=== PATIENT | male | born 1940 | race Caucasian/White ===

== ENCOUNTER 2021-05-28 11:07 | Inpatient (IN) ==
--- NOTE | 2021-05-28 11:11 | Emergency Department Note ---
Impression & Plan Right ureteral calculus, Complicated UTI (urinary tract infection), Hypomagnesemia, Hydronephrosis due to obstruction of ureter, Acute on chronic renal failure ED Provider Note NAME: ZABRINA MATHEWS AGE: 80 SEX: M ARRIVES VIA: Ambulance INFORMANT: Patient, EMS ED PROVIDER(S): Abhilash Arreguin MD CHIEF COMPLAINT: Worsening kidney function, edema, referred. 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 The patient was admitted to [facility] rehab following an admission to [facility] in the setting of having recurrent falls at home. Patient reports he has been feeling increasing weakness over the past several days. He denies any shortness of breath from his recent dyspnea with minimal exertion which he attributes to his deconditioning. He denies any fevers, cough, congestion, nausea, vomiting, diarrhea. He arrives with a Ortiz catheter in place which he understands was placed by [facility] to track urine output and does not believe he was retaining urine. he patient was admitted to [facility] from 05/06-05/08 where the patient had a stent exchange was additionally noted to have a positive urine culture where he was treated with antibiotics. Patient was then admitted to [facility] from 05/21-05/25 for prolonged downtime setting of having urinary infection and acute on chronic renal failure where his creatinine 2. Per records the patient has a history of multidrug resistant Pseudomonas, which was sensitive to cefepime. He was treated with this until he was changed to oral Omnicef on his discharged to his facility. Patient was sent from his acute rehab for worsening renal function despite IV fluid hydration with creatinine rising from 2.4 on 05/21-5.3 today. BUN has risen from 61-75. The patient's potassium was 5.7. The patient's bicarb was 13 with an anion gap of 18. On arrival the patient is chronically ill-appearing but in no acute distress, afebrile stable vital signs. He appears hypervolemic 1+ edema of the bilateral upper and lower extremities. Abdomen is nontender EKG without overt acute ischemia. Chest x-ray with question of left basilar opacity however better characterized on CT of the abdomen pelvis which is more c onsistent with atelectasis. C 14.2K. Platelets within normal limits. H/H 01/25.2 without recent values for comparison. VBG is unremarkable without acidemia. Chemistry without significant metabolic acidosis with bicarb of 20 and normal anion gap. Creatinine continues to remain elevated at 5.4 with BUN of 76. Lactic acid 0.8, within normal limits. Magnesium 1.4 with repletion initiated. Troponin 0.03, within normal limits. Lipase is not elevated. Procalcitonin is mildly elevated 0.78 in the setting of the patient's CKD. UA is suspicious for infection with WBCs and 1+ bacteria. Covid-19 RNA, NAAT negative. CT of the abdomen pelvis demonstrates obstructing 7 mm right UPJ stone with a ssociated hydronephrosis. Additional note is made of the patient's left ureteral stent with gas that is likely related to recent stent exchange. Evidence of cystitis is also seen. Case was discussed with Kathie Ulloa PAC with Dr. [facility] hospitalist, who will evaluate the patient for admission. Case was discussed with RISHABH Bello Urology PAC with R[facility]gett ology. Appreciate recommendations. They will take patient to OR for ureteral stent. Admitting team updated. Triage Nursing notes reviewed and agree them. Prior medical records reviewed Vital Signs: reviewed and remarkable for no significant abnormalities Differential diagnosis: Infection, dehydration, metabolic abnormality, hypo/hyperglycemia, electrolyte disturbance, anemia, hypoxia, cardiac sources, intracerebral event, toxicologic, neurologic, as well as other pathologies. ER treatment provided: See below. Diagnostics interpreted by me: ECG: Sinus rhythm with first-degree AV block, 70 bpm, no ectopy, no overt ST elevation or depression, QTC 423, QRS 88 Cardiac Monitoring: An order for continuous cardiac monitoring was placed and demonstrated sinus rhythm with first-degree AV block, 70 bpm, no ectopy. Laboratory studies: See below Imaging studies: See below Consultation(s): Case was discussed with Kathie Ulloa PAC with Dr. Davis [facility] hospitalist, who will evaluate the patient for admission. RISHABH Bello Urology PAC with [facility]. 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 The patient was admitted to [facility] rehab following an admission to [facility] in the setting of having recurrent falls at home. Patient reports he has been feeling increasing weakness over the past several days. He denies any shortness of breath from his recent dyspnea with minimal exertion which he attributes to his deconditioning. He denies any fevers, cough, congestion, nausea, vomiting, diarrhea. He arrives with a Ortiz catheter in place which he understands was placed by [facility] to track urine output and does not believe he was retaining urine. he patient was admitted to [facility] from 05/06-05/08 where the patient had a stent exchange was additionally noted to have a positive urine culture where he was treated with antibiotics. Patient was then admitted to [facility] from 05/21-05/25 for prolonged downtime setting of having urinary infection and acute on chronic renal failure where his creatinine 2. Per records the patient has a history of multidrug resistant Pseudomonas, which was sensitive to cefepime. He was treated with this until he was changed to oral Omnicef on his discharged to his facility. Patient was sent from his acute rehab for worsening renal function despite IV fluid hydration with creatinine rising from 2.4 on 05/21-5.3 today. BUN has risen from 61-75. The patient's potassium was 5.7. The patient's bicarb was 13 with an anion gap of 18. ROS: See above HPI for pertinent positives & negatives. A total of 10 systems reviewed and were otherwise negative. VITALS:See Below PHYSICAL EXAMINATION: GENERAL: Awake, alert, chronically ill-appearing, in no distress HENT: Normocephalic, atraumatic. Oropharynx unremarkable. EYES: Normal conjunctiva. Sclera non-icteric. NECK: Supple. No nuchal rigidity. FROM. No JVD. RESPIRATORY: Clear to auscultation. CARDIAC: Regular rate, normal rhythm. Extremities warm and well perfused. Pulses equal. ABDOMEN: Soft, non-distended. No tenderness to palpation. No rebound or guarding. No masses. RECTAL: Deferred. MUSCULOSKELETAL: Chest examination reveals no tenderness. The back is symmet rical on inspection without obvious abnormality. There is no CVA tenderness to palpation. No joint edema. EXTREMITIES: Calves are equal size bilaterally and non-tender. 1+ BLE and BUE edema. No discoloration. NEURO: Normal sensorium. No sensory or motor deficits noted. SKIN: No rash or jaundice noted. ED COURSE: Critical Care: I have personally spent greater than 95 minutes of critical care time in the direct management of this patient. This includes bedside care, interpretation of diagnostic studies, and testing, discussion with consultants, patient, and family members, and other required patient management activities. This 95 minutes is in excess of all separately billable procedures. 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 Bilateral renal masses BPH (benign prostatic hyperplasia) Complicated UTI (urinary tract infection) HLD (hyperlipidemia) HTN (hypertension) Pressure ulcer sacrum, unstageable 05/21/21 PVD (peripheral vascular disease) Renal oncocytoma Surgical History History of cystoscopy 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 History of partial nephrectomy History of right hip replacement History of total knee replacement (TKR) Hx of hemorrhoidectomy Family History Mother , 85 Parkinson disease Father COPD (chronic obstructive pulmonary disease) CHF (congestive heart failure) Social History Smoking Status: Never smoker Second Hand Exposure: No; Do You Dip or Chew Tobacco: No; Tobacco Cessation Education Requested by Patient: No Hx Alcohol Use: No Hx Substance Use: No Preferred Language: Romansh Communication Ability: Effective 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 Beliefs That Will Affect Care: None marital status: Single Current Living Situation: Rehab Current Living Situation Comment: pt was at [facility] prior to ER admi ssion Other Information That Helps Us Care for You: No Feels Safe at Home: Yes Safety Concerns: Feels Safe At This Time Assistive Devices: Walker Allergies Allergies Allergy/AdvReac Type Severity Reaction Status Date / Time wheat Allergy Mild SINUS Verified 09/29/06 13:06 PROBLEMS bretylium Allergy Unknown Verified 05/28/21 11:40 pollen extracts Allergy Unknown Verified 05/28/21 11:40 oxycodone AdvReac Mild CONFUSION,"FEELS Verified 05/02/09 02:33 LIKE I'M DRUNK" CONTRASTMEDIA Allergy Intermediate HIVES, Uncoded 05/28/21 11:41 TACHYCARIDA Home Meds Home Medications Medication Instructions Recorded Confirmed acetaminophen 325 mg tablet 650 mg PO Q4 PRN 05/28/21 05/28/21 (Tylenol) allopurinol 100 mg tablet 200 mg PO DAILY 05/28/21 05/28/21 aspirin 81 mg tablet,delayed 81 mg PO DAILY 05/28/21 05/28/21 release atenolol 50 mg tablet 50 mg PO DAILY 05/28/21 05/28/21 atorvastatin 20 mg tablet 20 mg PO DAILY 05/28/21 05/28/21 cefdinir 300 mg capsule 300 mg PO DAILY 05/28/21 05/28/21 cholecalciferol (vitamin D3) 25 25 mcg PO DAILY 05/28/21 05/28/21 mcg (1,000 unit) tablet (Vitamin D3) collagenase clostridium histo. 250 1 applic TOPICAL DAILY 05/28/21 05/28/21 unit/gram topical ointment (Santyl) cyanocobalamin (vitamin B-12) 1,000 mcg PO DAILY 05/28/21 05/28/21 1,000 mcg tablet (Vitamin B-12) docusate sodium 100 mg tablet 100 mg PO BID 05/28/21 05/28/21 enoxaparin 30 mg/0.3 mL 30 mg SUBCUT DAILY 05/28/21 05/28/21 subcutaneous solution fluticasone propionate 50 2 spray INTRANASAL DAILY 05/28/21 05/28/21 mcg/actuation nasal spray,suspension loratadine 10 mg tablet 10 mg PO DAILY 05/28/21 05/28/21 losartan 25 mg tablet 25 mg PO QPM 05/28/21 05/28/21 montelukast 10 mg tablet 10 mg PO DAILY 05/28/21 05/28/21 omeprazole 20 mg capsule,delayed 20 mg PO DAILY 05/28/21 05/28/21 release pantoprazole 40 mg tablet,delayed 40 mg PO HS 05/28/21 05/28/21 release polyethylene glycol 3350 17 gram 17 g PO .DAILY @LUNCH PRN 05/28/21 05/28/21 oral powder packet (Miralax) psyllium 3.4 gram/5.8 gram oral 3.4 g PO DAILY 05/28/21 05/28/21 powder sennosides 8.6 mg-docusate sodium 1 tab-cap PO .DAILY @ LUNCH PRN 05/28/21 05/28/21 50 mg tablet (Senokot-S) sertraline 50 mg tablet 50 mg PO DAILY 05/28/21 05/28/21 tamsulosin 0.4 mg capsule 0.4 mg PO DAILY 05/28/21 05/28/21 tolterodine 2 mg tablet 4 mg PO DAILY 05/28/21 05/28/21 Results & Data (ED) Vital Signs Vital Signs - 24 hr 05/28/21 11:16 05/28/21 11:31 05/28/21 13:16 Temperature 36.8 C Temperature Source Oral Pulse Rate 72 Pulse Rate [Apical] 70 74 Respiratory Rate 19 18 16 Blood Pressure 150/82 H Blood Pressure [Left Arm] 137/78 152/91 H Blood Pressure Mean 104 Blood Pressure Mean [Left Arm] 97 111 Pulse Oximetry 95 95 93 Oxygen Delivery Method Room Air Room Air Room Air Sepsis Recent Fever Within 48 Hours No Sepsis New/Unexplained Change in Mental Status No Sepsis Action Taken by Nursing No Action Required Laboratory Data Attestation: I reviewed the patient's lab results. Result diagrams: 05/28/21 12:04 05/28/21 20:14 Lab Results 05/28/21 05/28/21 05/28/21 Range/Units 12:02 12:04 12:04 WBC 14.20 H (4.8-10.8) K/uL RBC 3.18 L (4.7-6.1) M/uL Hgb 10.0 L (14.0-18.0) g/dL Hct 31.2 L (42-52) % MCV 98.1 (80-100) fL MCH 31.4 (25-34) pg MCHC 32.1 (32-36) g/dL RDW Std Deviation 55.4 H (36.4-46.3) fL RDW Coeff of Raymundo 15.5 H (11.5-14.5) % Plt Count 301 (130-400) K/uL MPV 10.0 (7.4-10.4) fL Immature Gran % (Auto) 0.9 % Neut % (Auto) 75.5 % Lymph % (Auto) 11.4 % [place] % (Auto) 10.2 % Eos % (Auto) 1.9 % Baso % (Auto) 0.1 % Neut # (Auto) 10.72 H (1.4-6.5) K/uL Lymph # (Auto) 1.62 (1.2-3.4) K/uL [place] # (Auto) 1.45 H (0.11-0.59) K/uL Eos # (Auto) 0.27 (0-0.5) K/uL Baso # (Auto) 0.01 (0-0.2) K/uL Immature Gran # (Auto) 0.13 H (0.00-0.02) K/uL PT 12.3 H (9.0-12.0) Seconds INR 1.2 H (0.9-1.1) VBG pH (7.36-7.41) VBG pCO2 (38-50) mmHg VBG pO2 mmHg VBG HCO3 mmol/L VBG O2 Saturation % VBG Base Excess mEq/L Barometric Pressure mm/Hg Sodium (136-145) mmol/L Potassium (3.5-5.1) mmol/L Chloride (98-107) mmol/L Carbon Dioxide (21-32) mmol/L Anion Gap (3-11) BUN (6-23) mg/dl Creatinine (0.6-1.4) mg/dl Est Cr Clr Drug Dosing ml/min Est GFR ( Amer) ml/min Est GFR (Non-Af Amer) ml/min BUN/Creatinine Ratio (10-20) Glucose (70-99(Fasting)) mg/dl Lactate (0.4-2.0) mmol/L Calcium (8.5-10.1) mg/dl Phosphorus (2.5-4.9) mg/dl Magnesium (1.7-2.4) mg/dl Total Bilirubin (0.2-1.0) mg/dl AST (13-39) U/L ALT (7-52) U/L Alkaline Phosphatase (34-104) U/L Total Creatine Kinase (30-223) U/L Troponin I (0-0.04) ng/ml Total Protein (6.0-8.3) gm/dl Albumin (3.4-5.0) gm/dl Globulin (2.5-4.0) gm/dl Albumin/Globulin Ratio (0.9-2) Lipase (11-82) U/L Procalcitonin (0-0.5) ng/ml Urine Color Urine Appearance (Clear) Urine pH (4.5-7.5) Ur Specific [place] (1.000-1.030) Urine Protein (Negative) Urine Glucose (UA) (Negative) Urine Ketones (Negative) Urine Blood (Negative) Urine Nitrite (Negative) Urine Bilirubin (Negative) Urine Urobilinogen (Negative) Ur Leukocyte Esterase (Negative) Urine WBC (Auto) (0-5) /hpf Urine RBC (Auto) (0-4) /hpf U Hyaline Cast (Auto) (0-5) /lpf U Epithel Cells (Auto) (0-5) /lpf Urine Bacteria (Auto) (Negative) Urine Yeast SARS-CoV-2, RNA, NAAT NEGATIVE (NEGATIVE) 05/28/21 05/28/21 05/28/21 Range/Units 12:04 12:04 12:04 WBC (4.8-10.8) K/uL RBC (4.7-6.1) M/uL Hgb (14.0-18.0) g/dL Hct (42-52) % MCV (80-100) fL MCH (25-34) pg MCHC (32-36) g/dL RDW Std Deviation (36.4-46.3) fL RDW Coeff of Raymundo (11.5-14.5) % Plt Count (130-400) K/uL MPV (7.4-10.4) fL Immature Gran % (Auto) % Neut % (Auto) % Lymph % (Auto) % [place] % (Auto) % Eos % (Auto) % Baso % (Auto) % Neut # (Auto) (1.4-6.5) K/uL Lymph # (Auto) (1.2-3.4) K/uL [place] # (Auto) (0.11-0.59) K/uL Eos # (Auto) (0-0.5) K/uL Baso # (Auto) (0-0.2) K/uL Immature Gran # (Auto) (0.00-0.02) K/uL PT (9.0-12.0) Seconds INR (0.9-1.1) VBG pH 7.36 (7.36-7.41) VBG pCO2 38 (38-50) mmHg VBG pO2 35 mmHg VBG HCO3 21 mmol/L VBG O2 Saturation 62.9 % VBG Base Excess -4.4 mEq/L Barometric Pressure 736.1 mm/Hg Sodium 134 L (136-145) mmol/L Potassium 5.0 (3.5-5.1) mmol/L Chloride 105 (98-107) mmol/L Carbon Dioxide 20 L (21-32) mmol/L Anion Gap 9 (3-11) BUN 76 H (6-23) mg/dl Creatinine 5.46 H* (0.6-1.4) mg/dl Est Cr Clr Drug Dosing 12.5 ml/min Est GFR ( Amer) 10.5 ml/min Est GFR (Non-Af Amer) 9.0 ml/min BUN/Creatinine Ratio 13.9 (10-20) Glucose 113 H (70-99(Fasting)) mg/dl Lactate (0.4-2.0) mmol/L Calcium 8.6 (8.5-10.1) mg/dl Phosphorus 2.7 (2.5-4.9) mg/dl Magnesium 1.4 L (1.7-2.4) mg/dl Total Bilirubin 0.5 (0.2-1.0) mg/dl AST 15 (13-39) U/L ALT 17 (7-52) U/L Alkaline Phosphatase 65 (34-104) U/L Total Creatine Kinase 23 L (30-223) U/L Troponin I 0.03 (0-0.04) ng/ml Total Protein 6.1 (6.0-8.3) gm/dl Albumin 2.8 L (3.4-5.0) gm/dl Globulin 3.3 (2.5-4.0) gm/dl Albumin/Globulin Ratio 0.8 L (0.9-2) Lipase 36 (11-82) U/L Procalcitonin 0.78 H (0-0.5) ng/ml Urine Color Urine Appearance (Clear) Urine pH (4.5-7.5) Ur Specific [place] (1.000-1.030) Urine Protein (Negative) Urine Glucose (UA) (Negative) Urine Ketones (Negative) Urine Blood (Negative) Urine Nitrite (Negative) Urine Bilirubin (Negative) Urine Urobilinogen (Negative) Ur Leukocyte Esterase (Negative) Urine WBC (Auto) (0-5) /hpf Urine RBC (Auto) (0-4) /hpf U Hyaline Cast (Auto) (0-5) /lpf U Epithel Cells (Auto) (0-5) /lpf Urine Bacteria (Auto) (Negative) Urine Yeast SARS-CoV-2, RNA, NAAT (NEGATIVE) 05/28/21 05/28/21 Range/Units 12:04 12:42 WBC (4.8-10.8) K/uL RBC (4.7-6.1) M/uL Hgb (14.0-18.0) g/dL Hct (42-52) % MCV (80-100) fL MCH (25-34) pg MCHC (32-36) g/dL RDW Std Deviation (36.4-46.3) fL RDW Coeff of Raymundo (11.5-14.5) % Plt Count (130-400) K/uL MPV (7.4-10.4) fL Immature Gran % (Auto) % Neut % (Auto) % Lymph % (Auto) % [place] % (Auto) % Eos % (Auto) % Baso % (Auto) % Neut # (Auto) (1.4-6.5) K/uL Lymph # (Auto) (1.2-3.4) K/uL [place] # (Auto) (0.11-0.59) K/uL Eos # (Auto) (0-0.5) K/uL Baso # (Auto) (0-0.2) K/uL Immature Gran # (Auto) (0.00-0.02) K/uL PT (9.0-12.0) Seconds INR (0.9-1.1) VBG pH (7.36-7.41) VBG pCO2 (38-50) mmHg VBG pO2 mmHg VBG HCO3 mmol/L VBG O2 Saturation % VBG Base Excess mEq/L Barometric Pressure mm/Hg Sodium (136-145) mmol/L Potassium (3.5-5.1) mmol/L Chloride (98-107) mmol/L Carbon Dioxide (21-32) mmol/L Anion Gap (3-11) BUN (6-23) mg/dl Creatinine (0.6-1.4) mg/dl Est Cr Clr Drug Dosing ml/min Est GFR ( Amer) ml/min Est GFR (Non-Af Amer) ml/min BUN/Creatinine Ratio (10-20) Glucose (70-99(Fasting)) mg/dl Lactate 0.8 (0.4-2.0) mmol/L Calcium (8.5-10.1) mg/dl Phosphorus (2.5-4.9) mg/dl Magnesium (1.7-2.4) mg/dl Total Bilirubin (0.2-1.0) mg/dl AST (13-39) U/L ALT (7-52) U/L Alkaline Phosphatase (34-104) U/L Total Creatine Kinase (30-223) U/L Troponin I (0-0.04) ng/ml Total Protein (6.0-8.3) gm/dl Albumin (3.4-5.0) gm/dl Globulin (2.5-4.0) gm/dl Albumin/Globulin Ratio (0.9-2) Lipase (11-82) U/L Procalcitonin (0-0.5) ng/ml Urine Color Yellow Urine Appearance Turbid A (Clear) Urine pH 7.0 (4.5-7.5) Ur Specific [place] 1.009 (1.000-1.030) Urine Protein 2+ H (Negative) Urine Glucose (UA) Trace H (Negative) Urine Ketones Negative (Negative) Urine Blood 3+ H (Negative) Urine Nitrite Negative (Negative) Urine Bilirubin Negative (Negative) Urine Urobilinogen Negative (Negative) Ur Leukocyte Esterase 3+ H (Negative) Urine WBC (Auto) >30 H (0-5) /hpf Urine RBC (Auto) 10-30 H (0-4) /hpf U Hyaline Cast (Auto) 1-5 (0-5) /lpf U Epithel Cells (Auto) >30 H (0-5) /lpf Urine Bacteria (Auto) 1+ H (Negative) Urine Yeast Not Reportable SARS-CoV-2, RNA, NAAT (NEGATIVE) Administered Medications Diatrizoate Meglumine (Diatrizoate Meglumine 30% 100ml Vial) 50 ml INSTIL UD PRN PRN Reason: xray Stop: 06/01/21 14:51 Last Admin: 05/28/21 16:45 Dose: 20 ml Documented by: [id number] Docusate Sodium (Docusate Sodium 100 Mg Cap) 100 mg PO BID [facility] Stop: 06/27/21 20:59 Last Admin: 05/28/21 20:34 Dose: 100 mg Documented by: [id number] Doxycycline Hyclate (Doxycycline Hyclate 100 Mg Cap) 100 mg PO BID [facility]; Protocol Stop: 06/04/21 18:59 Last Admin: 05/28/21 20:34 Dose: 100 mg Documented by: [id number] Pantoprazole Sodium (Pantoprazole 40 Mg Tab) 40 mg PO HS [facility] Stop: 06/27/21 20:59 Last Admin: 05/28/21 20:34 Dose: 40 mg Documented by: [id number] Discontinued Medications Cefepime HCl (Maxipime) 2,000 mg in 20 mls @ 5 mls/min IV NOW STA Stop: 05/28/21 11:58 Last Admin: 05/28/21 13:01 Dose: 5 mls/min Documented by: [id number] Magnesium Sulfate/Dextrose (Magnesium Sulfate / D5w) 1 gm in 100 mls @ 100 mls/hr IV NOW STA Stop: 05/28/21 13:53 Last Infusion: 05/28/21 14:21 Dose: 0 mls/hr Documented by: [id number] Admin: 05/28/21 13:01 Dose: 100 mls/hr Documented by: [id number] Magnesium Sulfate/Dextrose (Magnesium Sulfate / D5w) 1 gm in 100 mls @ 50 mls/hr IV ONE STA Stop: 05/28/21 16:48 Last Infusion: 05/28/21 16:49 Dose: 0 mls/hr Documented by: [id number] Admin: 05/28/21 14:49 Dose: 50 mls/hr Documented by: [id number] Miscellaneous Information (Consult Pharmacy) 1 ea N/A NOW STA Stop: 05/28/21 14:23 Last Admin: 05/28/21 14:22 Dose: 1 ea Documented by: [id number] Imaging Data Radiologist's Impression: Chest X-Ray 05/28/21 11:19 XR chest 1V portable CLINICAL HISTORY: Chest Pain. COMPARISON STUDY: 04/08/2008 TECHNIQUE: 1 view of the chest FINDINGS: Single frontal view of the chest demonstrates the cardiomediastinal silhouette to be within normal limits. Compared to previous examination, there is a decreased inspiratory effort with elevation of hemidiaphragms and crowding the bronchovascular markings at the lung bases and centrally. Additionally, there is increase alveolar opacity at the left lung base in the presence of early pneumonia cannot be excluded. Follow-up PA and lateral radiographs would be helpful. There is also evidence for small left pleural effusion. There is no evidence for right pleural effusion. There is no evidence for vascular congestion. There is no acute osseous pathology. IMPRESSION: 1. Decreased inspiratory effort with patchy alveolar opacity at the left lung base and small left pleural effusion suspicious for early pneumonia. Follow-up PA and lateral radiographs would be helpful for further evaluation. ACT 112: Negative or not required by law. Electronically signed by: Vladimir Toney M.D. 05/28/2021 12:56 PM Abdomen/Pelvis CT 05/28/21 11:33 CT OF THE ABDOMEN AND PELVIS WITHOUT CONTRAST CLINICAL HISTORY: Acute on chronic renal failure. COMPARISON STUDY: CT of the abdomen and pelvis April 09, 2008. TECHNIQUE: Axial images of the abdomen and pelvis were obtained without IV contrast. Images were reviewed in the axial, sagittal, and coronal planes. Automated exposure control was utilized for the study. A dose lowering technique was utilized adhering to the principles of ALARA. FINDINGS: Cardiomegaly is noted. There are small bilateral pleural effusions. Associated subpleural opacities favor atelectasis. Anasarca is present with body wall edema. No pneumatosis, free air or portal venous gas is present. A left ureteral stent is in place. There is no left hydronephrosis. Gas within the left collecting system may be due to recent instrumentation. There is marked left renal atrophy. A 7 mm right ureteropelvic junction calculus results in moderate right hydronephrosis. 3 mm calculus within lower pole of the right kidney is present. No left ureteral calculi are present. Ortiz balloon within the bladder is noted with gas. Bladder wall thickening is present. Prostate is enlarged, measuring 6.3 cm in transverse dimension. There is bilateral perinephric stranding. Water attenuation bilateral renal lesions favor cysts. 7.7 cm cystic lesion within lower pole of the right kidney may have a mildly thickened wall with minimal layering material. Note is made of a hyperdense 6.3 cm right renal mass which contains calcifications. This corresponds to a fat-containing lesion on CT of April 09, 2018. This represents an angiomyolipoma. There is an indeterminate 3 cm [renal lesion within the anterior cortex of the lower pole on axial image 245 of 521. There is no evidence for a bowel obstruction. Colonic diverticulosis is noted without evidence for acute diverticulitis. Unenhanced images of the spleen and adrenal glands are unremarkable. There are pancreatic parenchymal calcifications consistent with chronic pancreatitis. No biliary or pancreatic ductal dilatation is present. No peripancreatic or pericholecystic stranding. Right hip arthroplasty is noted. Note is made of widening of the anterior aspect of the T9-T10 disc space with vacuum disc phenomenon. There is also gas within the bilateral facet joints at this level. No associated fracture is identified. Aneurysmal dilatation of the infrarenal abdominal aorta is noted, measuring 4 cm. There is also aneurysmal dilatation of the bilateral common iliac arteries and the right internal iliac artery. Right common iliac artery measures 2.9 cm in caliber of the right internal iliac artery measures 3.2 cm 2 left common il iac artery measures 3 cm. There is no evidence for rupture. There is extensive atherosclerotic plaque. IMPRESSION: 1. 7 mm right ureteropelvic ejection calculus results in moderate right hydronephrosis with perinephric stranding. Left ureteral stent in place. No left ureteral calculi. Gas within the left collecting system is nonspecific although likely related to recent instrumentation. An infectious process could appear similar. Enlarged prostate with bladder wall thickening and adjacent infiltration. Ortiz balloon within the bladder. 2. Evidence for volume overload with small bilateral pleural effusions and body wall edema. 3. 6.3 cm hyperdense right renal lesion which corresponds to a fat-containing lesion CT of April 09, 2008. Therefore, this represents an angiomyolipoma. Indeterminate 3 cm left renal lesion. This could reflect a solid renal lesion or less likely complex cyst. 4. 4 cm infrarenal abdominal aortic aneurysm. 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 No rupture. 5. Age indeterminate widening of the anterior aspect of the T9-T10 disc space which may reflect a hyperextension injury. ACT 112: Negative or not required by law. Electronically signed by: Brendon Lorenzana M.D. 05/28/2021 1:17 PM Discharge Plan Visit Data Chief Complaint: Abnormal Labs/Diagnostic Testing Stated Complaint: ABNORMAL LABS, EDEMA TO HANDS, LEGS & FEET ED Provider: Abhilash Arreguin Discharge Problem: Right ureteral calculus, Complicated UTI (urinary tract infection), Hypomagnesemia, Hydronephrosis due to obstruction of ureter, Acute on chronic renal failure Discharge Instructions Interventions: ED Discharge Assessment Last Done: 05/28/21 15:20 Discharge Problem: Acute on chronic renal failure Qualifiers: Acute renal failure type: unspecified Chronic kidney disease stage: unspecified stage Qualified Code(s): N17.9 - Acute kidney failure, unspecified
[2021-05-28] MEDS ORDERED: CEFEPIME 2,000 MG/20 ML VIAL IV STA (11:55)
[2021-05-28 12:15] LABS: Basophils # (auto) 0.01 K/uL (0-0.2); Basophils % (auto) 0.1 %; Eosinophils # (auto) 0.27 K/uL (0-0.5); Eosinophils % (auto) 1.9 %; Hematocrit (blood only) 31.2 % (42-52); Immature Granulocytes # (auto) 0.13 K/uL (0.00-0.02); Immature Granulocytes % (auto) 0.9 %; Lymphocytes # (auto) 1.62 K/uL (1.2-3.4); Lymphocytes % (auto) 11.4 %; Mean Corpuscular Hemoglobin 31.4 pg (25-34); Mean Corpuscular Hgb Conc 32.1 g/dL (32-36); Mean Corpuscular Volume 98.1 fL (80-100); Monocytes # (auto) 1.45 K/uL (0.11-0.59); Monocytes % (auto) 10.2 %; Neutrophils # (auto) 10.72 K/uL (1.4-6.5); Neutrophils % (auto) 75.5 %; Platelet Count 301 K/uL (130-400); RDW Coefficient of Variation 15.5 % (11.5-14.5); RDW Standard Deviation 55.4 fL (36.4-46.3); Red Blood Count 3.18 M/uL (4.7-6.1)
[2021-05-28 12:19] LABS: Base Excess VBG -4.4 mEq/L; Oxygen Saturation VBG 62.9 %; pH VBG 7.36 (7.36-7.41)
[2021-05-28 12:24] LABS: INR 1.2 (0.9-1.1); Prothrombin Time 12.3 Seconds (9.0-12.0)
[2021-05-28 12:44] LABS: Albumin Globulin Ratio 0.8 (0.9-2); Albumin Level 2.8 gm/dl (3.4-5.0); BUN Creatinine Ratio 13.9 (10-20); Bilirubin,Total 0.5 mg/dl (0.2-1.0); Calcium 8.6 mg/dl (8.5-10.1); Creatinine Clr Calc Pharmacy 12.5 ml/min; Est GFR (African American) 10.5 ml/min; Globulin 3.3 gm/dl (2.5-4.0); Magnesium 1.4 mg/dl (1.7-2.4); Phosphorus 2.7 mg/dl (2.5-4.9); Total Protein 6.1 gm/dl (6.0-8.3); Troponin I 0.03 ng/ml (0-0.04)
[2021-05-28] MEDS ORDERED: MAGNESIUM SULFATE / D5W 1 GM/100 ML BAG IV STA ×2 (12:54→14:49)
[2021-05-28 12:56] LABS: Appearance Urine Turbid (Clear); Bacteria Urine Automated 1+ (Negative); Bilirubin Urine Negative (Negative); Blood Urine 3+ (Negative); Color Urine Yellow; Epithelial Cell Urine Auto >30 /lpf (0-5); Glucose Urine UA Trace (Negative); Ketones Urine Negative (Negative); Leukocyte Esterase Urine 3+ (Negative); Nitrite Urine Negative (Negative); Protein Urine 2+ (Negative); Specific Gravity Urine 1.009 (1.000-1.030); Urobilinogen Urine Negative (Negative); WBC Urine Automated >30 /hpf (0-5)
--- NOTE | 2021-05-28 12:58 | XRay Report ---
XR chest 1V portable CLINICAL HISTORY: Chest Pain. COMPARISON STUDY: 04/08/2008 TECHNIQUE: 1 view of the chest FINDINGS: Single frontal view of the chest demonstrates the cardiomediastinal silhouette to be within normal li mits. Compared to previous examination, there is a decreased inspiratory effort with elevation of hem idiaphragms and crowding the bronchovascular markings at the lung bases and centrally. Additionally, there is increase alveolar opacity at the left lung base in the presence of early pneumonia cannot be excluded. Follow-up PA and lateral radiographs would be helpful. There is also evidence for small le ft pleural effusion. There is no evidence for right pleural effusion. There is no evidence for vascul ar congestion. There is no acute osseous pathology. IMPRESSION: 1. Decreased inspiratory effort with patchy alveolar opacity at the left lung base and small left ple ural effusion suspicious for early pneumonia. Follow-up PA and lateral radiographs would be helpful f or further evaluation. ACT 112: Negative or not required by law. Electronically signed by: Vladimir Toney M.D. 05/28/2021 12:56 PM
--- NOTE | 2021-05-28 13:18 | CT Scan Report ---
CT OF THE ABDOMEN AND PELVIS WITHOUT CONTRAST CLINICAL HISTORY: Acute on chronic renal failure. COMPARISON STUDY: CT of the abdomen and pelvis April 09, 2008. TECHNIQUE: Axial images of the abdomen and pelvis were obtained without IV contrast. Images were revi ewed in the axial, sagittal, and coronal planes. Automated exposure control was utilized for the indy dy. A dose lowering technique was utilized adhering to the principles of ALARA. FINDINGS: Cardiomegaly is noted. There are small bilateral pleural effusions. Associated subpleural o pacities favor atelectasis. Anasarca is present with body wall edema. No pneumatosis, free air or portal venous gas is present. A left ureteral stent is in place. There is no left hydronephrosis. Gas within the left collecting system may be due to recent instrumentation. There is marked left renal atrophy. A 7 mm right ureteropelvic junction calculus results in moderate right hydronephrosis. 3 mm calculus within lower pole of the right kidney is present. No left uretera l calculi are present. Ortiz balloon within the bladder is noted with gas. Bladder wall thickening is present. Prostate is enlarged, measuring 6.3 cm in transverse dimension. There is bilateral perineph coco stranding. Water attenuation bilateral renal lesions favor cysts. 7.7 cm cystic lesion within low er pole of the right kidney may have a mildly thickened wall with minimal layering material. Note is made of a hyperdense 6.3 cm right renal mass which contains calcifications. This corresponds to a fat -containing lesion on CT of April 09, 2018. This represents an angiomyolipoma. There is an indeterm inate 3 cm [renal lesion within the anterior cortex of the lower pole on axial image 245 of 521. Ther e is no evidence for a bowel obstruction. Colonic diverticulosis is noted without evidence for acute diverticulitis. Unenhanced images of the spleen and adrenal glands are unremarkable. There are pancre atic parenchymal calcifications consistent with chronic pancreatitis. No biliary or pancreatic ductal dilatation is present. No peripancreatic or pericholecystic stranding. Right hip arthroplasty is not ed. Note is made of widening of the anterior aspect of the T9-T10 disc space with vacuum disc phenome non. There is also gas within the bilateral facet joints at this level. No associated fracture is aubrey ntified. Aneurysmal dilatation of the infrarenal abdominal aorta is noted, measuring 4 cm. There is a lso aneurysmal dilatation of the bilateral common iliac arteries and the right internal iliac artery. Right common iliac artery measures 2.9 cm in caliber of the right internal iliac artery measures 3.2 cm 2 left common iliac artery measures 3 cm. There is no evidence for rupture. There is extensive at herosclerotic plaque. IMPRESSION: 1. 7 mm right ureteropelvic ejection calculus results in moderate right hydronephrosis with perinephr ic stranding. Left ureteral stent in place. No left ureteral calculi. Gas within the left collecting system is nonspecific although likely related to recent instrumentation. An infectious process could appear similar. Enlarged prostate with bladder wall thickening and adjacent infiltration. Ortiz ballo on within the bladder. 2. Evidence for volume overload with small bilateral pleural effusions and body wall edema. 3. 6.3 cm hyperdense right renal lesion which corresponds to a fat-containing lesion CT of March. Therefore, this represents an angiomyolipoma. Indeterminate 3 cm left renal lesion. This coul d reflect a solid renal lesion or less likely complex cyst. 4. 4 cm infrarenal abdominal aortic aneurysm. Aneurysmal dilatation of the bilateral common iliac art eries and right internal iliac artery, as above. No rupture. 5. Age indeterminate widening of the anterior aspect of the T9-T10 disc space which may reflect a hyp erextension injury. ACT 112: Negative or not required by law. Electronically signed by: Brendon Lorenzana M.D. 05/28/2021 1:17 PM
[2021-05-28] MEDS ORDERED: CONSULT PHARMACY STA (14:22)
--- NOTE | 2021-05-28 14:38 | Urology Consultation ---
Date of Consultation May 28, 2021 Assessment & Plan (1) Right ureteral calculus: (2) Hydronephrosis of right kidney: (3) ELIE (acute kidney injury): 80yo M with a chronic left ureteral stent who was admitted with ELIE and suspected UTI in the setting of an obstructing right ureteral stone. - Plan of care reviewed with Dr. Siegel, on-call urologist. - CTAP reviewed - 7mm right UPJ stone with moderate right hydronephrosis, left ureteral stent in place - Pt is afebrile, non- toxic appearing. - Labs reviewed - Wbc 14.20, Creatinine 5.46 - Urine and blood cultures pending, received IV Cefepime in ED. - Given his ELIE and suspected urinary tract infection in the context of an obstructing right ureteral stone, will proceed with OR for cystoscopy, right retrograde pyelogram, right ureteral stent placement. - Risks and benefits to be reviewed with patient by Dr. Siegel. OR notified. IV Cefepime given in ED. Covid test negative. - Patient agreeable to plan, all questions were answered. - Keep NPO. - Maintain Ortiz catheter for maximum drainage. - Continue supportive care, antibiotic therapy, and close monitoring. - Will continue to follow. Supervising Physician Co-Signing Physician Notes Discussed patient with ADRY. Agree with plan. Patient with chronic left ureteral stent with atrophied kidney. Presented with right ureteral calculus and ELIE. Risks and benefits discussed and consent obtained for right ureteral stent placement. Patient can follow up with [facility] urology for stone treatment. 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 A CT abdomen pelvis was obtained on arrival and notable for a 7mm right UPJ stone with moderate right hydronephrosis. The patient was recently admitted to [facility] rehab following an admission to [facility] in the setting of having recurrent falls at home.He was admitted to [facility] from 05/06-05/08 where the patient had a stent exchange was additionally noted to have a positive urine culture where he was treated with antibiotics. Patient was then admitted to [facility] from 05/21-05/25 for prolonged downtime in the setting of having urinary infection and acute on chronic renal failure where his creatinine 2. Per chart review, the patient had a history of multidrug resistant Pseudomonas, which was sensitive to cefepime. He was treated with this until he was changed to oral Omnicef on his discharged to his facility. On arrival, he was afebrile with mild leukocytosis. Hemodynamically stable. Creatinine 5.46. Urinalysis notable for 3+blood, 3+Leukocytes, >30WBC, 10- 30RBC, 1+Bacteria. Urine and blood cultures are pending. Dose of IV Cefepime given in ED. Pt arrived with Ortiz catheter in place which was placed by [facility] for monitoring of urine output. CT IMPRESSION: 1. 7 mm right ureteropelvic ejection calculus results in moderate right hydronephrosis with perinephric stranding. Left ureteral stent in place. No left ureteral calculi. Gas within the left collecting system is nonspecific although likely related to recent instrumentation. An infectious process could appear similar. Enlarged prostate with bladder wall thickening and adjacent infiltration. Ortiz balloon within the bladder. 2. Evidence for volume overload with small bilateral pleural effusions and body wall edema. 3. 6.3 cm hyperdense right renal lesion which corresponds to a fat-containing lesion CT of April 09, 2008. Therefore, this represents an angiomyolipoma. Indeterminate 3 cm left renal lesion. This could reflect a solid renal lesion or less likely complex cyst. 4. 4 cm infrarenal abdominal aortic aneurysm. 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 No rupture. 5. Age indeterminate widening of the anterior aspect of the T9-T10 disc space which may reflect a hyperextension injury Pt examined at bedside in the ED. Awake, resting in bed on arrival. No acute distress. Ortiz intact, draining clear yellow urine. Pt follows with [facility]. Has a hx of left ureteral stricture managed with chronic left ureteral stent. No fevers or chills. Denies nausea/vomiting. Pt denies urinary issues at baseline. Reports that he had breakfast. Allergies Allergy/AdvReac Type Severity Reaction Status Date / Time wheat Allergy Mild SINUS Verified 09/29/06 13:06 PROBLEMS bretylium Allergy Unknown Verified 05/28/21 11:40 pollen extracts Allergy Unknown Verified 05/28/21 11:40 oxycodone AdvReac Mild CONFUSION,"FEELS Verified 05/02/09 02:33 LIKE I'M DRUNK" CONTRASTMEDIA Allergy Intermediate HIVES, Uncoded 05/28/21 11:41 TACHYCARIDA Home Medications Medication Instructions Recorded Confirmed Type acetaminophen 325 mg tablet 650 mg PO Q4 PRN 05/28/21 05/28/21 History (Tylenol) allopurinol 100 mg tablet 200 mg PO DAILY 05/28/21 05/28/21 History aspirin 81 mg tablet,delayed 81 mg PO DAILY 05/28/21 05/28/21 History release atenolol 50 mg tablet 50 mg PO DAILY 05/28/21 05/28/21 History atorvastatin 20 mg tablet 20 mg PO DAILY 05/28/21 05/28/21 History cefdinir 300 mg capsule 300 mg PO DAILY 05/28/21 05/28/21 History cholecalciferol (vitamin D3) 25 25 mcg PO DAILY 05/28/21 05/28/21 History mcg (1,000 unit) tablet (Vitamin D3) collagenase clostridium histo. 250 1 applic TOPICAL DAILY 05/28/21 05/28/21 History unit/gram topical ointment (Santyl) cyanocobalamin (vitamin B-12) 1,000 mcg PO DAILY 05/28/21 05/28/21 History 1,000 mcg tablet (Vitamin B-12) docusate sodium 100 mg tablet 100 mg PO BID 05/28/21 05/28/21 History enoxaparin 30 mg/0.3 mL 30 mg SUBCUT DAILY 05/28/21 05/28/21 History subcutaneous solution fluticasone propionate 50 2 spray INTRANASAL DAILY 05/28/21 05/28/21 History mcg/actuation nasal spray,suspension loratadine 10 mg tablet 10 mg PO DAILY 05/28/21 05/28/21 History losartan 25 mg tablet 25 mg PO QPM 05/28/21 05/28/21 History montelukast 10 mg tablet 10 mg PO DAILY 05/28/21 05/28/21 History omeprazole 20 mg capsule,delayed 20 mg PO DAILY 05/28/21 05/28/21 History release pantoprazole 40 mg tablet,delayed 40 mg PO HS 05/28/21 05/28/21 History release polyethylene glycol 3350 17 gram 17 g PO .DAILY @LUNCH PRN 05/28/21 05/28/21 History oral powder packet (Miralax) psyllium 3.4 gram/5.8 gram oral 3.4 g PO DAILY 05/28/21 05/28/21 History powder sennosides 8.6 mg-docusate sodium 1 tab-cap PO .DAILY @ LUNCH PRN 05/28/21 05/28/21 History 50 mg tablet (Senokot-S) sertraline 50 mg tablet 50 mg PO DAILY 05/28/21 05/28/21 History tamsulosin 0.4 mg capsule 0.4 mg PO DAILY 05/28/21 05/28/21 History tolterodine 2 mg tablet 4 mg PO DAILY 05/28/21 05/28/21 History Patient History Social History Smoking Status: Never smoker Feels Safe at Home: Yes Review of Systems Review of Systems: All systems reviewed & are unremarkable except as noted in HPI & below Physical Exam Constitutional: well developed and well nourished; no acute distress Neck: normal visual inspection Respiratory: normal respiratory effort and able to speak in complete sentences; no labored breathing and no audible wheezes Gastrointestinal (Abdomen): Inspection/Auscultation: abdomen normal to inspection; abdomen not distended Musculoskeletal: Head/Neck/Chest: normocephalic Skin: No visible rashes or lesions to exposed skin areas Neurologic: moves all extremities and awake Psychiatric: Orientation: alert, oriented x 3 and cooperative Genitourinary: Ortiz catheter intact, draining clear yellow urine Results & Data ([facility]) Vital Signs (Past 12 Hours) Vital Signs Temp Pulse Pulse Resp BP BP Pulse Ox 05/28/21 13:16 74 16 152/91 H 93 05/28/21 11:31 70 18 137/78 95 05/28/21 11:16 36.8 C 72 19 150/82 H 95 PG Care Time/CCT Total # of Minutes Spent Total Time Spent with Patient: Total time spent is greater than 50% in coordination of care (as documented) at patient's floor/unit and/or counseling patient: Coding Level of Care Code 98736 Initial Inpt Care Lvl 2 Diagnoses Right ureteral calculus N20.1 Hydronephrosis of right kidney N13.30 ELIE (acute kidney injury) N17.9
--- NOTE | 2021-05-28 14:49 | History & Physical Report ---
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 Recent hospitalization [facility] 05/06-05/08 for left ureteral stent exchange. Rehospitalized [facility] 05/22-05/26 secondary to fall, weakness, acute on chronic CKD, complicated UTI, rhabdomyolysis. Sent to [facility] for rehab. Acute worsening of stage III kidney disease Right ureteral calculus Moderate hydronephrosis of right kidney Marked left renal atrophy with chronic left ureteral stent in place secondary to stricture in setting of partial nephrectomy due to history of renal oncocytoma Anasarca Admit to telemetry Baseline creatinine 1.6-1.7 BUN/creatinine [address] a/p: 7 mm right ureteropelvic ejection calculus results in moderate right hydronephrosis with perinephric stranding. Urology consulted -discussed with Jessie Cleveland at bedside, patient is going to OR for emergent stent placement Continue Rosas catheter Empiric IV cefepime for presumed UTI Daily weights, strict I's and O's Consult nephrology due to worsening renal function and anasarca hold losartan, and avoid nephrotoxic agents Complicated UTI Recent hospitalization urine culture grew multidrug-resistant Pseudomonas, sensitive to cefepime Did not complete full course of treatment and was transitioned on oral Omnicef Repeat urine and blood cultures are pending Empirically started on IV cefepime also empirically start pt on doxcycline due to elevated Procal and CXR concern for ? PNA - pt denies resp sx, may be 2/2 to volume overload Recent fall Back pain CT of abdomen pelvis revealed concern for hyperextension injury of T9-T10 Consult Dr. Burgess with orthopedic spine bed rest for now until seen by Dr. 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 Acosta Verdin MD Pt was seen and examined in collaboration with Dr. Davis, please see addendum History of Present Illness Chief Complaint: Referred due to abnormal labs. 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 Of significance patient was recently hospitalized at [facility] on 05/06-05/08 for left ureteral stent exchange. He was then discharged to home and was subsequently admitted to [facility] on 05/22 after he fell at home and could not get up. He was found to have a mild ELIE, rhabdomyolysis and urinary tract infection. He continued to have back pain and weakness and was a candidate for acute rehab. He was initially started on IV cefepime, given IV fluids and transferred to rehab on oral cefdinir. His urine culture grew multidrug- resistant Pseudomonas only sensitive to IV cefepime. While at [facility] rehab he was doing well participating in therapy. Unfortunately patient continued to have a rise in his creatinine. On 05/27 a Rosas catheter was placed and he was started on 1 L of IV fluid. His creatinine continue to rise and was 5.3 today with an elevated potassium of 5.7. Patient complains of back pain that is nonradiating. This has been present since his fall. He feels it has been improving while at rehab and he has been having improvements in ambulating. He also complains of diffuse swelling of arms and legs which is much worse than baseline. He generally feels weak. He admits to having intermittent fevers while at [facility] with a high of 100. He denies any chills or sweats. He denies any lightheadedness dizziness, chest pain, shortness of breath, hemoptysis, cough, nausea, vomiting, abdominal pain. In ED patient remained hemodynamically stable. His lab work was significant for an ELIE with an elevation of BUN/creatinine to 76 and 5.46. He had mild hypomagnesemia 1.4. His potassium was 5.0. His VBG was WNL. He did have a mild elevation in leukocytosis at 14.20. His H&H was 10.0 and 31.2. Urinalysis consistent with infection and had elevated procalcitonin of 0.78.CT abdomen pelvis reveal 7 mm right ureteropelvic ejection calculus resulting in moderate right hydronephrosis and perinephritic stranding. There is evidence for volume overload and body wall edema. He was empirically started on IV cefepime. Urology was consulted emergently who was planning to take patient to the OR for stenting of right ureter. Allergies Allergy/AdvReac Type Severity Reaction Status Date / Time wheat Allergy Mild SINUS Verified 09/29/06 13:06 PROBLEMS bretylium Allergy Unknown Verified 05/28/21 11:40 pollen extracts Allergy Unknown Verified 05/28/21 11:40 oxycodone AdvReac Mild CONFUSION,"FEELS Verified 05/02/09 02:33 LIKE I'M DRUNK" CONTRASTMEDIA Allergy Intermediate HIVES, Uncoded 05/28/21 11:41 TACHYCARIDA Home Medications Medication Instructions Recorded Confirmed Type acetaminophen 325 mg tablet 650 mg PO Q4 PRN 05/28/21 05/28/21 History (Tylenol) allopurinol 100 mg tablet 200 mg PO DAILY 05/28/21 05/28/21 History aspirin 81 mg tablet,delayed 81 mg PO DAILY 05/28/21 05/28/21 History release atenolol 50 mg tablet 50 mg PO DAILY 05/28/21 05/28/21 History atorvastatin 20 mg tablet 20 mg PO DAILY 05/28/21 05/28/21 History cefdinir 300 mg capsule 300 mg PO DAILY 05/28/21 05/28/21 History cholecalciferol (vitamin D3) 25 25 mcg PO DAILY 05/28/21 05/28/21 History mcg (1,000 unit) tablet (Vitamin D3) collagenase clostridium histo. 250 1 applic TOPICAL DAILY 05/28/21 05/28/21 Hist ory unit/gram topical ointment (Santyl) cyanocobalamin (vitamin B-12) 1,000 mcg PO DAILY 05/28/21 05/28/21 History 1,000 mcg tablet (Vitamin B-12) docusate sodium 100 mg tablet 100 mg PO BID 05/28/21 05/28/21 History enoxaparin 30 mg/0.3 mL 30 mg SUBCUT DAILY 05/28/21 05/28/21 History subcutaneous solution fluticasone propionate 50 2 spray INTRANASAL DAILY 05/28/21 05/28/21 History mcg/actuation nasal spray,suspension loratadine 10 mg tablet 10 mg PO DAILY 05/28/21 05/28/21 History losartan 25 mg tablet 25 mg PO QPM 05/28/21 05/28/21 History montelukast 10 mg tablet 10 mg PO DAILY 05/28/21 05/28/21 History omeprazole 20 mg capsule,delayed 20 mg PO DAILY 05/28/21 05/28/21 History release pantoprazole 40 mg tablet,delayed 40 mg PO HS 05/28/21 05/28/21 History release polyethylene glycol 3350 17 gram 17 g PO .DAILY @LUNCH PRN 05/28/21 05/28/21 History oral powder packet (Miralax) psyllium 3.4 gram/5.8 gram oral 3.4 g PO DAILY 05/28/21 05/28/21 History powder sennosides 8.6 mg-docusate sodium 1 tab-cap PO .DAILY @ LUNCH PRN 05/28/21 05/28/21 History 50 mg tablet (Senokot-S) sertraline 50 mg tablet 50 mg PO DAILY 05/28/21 05/28/21 History tamsulosin 0.4 mg capsule 0.4 mg PO DAILY 05/28/21 05/28/21 History tolterodine 2 mg tablet 4 mg PO DAILY 05/28/21 05/28/21 History Past Med/Surg History Medical History (Updated 05/28/21 @ 18:23 by Shelly Us MD, PhD) Abdominal aortic aneurysm Aneurysm, 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 Bilateral renal masses BPH (benign prostatic hyperplasia) Complicated UTI (urinary tract infection) HLD (hyperlipidemia) HTN (hypertension) Pressure ulcer sacrum, unstageable 05/21/21 PVD (peripheral vascular disease) Renal oncocytoma Surgical History History of cystoscopy 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 History of partial nephrectomy History of right hip replacement History of total knee replacement (TKR) Hx of hemorrhoidectomy Family History Mother , 85 Parkinson disease Father COPD (chronic obstructive pulmonary disease) CHF (congestive heart failure) Social History Smoking Status: Never smoker Second Hand Exposure: No; Do You Dip or Chew Tobacco: No; Tobacco Cessation Education Requested by Patient: No Hx Alcohol Use: No Hx Substance Use: No Preferred Language: Hungarian Communication Ability: Effective Visual Designer Required: No Beliefs That Will Affect Care: None marital status: Single Current Living Situation: Rehab Current Living Situation Comment: pt was at [facility] prior to ER admission Other Information That Helps Us Care for You: No Feels Safe at Home: Yes Safety Concerns: Feels Safe At This Time Assistive Devices: Walker Review of Systems Review of Systems: All systems reviewed & are unremarkable except as noted in HPI & below Physical Exam Physical Exam: Constitutional: WD/WN, elderly, male, obese, vitals as above, NAD, sitting up in bed, pleasant, conversing easily Head: Normocephalic, Atraumatic Eyes: PERRL, conjunctivae normal, anicteric sclerae ENMT: external ear and nose normal, oropharynx normal Neck: trachea midline, no thyromegaly normal visual inspection Respiratory: Increased respiratory effort, poor inspiration due to poor visibility, lungs clear to auscultation, no wheeze, rales, rhonchi. Normal insp/exp effort, no accessory muscle use Cardiovascular: RRR, no murmur, diffuse anasarca of upper extremities and lower extremities Vessels: no JVD or carotid bruit Chest: normal inspection of chest Abdomen: normal bowel sounds, soft, nontender, no hepatosplenomegaly Musculoskeletal: no cyanosis or clubbing, active range of motion x4 Skin: no rashes, warm and dry normal turgor Neurologic: PERRL, EOMI, accommodation nl, no face palsy, no dysarthria CN's II-XI intact bilaterally and moves all extremities Psychiatric: A+Ox3, euthymic affect : Rosas catheter with yellow urine Results & Data Results & Data ([facility]) Vital Signs (Past 12 Hours) Vital Signs Temp Pulse Pulse Resp BP BP Pulse Ox 05/28/21 13:16 74 16 152/91 H 93 05/28/21 11:31 70 18 137/78 95 05/28/21 11:16 36.8 C 72 19 150/82 H 95 Diagnostic Findings Chest X-Ray 05/28/21 11:19 XR chest 1V portable CLINICAL HISTORY: Chest Pain. COMPARISON STUDY: 04/08/2008 TECHNIQUE: 1 view of the chest FINDINGS: Single frontal view of the chest demonstrates the cardiomediastinal silhouette to be within normal limits. Compared to previous examination, there is a decreased inspiratory effort with elevation of hemidiaphragms and crowding the bronchovascular markings at the lung bases and centrally. Additionally, there is increase alveolar opacity at the left lung base in the presence of early pneumonia cannot be excluded. Follow-up PA and lateral radiographs would be helpful. There is also evidence for small left pleural effusion. There is no evidence for right pleural effusion. There is no evidence for vascular congestion. There is no acute osseous pathology. IMPRESSION: 1. Decreased inspiratory effort with patchy alveolar opacity at the left lung base and small left pleural effusion suspicious for early pneumonia. Follow-up PA and lateral radiographs would be helpful for further evaluation. ACT 112: Negative or not required by law. Electronically signed by: Vladimir Toney M.D. 05/28/2021 12:56 PM Abdomen/Pelvis CT 05/28/21 11:33 CT OF THE ABDOMEN AND PELVIS WITHOUT CONTRAST CLINICAL HISTORY: Acute on chronic renal failure. COMPARISON STUDY: CT of the abdomen and pelvis April 09, 2008. TECHNIQUE: Axial images of the abdomen and pelvis were obtained without IV contrast. Images were reviewed in the axial, sagittal, and coronal planes. Automated exposure control was utilized for the study. A dose lowering technique was utilized adhering to the principles of ALARA. FINDINGS: Cardiomegaly is noted. There are small bilateral pleural effusions. Associated subpleural opacities favor atelectasis. Anasarca is present with body wall edema. No pneumatosis, free air or portal venous gas is present. A left ureteral stent is in place. There is no left hydronephrosis. Gas within the left collecting system may be due to recent instrumentation. There is marked left renal atrophy. A 7 mm right ureteropelvic junction calculus results in moderate right hydronephrosis. 3 mm calculus within lower pole of the right kidney is present. No left ureteral calculi are present. Rosas balloon within the bladder is noted with gas. Bladder wall thickening is present. Prostate is enlarged, measuring 6.3 cm in transverse dimension. There is bilateral perinephric stranding. Water attenuation bilateral renal lesions favor cysts. 7.7 cm cystic lesion within lower pole of the right kidney may have a mildly thickened wall with minimal layering material. Note is made of a hyperdense 6.3 cm right renal mass which contains calcifications. This corresponds to a fat-containing lesion on CT of April 09, 2018. This represents an angiomyolipoma. There is an indeterminate 3 cm [renal lesion within the anterior cortex of the lower pole on axial image 245 of 521. There is no evidence for a bowel obstruction. Colonic diverticulosis is noted without evidence for acute diverticulitis. Unenhanced images of the spleen and adrenal glands are unremarkable. There are pancreatic parenchymal calcifications consistent with chronic pancreatitis. No biliary or pancreatic ductal dilatation is present. No peripancreatic or pericholecystic stranding. Right hip arthroplasty is noted. Note is made of widening of the anterior aspect of the T9-T10 disc space with vacuum disc phenomenon. There is also gas within the bilateral facet joints at this level. No associated fracture is identified. Aneurysmal dilatation of the infrarenal abdominal aorta is noted, measuring 4 cm. There is also aneurysmal dilatation of the bilateral common iliac arteries and the right internal iliac artery. Right common iliac artery measures 2.9 cm in caliber of the right internal iliac artery measures 3.2 cm 2 left common iliac artery measures 3 cm. There is no evidence for rupture. There is extensive atherosclerotic plaque. IMPRESSION: 1. 7 mm right ureteropelvic ejection calculus results in moderate right hydronephrosis with perinephric stranding. Left ureteral stent in place. No left ureteral calculi. Gas within the left collecting system is nonspecific although likely related to recent instrumentation. An infectious process could appear similar. Enlarged prostate with bladder wall thickening and adjacent infiltration. Rosas balloon within the bladder. 2. Evidence for volume overload with small bilateral pleural effusions and body wall edema. 3. 6.3 cm hyperdense right renal lesion which corresponds to a fat-containing lesion CT of April 09, 2008. Therefore, this represents an angiomyolipoma. Indeterminate 3 cm left renal lesion. This could reflect a solid renal lesion or less likely complex cyst. 4. 4 cm infrarenal abdominal aortic aneurysm. 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 No rupture. 5. Age indeterminate widening of the anterior aspect of the T9-T10 disc space which may reflect a hyperextension injury. ACT 112: Negative or not required by law. Electronically signed by: Brendon Lorenzana M.D. 05/28/2021 1:17 PM Medications Administered Medication List Discontinued Medications Cefepime HCl (Maxipime) 2,000 mg in 20 mls @ 5 mls/min IV NOW STA Stop: 05/28/21 11:58 Last Admin: 05/28/21 13:01 Dose: 5 mls/min Documented by: [id number] Magnesium Sulfate/Dextrose (Magnesium Sulfate / D5w) 1 gm in 100 mls @ 100 mls/hr IV NOW STA Stop: 05/28/21 13:53 Last Infusion: 05/28/21 14:21 Dose: 0 mls/hr Documented by: [id number] Admin: 05/28/21 13:01 Dose: 100 mls/hr Documented by: [id number] ECG Rate (beats per minute): 70 Rhythm: normal sinus Findings: + T-wave inversion (anterior) COVID-19 Results Results COVID-19 Adm Lab Results: RBC 3.18 M/uL (4.7-6.1) L 05/28/21 WBC 14.20 K/uL (4.8-10.8) H 05/28/21 Hgb 10.0 g/dL (14.0-18.0) L 05/28/21 Hct 31.2 % (42-52) L 05/28/21 Plt Count 301 K/uL (130-400) 05/28/21 Neutrophils (%) (Auto) 75.5 % 05/28/21 Lymphocytes (%) (Auto) 11.4 % 05/28/21 Monocytes # (Auto) 1.45 K/uL (0.11-0.59) H 05/28/21 Eosinophils # (Auto) 0.27 K/uL (0-0.5) 05/28/21 Immature Granulocyte % (Auto) 0.9 % 05/28/21 Neutrophils # (Auto) 10.72 K/uL (1.4-6.5) H 05/28/21 Lymphocytes # (Auto) 1.62 K/uL (1.2-3.4) 05/28/21 Monocytes # (Auto) 1.45 K/uL (0.11-0.59) H 05/28/21 Eosinophils # (Auto) 0.27 K/uL (0-0.5) 05/28/21 Basophils # (Auto) 0.01 K/uL (0-0.2) 05/28/21 Immature Granulocyte # (Auto) 0.13 K/uL (0.00-0.02) H 05/28/21 Na 134 mmol/L (136-145) L 05/28/21 K 5.0 mmol/L (3.5-5.1) 05/28/21 Cl 105 mmol/L (98-107) 05/28/21 CO2 20 mmol/L (21-32) L 05/28/21 Anion Gap 9 (3-11) 05/28/21 BUN 76 mg/dl (6-23) H 05/28/21 Creatinine 5.46 mg/dl (0.6-1.4) H* 05/28/21 BUN/Creatinine Ratio 13.9 (10-20) 05/28/21 Glucose Level 113 mg/dl (70-99(Fasting)) H 05/28/21 Ca 8.6 mg/dl (8.5-10.1) 05/28/21 Phosphorus Level 2.7 mg/dl (2.5-4.9) 05/28/21 Total Bilirubin 0.5 mg/dl (0.2-1.0) 05/28/21 AST/SGOT 15 U/L (13-39) 05/28/21 ALT/SGPT 17 U/L (7-52) 05/28/21 Alkaline Phosphatase 65 U/L (34-104) 05/28/21 Total Protein 6.1 gm/dl (6.0-8.3) 05/28/21 Albumin 2.8 gm/dl (3.4-5.0) L 05/28/21 Globulin 3.3 gm/dl (2.5-4.0) 05/28/21 Albumin/Globulin Ratio 0.8 (0.9-2) L 05/28/21 Total CK 23 U/L (30-223) L 05/28/21 Troponin I 0.03 ng/ml (0-0.04) 05/28/21 Procalcitonin 0.78 ng/ml (0-0.5) H 05/28/21 INR 1.2 (0.9-1.1) H 05/28/21 SARS-CoV-2, RNA, NAAT NEGATIVE (NEGATIVE) 05/28/21 Chest X-Ray 05/28/21 Code Status & VTE Plan Code Status FULL CODE VTE Prophylaxis Plan VTE Prophylaxis will be ordered: Yes Supervising Physician Co-Signing Physician Notes Patient is an 80-year-old male with multiple comorbidities presents from rehab facility for evaluation of abnormal labs. Patient was recently hospitalized and had left ureteral stent exchange and was treated for UTI, ELIE and rhabdomyolysis. Patient had a recent fall. Patient was going multidrug- resistant Pseudomonas on urine culture. Patient also noted to have diffuse swelling of the arms and legs which have been gradually worsening lately. Please review HPI for complete details of presentation. CT abdomen showed moderate right hydronephrosis with perinephric stranding secondary to 7 mm right ureteropelvic junction calculus. Also noted 6.3 cm hyperdense right renal les ion and 3 cm left renal lesion which were also noted on prior imaging. Blood work suggestive of WBC count 14 point 2K, hemoglobin 10.0, sodium 134, BUN 76, creatinine 5.46, magnesium 1.4, procalcitonin 0.75. Urine analysis suggestive of UTI patient had cystoscopy, retrograde pyelogram, right ureteral stent placement and Rosas catheter exchange. On exam patient is morbidly obese, no apparent distress, normocephalic atraumatic, EOMI, normal breath sounds, clear to auscultation, S1-S2, no murmur, abdomen soft, nontender, protuberant, alert, awake, oriented, grossly no focal deficits, bilateral upper and lower extremity edema noted. Patient is admitted for management of ELIE on CKD, obstructive uropathy, complicated UTI, anasarca, hypomagnesemia. Agree with starting on broad-spectrum antibiotics with IV cefepime and doxycycline given possible source of infection complicated UTI, CXR suspicious for early stage of pneumonia, mild elevated procalcitonin. Appreciate urology input. Nephrology consulted as well to help with volume management in setting of ELIE on CKD. Hold nephrotoxic agents as able. Monitor on status closely, I's and O's, daily weight. Replace magnesium supplements and monitor. I personally reviewed the record. Patient is interviewed and examined at bedside. Patient's care is coordinated with Kathie Fulton PA-C. Please refer to the documentation above for details of patient's presentation and for discussion of other issues.
[2021-05-28] MEDS ORDERED: DIATRIZOATE MEGLUMINE 30% 100ML VIAL INSTIL PRN (14:52)
[2021-05-28] MEDS ORDERED: fentaNYL citrate 100 MCG/2 ML VIAL IV PRN (15:02)
[2021-05-28] MEDS ORDERED: ATROPINE SULFATE 0.1 MG/ML 10ML SYR IV PRN (15:02)
[2021-05-28] MEDS ORDERED: ePHEDrine sulfate 50 MG/ML AMP IV PRN (15:02)
[2021-05-28] MEDS ORDERED: LIDOCAINE 2% 2 ML VIAL/AMP(20MG/ML) INFIL ONE (15:06)
[2021-05-28] MEDS ORDERED: fentaNYL citrate 100 MCG/2 ML VIAL ONE (15:06)
[2021-05-28] MEDS ORDERED: PHENYLEPHRINE HCL 10 MG/ML VIAL ONE (15:06)
[2021-05-28] MEDS ORDERED: PROPOFOL IV EMULSION 10 MG/ML 20 ML VIAL IV ONE ×3 (15:06→17:38)
--- NOTE | 2021-05-28 15:32 | Anesthesiology Consultation ---
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 History Surgery Operation Date: 05/28/21 14:15 Proposed Procedures p Cystoscopy, Retrograde Pyelogram, Right Ureteral Stent Placement - Jan Siegel MD Height/Weight Height: 5 ft 4 in Weight: 119.2 kg Allergies Allergy/AdvReac Type Severity Reaction Status Date / Time wheat Allergy Mild SINUS Verified 09/29/06 13:06 PROBLEMS bretylium Allergy Unknown Verified 05/28/21 11:40 pollen extracts Allergy Unknown Verified 05/28/21 11:40 oxycodone AdvReac Mild CONFUSION,"FEELS Verified 05/02/09 02:33 LIKE I'M DRUNK" CONTRASTMEDIA Allergy Intermediate HIVES, Uncoded 05/28/21 11:41 TACHYCARIDA Medications Home Medications Medication Instructions Recorded Confirmed Last Taken acetaminophen 325 mg tablet 650 mg PO Q4 PRN 05/28/21 05/28/21 Unknown (Tylenol) allopurinol 100 mg tablet 200 mg PO DAILY 05/28/21 05/28/21 Unknown aspirin 81 mg tablet,delayed 81 mg PO DAILY 05/28/21 05/28/21 Unknown release atenolol 50 mg tablet 50 mg PO DAILY 05/28/21 05/28/21 Unknown atorvastatin 20 mg tablet 20 mg PO DAILY 05/28/21 05/28/21 Unknown cefdinir 300 mg capsule 300 mg PO DAILY 05/28/21 05/28/21 Unknown cholecalciferol (vitamin D3) 25 25 mcg PO DAILY 05/28/21 05/28/21 Unknown mcg (1,000 unit) tablet (Vitamin D3) collagenase clostridium histo. 250 1 applic TOPICAL DAILY 05/28/21 05/28/21 Unknown unit/gram topical ointment (Santyl) cyanocobalamin (vitamin B-12) 1,000 mcg PO DAILY 05/28/21 05/28/21 Unknown 1,000 mcg tablet (Vitamin B-12) docusate sodium 100 mg tablet 100 mg PO BID 05/28/21 05/28/21 Unknown enoxaparin 30 mg/0.3 mL 30 mg SUBCUT DAILY 05/28/21 05/28/21 Unknown subcutaneous solution fluticasone propionate 50 2 spray INTRANASAL DAILY 05/28/21 05/28/21 Unknown mcg/actuation nasal spray,suspension loratadine 10 mg tablet 10 mg PO DAILY 05/28/21 05/28/21 Unknown losartan 25 mg tablet 25 mg PO QPM 05/28/21 05/28/21 Unknown montelukast 10 mg tablet 10 mg PO DAILY 05/28/21 05/28/21 Unknown omeprazole 20 mg capsule,delayed 20 mg PO DAILY 05/28/21 05/28/21 Unknown release pantoprazole 40 mg tablet,delayed 40 mg PO HS 05/28/21 05/28/21 Unknown release polyethylene glycol 3350 17 gram 17 g PO .DAILY @LUNCH PRN 05/28/21 05/28/21 Un known oral powder packet (Miralax) psyllium 3.4 gram/5.8 gram oral 3.4 g PO DAILY 05/28/21 05/28/21 Unknown powder sennosides 8.6 mg-docusate sodium 1 tab-cap PO .DAILY @ LUNCH PRN 05/28/21 05/28/21 Unknown 50 mg tablet (Senokot-S) sertraline 50 mg tablet 50 mg PO DAILY 05/28/21 05/28/21 Unknown tamsulosin 0.4 mg capsule 0.4 mg PO DAILY 05/28/21 05/28/21 Unknown tolterodine 2 mg tablet 4 mg PO DAILY 05/28/21 05/28/21 Unknown Past Medical History Medical History Abdominal aortic aneurysm Aneurysm, common iliac artery BPH (benign prostatic hyperplasia) Complicated UTI (urinary tract infection) HLD (hyperlipidemia) HTN (hypertension) PVD (peripheral vascular disease) Renal oncocytoma Past Family History Family History Mother , 85 Parkinson disease Father COPD (chronic obstructive pulmonary disease) CHF (congestive heart failure) Past Surgical History Surgical History History of cystoscopy 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 History of partial nephrectomy History of right hip replacement History of total knee replacement (TKR) Hx of hemorrhoidectomy Social History Smoking Status: Never smoker Hx Alcohol Use: No Hx Substance Use: No Physical Exam Vital Signs Last Vital Signs Temp 98.2 F 05/28/21 11:16 Pulse 74 05/28/21 13:16 Resp 16 05/28/21 13:16 BP 152/91 H 05/28/21 13:16 Pulse Ox 93 05/28/21 13:16 Testing Laboratory Results 05/28/21 12:04 05/28/21 12:04 PT 12.3 Seconds (9.0-12.0) H 05/28/21 12:04 INR 1.2 (0.9-1.1) H 05/28/21 12:04 Urine Color Yellow 05/28/21 12:42 Urine Appearance Turbid (Clear) A 05/28/21 12:42 Urine pH 7.0 (4.5-7.5) 05/28/21 12:42 Ur Specific [place] 1.009 (1.000-1.030) 05/28/21 12:42 Urine Protein 2+ (Negative) H 05/28/21 12:42 Urine Glucose (UA) Trace (Negative) H 05/28/21 12:42 Urine Ketones Negative (Negative) 05/28/21 12:42 Urine Nitrite Negative (Negative) 05/28/21 12:42 Ur Leukocyte Esterase 3+ (Negative) H 05/28/21 12:42 Urine WBC (Auto) >30 /hpf (0-5) H 05/28/21 12:42 Urine RBC (Auto) 10-30 /hpf (0-4) H 05/28/21 12:42 U Hyaline Cast (Auto) 1-5 /lpf (0-5) 05/28/21 12:42 U Epithel Cells (Auto) >30 /lpf (0-5) H 05/28/21 12:42 Urine Bacteria (Auto) 1+ (Negative) H 05/28/21 12:42 Laboratory Tests 05/28/21 12:02 SARS-CoV-2, RNA, NAAT NEGATIVE Electrocardiogram Date: 05/28/21 Sinus rhythm with 1st degree A-V block Left axis deviation Pulmonary disease pattern Septal infarct , age undetermined Abnormal ECG When compared with ECG of 08-APR-2008 15:53, Septal infarct is now Present Inverted T waves have replaced nonspecific T wave abnormality in Anterior leads Chest X-Ray Date: 05/28/21 IMPRESSION: 1. Decreased inspiratory effort with patchy alveolar opacity at the left lung base and small left pleural effusion suspicious for early pneumonia. Follow-up PA and lateral radiographs would be helpful for further evaluation.
[2021-05-28] MEDS ORDERED: ePHEDrine sulfate 50 MG/ML SYR ONE (16:32)
--- NOTE | 2021-05-28 16:41 | Post Operative Brief Note ---
PG Immediate Post Op with CF Date of Surgery May 28, 2021 Pre & Post Diagnosis Operation Date: 05/28/21 14:15 Pre-Op Diagnosis: Right ureteral stone Post-Op Diagnosis: Right ureteral stone I identified the patient and participated in the time-out.: Yes Procedure Operation Date: 05/28/21 14:15 Actual Procedures p Cystoscopy, Retrograde Pyelogram, Right Ureteral Stent Placement(Right) - Jan Siegel MD Surgeon Jan Siegel MD Wringer Operator None Estimated Blood Loss 0 Findings See Below Very difficult stent. Hard to find right UO. Bladder difficult to distend. Stent in good position. Purulent discharge from right UO. Specimens Specimen Description: none Drains Ortiz Catheter Anesthesia Type MAC Complications None Disposition Accompanied Patient To Recovery: No Disposition: Recovery Room Overlapping Procedure I was present for: the critical portions of procedure.
--- NOTE | 2021-05-28 16:48 | Fluoroscopy Report ---
FL retrograde includes kub CLINICAL HISTORY: RT TECHNIQUE: 4 views were obtained with the C-arm in the OR with the above procedure. Total fluoroscopy time was 16.0 seconds. Total skin dose was 5.93 mGy. Comparison: None available at the time of this dictation. FINDINGS/IMPRESSION: Intraoperative images were obtained of retrograde cystogram and stent placement. Please correlate with intraoperative fluoroscopy and operative report. ACT 112: Negative or not required by law. Electronically signed by: Goyo Cabezas M.D. 05/28/2021 4:47 PM
--- NOTE | 2021-05-28 16:51 | Operative Report ---
PG Post Operative Report Pre & Post Diagnosis Operation Date: 05/28/21 14:15 Pre-Op Diagnosis: Right ureteral stone Post-Op Diagnosis: Right ureteral stone I identified the patient and participated in the time-out.: Yes Procedure Operation Date: 05/28/21 14:15 Actual Procedures p Cystoscopy, Retrograde Pyelogram with radiographic interpretation Right Uret eral Stent Placement(Right), Ortiz catheter exchange- Jan Siegel MD Surgeon Jan Siegel MD Cyber Transport Systems Specialist None Estimated Blood Loss 0 Findings See Below 1. Very difficult stent. Bladder did not fill well with irrigation and long distal tip of left ureteral stent obscured view of right ureteral opening. Was finally able to intubate this with an angled tip Glidewire with significant difficulty. Stent in appropriate position. Purulent discharge from right ureteral orifice. Specimens None Drains 1. 6 Lebanese by 26 cm right ureteral stent 2. 18 Lebanese Ortiz catheter with 10 cc in balloon Anesthesia Type MAC Complications None Disposition Accompanied Patient To Recovery: No Disposition: Recovery Room Indications 80-year-old male with a reported history of chronic left ureteral stricture with atrophic left kidney and chronic left ureteral stent managed by [facility]. He presented with lethargy and was found to have an ELIE and a CT scan showed a 7 mm right proximal ureteral calculus with obstruction. Mild leukocytosis. Taken to the OR for right ureteral stent placement. Had Ortiz [facility] [place]. Description of Procedure After informed consent was obtained, the patient was transported operative suite. MAC anesthesia was induced. The patient was placed in dorsolithotomy position prepped and draped in a sterile fashion. They received preoperative Zosyn for antibiotic prophylaxis. An appropriate surgical timeout was performed. A 22 Lebanese rigid scope was inserted per urethra into the bladder. Hurt cystoscopy revealed a small capacity bladder with an indwelling left ureteral stent. The distal tip of the stent was quite long and spun the entire width of the bladder and sat on where the right ureteral orifice should be, making this difficult to find.. The angle to find his right UO was very difficult. I attempted to find this with a 30 and 70 degree scope without success. I then attempted to find it with a flexible cystoscope but could not visualize it. I went back into the bladder with a 30 degree cystoscope and I fortunately was able to blindly place an angled tip sensor wire and confirmed placement in the upper pole of the kidney. I advanced a 5 Lebanese open-ended catheter over the wire and remove the wire and shot a right retrograde pyelogram which showed mild right hydronephrosis. There was significant purulent output from the right ureteral orifice. I then replaced the sensor wire and upper pole the kidney and remove the 5 Lebanese open-ended catheter. I then deployed a 6 Lebanese by 26 cm right ureteral stent with a good proximal coil in the kidney and a good distal coil noted in the bladder, confirmed fluoroscopically and under direct visualization, respectively. The bladder was left full and the scope was removed. 18 Lebanese Ortiz catheter was placed with return of urine. The balloon was inflated with 10 cc of sterile water. This concluded the end of the case. All counts were correct at the end of the case. I was present, scrubbed, and actively participated for the entire to the procedure. I attest to the content of the Intraoperative Record and any orders documented therein. Any exceptions are noted below.
--- NOTE | 2021-05-28 17:13 | Anesthesiology Progress Note ---
Date of Service May 28, 2021 Anesthesia Post Procedure Vital Signs Vital Signs: Temp Pulse Pulse Pulse Resp BP BP 05/28/21 17:05 74 25 H 124/68 05/28/21 16:55 73 22 109/62 05/28/21 16:49 97.7 F 83 20 108/59 L 05/28/21 15:39 98.4 F 78 20 163/96 H 05/28/21 15:00 72 20 161/101 H 05/28/21 13:16 74 16 152/91 H 05/28/21 11:31 70 18 137/78 05/28/21 11:16 98.2 F 72 19 150/82 H Pulse Ox 05/28/21 17:05 95 05/28/21 16:55 95 05/28/21 16:49 97 05/28/21 15:39 96 05/28/21 15:00 93 05/28/21 13:16 93 05/28/21 11:31 95 05/28/21 11:16 95 Pain Intensity Right Lower Back: Pain Intensity: 0 Transfer of Care Handoff Completed per policy Notes Mental Status: alert / awake / arousable and participated in evaluation Patient Amnestic to Procedure: Yes Nausea / Vomiting: adequately controlled Pain: adequately controlled Airway Patency, RR, SpO2: stable & adequate BP & HR: stable & adequate Hydration State: stable & adequate Anesthetic Complications: no major complications apparent and Pt Satisfied with anesthetic care
--- NOTE | 2021-05-28 17:38 | Nephrology Consultation ---
Date of Consultation May 28, 2021 Assessment & Plan (1) Acute worsening of stage 3 chronic kidney disease: obstructive uropathy with recurrent ELIE, here stage 3 oliguria status not defined and w/ mildly elevated potassium this AM on outside labs, high normal here. May have other components of ELIE as well > urine difficult to interpret with rosas/stent. baseline creatinine one year ago was 1.3-1.5; after peak 2.4 during [facility] stay, improved to 1.7 by hospital d/c w/ normal K. in the space of 24 hr hrs, creat up to 2.9>4.3 yesterday and 5.3 today w/ hyperkalemia. -no indication for urgent dialysis but cannot rule out need this admission -renal diet -no fluid limit -hold losartan -give lasix 40 mg IV prn resp distress only -no IVF for now > pt may have post obstructive diuresis though, so STRICT I/O -daily bmp, phos, mag -replete mag po if possible and check daily (2) Anasarca associated with disorder of kidney: body wall and extremity edema and BL pleural effusions; hypoalbuminemia > may be from recent hospital stay/ IVF -low threshold for TTE -unable to meaningfully assess (upper tract) proteinuria here -nutrition consult (3) Complicated UTI (urinary tract infection): recurrent UTI w/ MDR pseudomonas, 2 types on last cx; f/u pending cxs -agree w/ cefepime -infectious diseases consultation (4) Right ureteral calculus: stone disease is new for him > s/p / R ureteral stent with purulent drainage (5) Angiomyolipoma of right kidney: stable x yrs but relatively large size noted (6) Bilateral renal masses: 7.7 cm R complex renal cyst in addition to AML (radiology viewer not available for me currently); 3 cm indeterminate L renal lesion > follows w/ Dr Gonzalez [facility]; will need close in f/u History of Present Illness Reason for Consultation: elie on ckd Requesting Physician: TONYA Fulton and Attending Attending Physician: NADIRA Hospitalist History of Present Illness 80 y/o M whom I'm asked to see for acute on chronic renal failure was admitted today from [facility] after labs showed rapidly worsening renal function. On presentation here, K was 5.7, creatinine 5.3 (had been 1.7 on 05/26). R ureteral stone w/ hydronephrosis on CT scan >> Pt went emergently to OR for stone removal, R ureteral stent. Purulent d/c noted during stenting procedure. He is on cefepime. 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 Several recent hospital admissions > 05/06 for 48 hrs [facility] for L ureteral stent exchange; 05/22-05/26 at [place] for ELIE on CKD with reported rhabdomyolysis after a fall and laying 18 hrs and generalized weakness; [facility] 05/26-today. At baseline he lives alone in split level house. During [place] admission he had a course of cefepime for UTI, transitioned to cefdinir prior to d/c. His lasix was stopped at hospital d/c (not given during admission either); his losartan dose was given first 3 days of admission then resumed at d/c. Per admission [facility]&P [facility] urology reviewed admission CT a/p, was aware of R hydronephrosis and R stone, recommended close in OP f/u. One year ago his creatinine was 1.3-1.5; was up to 1.6 at mid Apr [facility] admission and 2.4 on 05/23 admission with K wnl. Creat was 1.7 by [place] discharge. No outpt nephrology care. Pt denies sob/cough; no voiding concerns prior to rosas placement; back pain ongoing past few days. no lightheadedness or chest pain; no n/v/d/c/abd pain. Allergies Allergy/AdvReac Type Severity Reaction Status Date / Time wheat Allergy Mild SINUS Verified 09/29/06 13:06 PROBLEMS bretylium Allergy Unknown Verified 05/28/21 11:40 pollen extracts Allergy Unknown Verified 05/28/21 11:40 oxycodone AdvReac Mild CONFUSION,"FEELS Verified 05/02/09 02:33 LIKE I'M DRUNK" CONTRASTMEDIA Allergy Intermediate HIVES, Uncoded 05/28/21 11:41 TACHYCARIDA Home Medications Medication Instructions Recorded Confirmed Type acetaminophen 325 mg tablet 650 mg PO Q4 PRN 05/28/21 05/28/21 History (Tylenol) allopurinol 100 mg tablet 200 mg PO DAILY 05/28/21 05/28/21 History aspirin 81 mg tablet,delayed 81 mg PO DAILY 05/28/21 05/28/21 History release atenolol 50 mg tablet 50 mg PO DAILY 05/28/21 05/28/21 History atorvastatin 20 mg tablet 20 mg PO DAILY 05/28/21 05/28/21 History cefdinir 300 mg capsule 300 mg PO DAILY 05/28/21 05/28/21 History cholecalciferol (vitamin D3) 25 25 mcg PO DAILY 05/28/21 05/28/21 History mcg (1,000 unit) tablet (Vitamin D3) collagenase clostridium histo. 250 1 applic TOPICAL DAILY 05/28/21 05/28/21 History unit/gram topical ointment (Santyl) cyanocobalamin (vitamin B-12) 1,000 mcg PO DAILY 05/28/21 05/28/21 History 1,000 mcg tablet (Vitamin B-12) docusate sodium 100 mg tablet 100 mg PO BID 05/28/21 05/28/21 History enoxaparin 30 mg/0.3 mL 30 mg SUBCUT DAILY 05/28/21 05/28/21 History subcutaneous solution fluticasone propionate 50 2 spray INTRANASAL DAILY 05/28/21 05/28/21 History mcg/actuation nasal spray,suspension loratadine 10 mg tablet 10 mg PO DAILY 05/28/21 05/28/21 History losartan 25 mg tablet 25 mg PO QPM 05/28/21 05/28/21 History montelukast 10 mg tablet 10 mg PO DAILY 05/28/21 05/28/21 History omeprazole 20 mg capsule,delayed 20 mg PO DAILY 05/28/21 05/28/21 History release pantoprazole 40 mg tablet,delayed 40 mg PO HS 05/28/21 05/28/21 History release polyethylene glycol 3350 17 gram 17 g PO .DAILY @LUNCH PRN 05/28/21 05/28/21 History oral powder packet (Miralax) psyllium 3.4 gram/5.8 gram oral 3.4 g PO DAILY 05/28/21 05/28/21 History powder sennosides 8.6 mg-docusate sodium 1 tab-cap PO .DAILY @ LUNCH PRN 05/28/21 05/28/21 History 50 mg tablet (Senokot-S) sertraline 50 mg tablet 50 mg PO DAILY 05/28/21 05/28/21 History tamsulosin 0.4 mg capsule 0.4 mg PO DAILY 05/28/21 05/28/21 History tolterodine 2 mg tablet 4 mg PO DAILY 05/28/21 05/28/21 History Patient History Medical History (Updated 05/28/21 @ 18:23 by Shelly Us MD, PhD) Abdominal aortic aneurysm Aneurysm, 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 Bilateral renal masses BPH (benign prostatic hyperplasia) Complicated UTI (urinary tract infection) HLD (hyperlipidemia) HTN (hypertension) Pressure ulcer sacrum, unstageable 05/21/21 PVD (peripheral vascular disease) Renal oncocytoma Surgical History History of cystoscopy 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 History of partial nephrectomy History of right hip replacement History of total knee replacement (TKR) Hx of hemorrhoidectomy Family History Mother , 85 Parkinson disease Father COPD (chronic obstructive pulmonary disease) CHF (congestive heart failure) Social History Smoking Status: Never smoker Second Hand Exposure: No; Do You Dip or Chew Tobacco: No; Tobacco Cessation Education Requested by Patient: No Hx Alcohol Use: No Hx Substance Use: No Preferred Language: Yi Communication Ability: Effective 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: No Beliefs That Will Affect Care: None marital status: Single Current Living Situation: Rehab Current Living Situation Comment: pt was at [facility] prior to ER admission Other Information That Helps Us Care for You: No Feels Safe at Home: Yes Safety Concerns: Feels Safe At This Time Assistive Devices: Walker Review of Systems Review of Systems: All systems reviewed & are unremarkable except as noted in HPI & below Physical Exam Constitutional: well developed, well nourished, + morbidly obese and cooperative; no acute distress Eyes: EOM intact bilaterally ENMT: Ears: no external ear abnormality Nose: no external nose abnormality Mouth: + dry oral mucous membranes Neck: no nuchal rigidity Respiratory: + labored breathing (mild) and + tachypneic Auscultation: + diminished lung sounds Cardiovascular: Rate/Rhythm: regular rate and regular rhythm Extremities: + edema (erna bL arms > legs in unna boots) Gastrointestinal (Abdomen): Inspection/Auscultation: normal bowel sounds Percussion/Palpation: abdomen soft; abdomen nontender Musculoskeletal: Extremities: strength 5/5 throughout Skin: no rashes, warm and dry sacrum not examined Neurologic: andujar, fluent speech, no tremor Psychiatric: Orientation: oriented x 3 Genitourinary: rosas + Results & Data ([facility]) Vital Signs (Past 12 Hours) Vital Signs Temp Pulse Pulse Pulse Resp BP BP 05/28/21 17:15 36.6 C 71 22 118/68 05/28/21 17:05 74 25 H 124/68 05/28/21 16:55 73 22 109/62 05/28/21 16:49 36.5 C 83 20 108/59 L 05/28/21 15:39 36.9 C 78 20 163/96 H 05/28/21 15:00 72 20 161/101 H 05/28/21 13:16 74 16 152/91 H 05/28/21 11:31 70 18 137/78 05/28/21 11:16 36.8 C 72 19 150/82 H Pulse Ox 05/28/21 17:15 94 05/28/21 17:05 95 05/28/21 16:55 95 05/28/21 16:49 97 05/28/21 15:39 96 05/28/21 15:00 93 05/28/21 13:16 93 05/28/21 11:31 95 05/28/21 11:16 95 Laboratory Results 05/28/21 12:04 05/28/21 12:[address] a/p w/ IV con JAN 2021 [facility] vascular KIDNEYS/URETERS: Heterogeneously enhancing mass arising from the right kidney which is also partially calcified measuring approximately 5.97 cm which previously measured 6 cm. No change in right cystic structures. No change in l eft renal cyst. Left lower pole soft tissue mass measuring 3.3 cm which previously measured 3.3 cm. Left double-J ureteral stent is again noted. BLADDER: Minimally distended which limits diagnostic evaluation. CT abd/pelvis [place] non con 05/21 Liver: No hepatic masses on noncontrast imaging. Gallbladder and bile ducts: No calcified stones. No ductal dilation. Pancreas: No gross pathology in the pancreas on noncontrast imaging. Pancreatic calcifications most suggestive of chronic pancreatitis. Spleen: No splenomegaly or focal lesions. Adrenal glands: No mass. Kidneys and ureters: Complex right renal cortical lesion, upper pole. Approximately 5 x 5 x 5 cm appearing solid and containing heterogeneous calcification. 6 mm proximal right ureteral calculus causing severe right hydronephrosis. Numerous benign-appearing renal cysts measuring up to 8 cm on the right, no followup necessary. Chronic appearing moderate to severe left renal cortical atrophy. Subcentimeter right calyceal nephrolithiasis. Stomach and bowel: Colonic diverticulosis without diverticulitis. No gross pathology in the small bowel on noncontrast imaging. Appendix: No evidence of appendicitis. Intraperitoneal space: No free air. No significant fluid collection. Vasculature: 43 mm fusiform infrarenal aortic aneurysm. Chronic appearing bilateral common iliac artery aneurysms, 29 mm on the right and 27 mm on the left. Tortuous arterial system suggests chronic hypertension. Lymph nodes: No significantly enlarged lymph nodes. Urinary bladder: Unremarkable as visualized. Reproductive: Severe enlargement of the prostate gland. Bones/joints: Right KORI, visualized portions satisfactory. Chronic appearing partial ankylosis at L1-L2 with kyphosis at this level. Degenerative changes in the spine. Multilevel disc space narrowing. Multilevel central canal and neuroforaminal stenosis in the lumbar spine. Severe degenerative changes in the left hip. No acute fracture or subluxation. Soft tissues: Mild subcutaneous edema. IMPRESSION: 1. Complex right renal cortical lesion most concerning for renal cell carcinoma. 2. 6 mm proximal right ureteral calculus causing severe right hydronephrosis. 3. Left double-J ureteral stent in satisfactory position. However there is severe left hydroureteronephrosis. Concerning for malfunction of the stent. ABd/pelv CT today non con FINDINGS: Cardiomegaly is noted. There are small bilateral pleural effusions. Associated subpleural opacities favor atelectasis. Anasarca is present with body wall edema. No pneumatosis, free air or portal venous gas is present. A left ureteral stent is in place. There is no left hydronephrosis. Gas within the left collecting system may be due to recent instrumentation. There is marked left renal atrophy. A 7 mm right ureteropelvic junction calculus results in moderate right hydrone phrosis. 3 mm calculus within lower pole of the right kidney is present. No left ureteral calculi are present. Rosas balloon within the bladder is noted with gas. Bladder wall thickening is present. Prostate is enlarged, measuring 6.3 cm in transverse dimension. There is bilateral perinephric stranding. Water attenuation bilateral renal lesions favor cysts. 7.7 cm cystic lesion within lower pole of the right kidney may have a mildly thickened wall with minimal layering material. Note is made of a hyperdense 6.3 cm right renal mass which contains calcifications. This corresponds to a fat-containing lesion on CT of April 09, 2018. This represents an angiomyolipoma. There is an indeterminate 3 cm [renal lesion within the anterior cortex of the lower pole on axial image 245 of 521. There is no evidence for a bowel obstruction. Colonic diverticulosis is noted without evidence for acute diverticulitis. Unenhanced images of the spleen and adrenal glands are unremarkable. There are pancreatic parenchymal calcifications consistent with chronic pancreatitis. No biliary or pancreatic ductal dilatation is present. No peripancreatic or pericholecystic stranding. Right hip arthroplasty is noted. Note is made of widening of the anterior aspect of the T9-T10 disc space with vacuum disc phenomenon. There is also gas within the bilateral facet joints at this level. No associated fracture is identified. Aneurysmal dilatation of the infrarenal abdominal aorta is noted, measuring 4 cm. There is also aneurysmal dilatation of the bilateral common iliac arteries and the right internal iliac artery. Right common iliac artery measures 2.9 cm in caliber of the right internal iliac artery measures 3.2 cm 2 left common iliac artery measures 3 cm. There is no evidence for rupture. There is extensive atherosclerotic plaque. IMPRESSION: 1. 7 mm right ureteropelvic ejection calculus results in moderate right hydronephrosis with perinephric stranding. Left ureteral stent in place. No left ureteral calculi. Gas within the left collecting system is nonspecific although likely related to recent instrumentation. An infectious process could appear similar. Enlarged prostate with bladder wall thickening and adjacent infiltration. Rosas balloon within the bladder. 2. Evidence for volume overload with small bilateral pleural effusions and body wall edema. 3. 6.3 cm hyperdense right renal lesion which corresponds to a fat-containing lesion CT of April 09, 2008. Therefore, this represents an angiomyolipoma. Indeterminate 3 cm left renal lesion. This could reflect a solid renal lesion or less likely complex cyst. 4. 4 cm infrarenal abdominal aortic aneurysm. 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 No rupture. 5. Age indeterminate widening of the anterior aspect of the T9-T10 disc space which may reflect a hyperextension injury. CXR today 1. Decreased inspiratory effort with patchy alveolar opacity at the left lung base and small left pleural effusion suspicious for early pneumonia. Follow-up PA and lateral radiographs would be helpful for further evaluation.
[2021-05-28] MEDS ORDERED: ONDANSETRON INJ 2 MG/ML 2 ML VIAL IV PRN (17:59)
[2021-05-28] MEDS ORDERED: ACETAMINOPHEN 325 MG TAB PO PRN (17:59)
[2021-05-28] MEDS ORDERED: POLYETHYLENE (MIRALAX) 17 GM PACK PO PRN (17:59)
[2021-05-28] MEDS ORDERED: MICONAZOLE NITRATE POWDER 43 GM EXT PRN (18:42)
--- NOTE | 2021-05-28 19:05 | Anesthesiology Progress Note ---
Date of Service May 28, 2021 Anesthesia Post Procedure Vital Signs Vital Signs: Temp Pulse Pulse Pulse Resp BP BP 05/28/21 18:49 36.4 C L 67 20 132/80 05/28/21 17:55 36.5 C 70 18 143/79 H 05/28/21 17:53 69 05/28/21 17:39 36.8 C 72 18 150/77 H 05/28/21 17:15 36.6 C 71 22 118/68 05/28/21 17:05 74 25 H 124/68 05/28/21 16:55 73 22 109/62 05/28/21 16:49 36.5 C 83 20 108/59 L 05/28/21 15:39 36.9 C 78 20 163/96 H 05/28/21 15:00 72 20 161/101 H 05/28/21 13:16 74 16 152/91 H 05/28/21 11:31 70 18 137/78 05/28/21 11:16 36.8 C 72 19 150/82 H Pulse Ox 05/28/21 18:49 95 05/28/21 17:55 96 05/28/21 17:53 05/28/21 17:39 95 05/28/21 17:15 94 05/28/21 17:05 95 05/28/21 16:55 95 05/28/21 16:49 97 05/28/21 15:39 96 05/28/21 15:00 93 05/28/21 13:16 93 05/28/21 11:31 95 05/28/21 11:16 95 Pain Intensity Right Lower Back: Pain Intensity: 0 Transfer of Care Handoff Completed per policy Notes Mental Status: alert / awake / arousable and participated in evaluation Patient Amnestic to Procedure: Yes Nausea / Vomiting: adequately controlled Pain: adequately controlled Airway Patency, RR, SpO2: stable & adequate BP & HR: stable & adequate Hydration State: stable & adequate Anesthetic Complications: no major complications apparent and Pt Satisfied with anesthetic care
[2021-05-28] MEDS ORDERED: FUROSEMIDE INJ 20 MG/2 ML VIAL IV PRN (19:32)
[2021-05-28] MEDS: PANTOprazole 40 MG TAB PO SCH (20:34)
[2021-05-28] MEDS: DOXYCYCLINE HYCLATE 100 MG CAP PO SCH (20:34)
[2021-05-28] MEDS: DOCUSATE SODIUM 100 MG CAP PO SCH (20:34)
[2021-05-28 20:54] LABS: BUN Creatinine Ratio 14.7 (10-20); Calcium 8.4 mg/dl (8.5-10.1); Creatinine Clr Calc Pharmacy 13.2 ml/min; Est GFR (African American) 10.9 ml/min; Est GFR (Non-African American) 9.4 ml/min; Potassium 5.5 mmol/L (3.5-5.1)
[2021-05-28 22:21] LABS: Creatinine Urine Random 28.7 mg/dl; Protein Creatinine Ratio Urine 2.9 (0-0.2); Total Protein Urine Random 82.6 mg/dl (0-11.9)
--- NOTE | 2021-05-29 06:13 | Electrocardiogram Report ---
Test Reason : Blood Pressure : / mmHG Vent. Rate : 070 BPM Atrial Rate : 070 BPM P-R Int : 310 ms QRS Dur : 088 ms QT Int : 392 ms P-R-T Axes : 051 -42 021 degrees QTc Int : 423 ms Sinus rhythm with 1st degree A-V block Left axis deviation Possible Septal infarct , age undetermined Abnormal ECG When compared with ECG of 08-APR-2008 15:53, Septal infarct is now Present Confirmed by Salomón Chacko ([id number]) on 05/29/2021 6:13:47 AM Referred By: Confirmed By:Salomón Chacko
[2021-05-29 07:06] LABS: Basophils # (auto) 0.02 K/uL (0-0.2); Basophils % (auto) 0.2 %; Eosinophils # (auto) 0.27 K/uL (0-0.5); Eosinophils % (auto) 2.5 %; Hematocrit (blood only) 31.5 % (42-52); Hemoglobin 9.9 g/dL (14.0-18.0); Immature Granulocytes % (auto) 0.9 %; Lymphocytes # (auto) 1.47 K/uL (1.2-3.4); Lymphocytes % (auto) 13.6 %; Mean Corpuscular Hemoglobin 30.6 pg (25-34); Mean Corpuscular Hgb Conc 31.4 g/dL (32-36); Mean Corpuscular Volume 97.2 fL (80-100); Mean Platelet Volume 9.6 fL (7.4-10.4); Monocytes # (auto) 1.17 K/uL (0.11-0.59); Monocytes % (auto) 10.8 %; Neutrophils # (auto) 7.81 K/uL (1.4-6.5); Platelet Count 262 K/uL (130-400); RDW Coefficient of Variation 15.6 % (11.5-14.5); RDW Standard Deviation 55.1 fL (36.4-46.3); Red Blood Count 3.24 M/uL (4.7-6.1); White Blood Count 10.84 K/uL (4.8-10.8)
[2021-05-29 07:37] LABS: Albumin Globulin Ratio 0.7 (0.9-2); Albumin Level 2.4 gm/dl (3.4-5.0); BUN Creatinine Ratio 15.9 (10-20); Bilirubin,Total 0.4 mg/dl (0.2-1.0); Calcium 7.7 mg/dl (8.5-10.1); Creatinine Clr Calc Pharmacy 13.6 ml/min; Est GFR (African American) 11.6 ml/min; Globulin 3.4 gm/dl (2.5-4.0); Magnesium 1.5 mg/dl (1.7-2.4); Total Protein 5.8 gm/dl (6.0-8.3)
--- NOTE | 2021-05-29 07:53 | Urology Progress Note ---
Date of Service May 29, 2021 Assessment & Plan (1) Hydronephrosis due to obstruction of ureter: (2) Complicated UTI (urinary tract infection): (3) Acute on chronic renal failure: Plan: 80yo M with a chronic left ureteral stent who was admitted with ELIE and suspected complicated UTI in the setting of an obstructing right ureteral stone. - POD #1 s/p Cystoscopy, Retrograde Pyelogram, Right Ureteral Stent Placement with Dr. Siegel - Afebrile, VSS. - Labs reviewed, Wbc down from 14.20-10.84, Creatinine downtrending 5.02 today (5.46 on admission) - Continue to trend. Nephrology following. - Urine culture preliminary no growth, Blood cultures pending. ID consulted. - Continues on IV Cefepime, follow cultures. - Tolerating the ureteral stent with minimal bother. - Ortzi intact, draining clear yellow urine. - Maintain Ortiz catheter for now. OK to attempt voiding trial prior to discharge. - Pt plans to follow-up with his current [facility] urologist following discharge for definitive stone treatment and stent management. - Continue supportive care, antibiotic therapy, and management per primary team. - Will continue to follow. Admission and Anticipated Discharge Date Admission Date: May 28, 2021 Supervising Physician Co-Signing Physician Notes I have discussed Mr. Gutierrez's case with WARREN Bello and agree with the above documentation. Hopefully renal function will continue to improve with maximal drainage of the upper tracts with bilateral stents and Ortiz catheter in place. Subjective Pt examined at bedside this AM. Awake, resting in bed on arrival. No acute distress. No fevers or chills. Denies nausea or vomiting. Ortiz catheter intact, draining clear yellow urine. Tolerating the ureteral stent with minimal bother. Denies abdominal/flank pain. Reports mild b/l lower back pain. Review of Systems Constitutional: as per Subjective / HPI Gastrointestinal: as per Subjective / HPI Genitourinary: + as per Subjective / HPI Physical Exam Constitutional: no acute distress Respiratory: no respiratory distress and no labored breathing Gastrointestinal (Abdomen): Inspection/Auscultation: abdomen normal to inspection; abdomen not distended Musculoskeletal: Head/Neck/Chest: normocephalic Skin: No visible rashes to exposed skin areas Neurologic: awake Psychiatric: Orientation: alert, oriented x 3 and cooperative Genitourinary: Ortiz catheter intact, draining clear yellow urine Results & Data ([facility]) Vital Signs (Past 12 Hours) Vital Signs Temp Pulse Pulse Pulse Resp BP Pulse Ox 05/29/21 07:39 36.8 C 69 18 132/82 93 05/29/21 07:19 36.8 C 69 20 143/82 H 93 05/29/21 03:30 37.1 C 68 20 146/77 H 95 05/28/21 22:33 37.2 C 68 18 147/87 H 95 05/28/21 22:18 64 PG Care Time/CCT Total # of Minutes Spent Total Time Spent with Patient: Total time spent is greater than 50% in coordination of care (as documented) at patient's floor/unit and/or counseling patient: Coding Level of Care Code 88014 Subseq Hosp Care Lvl 2 Diagnoses Hydronephrosis due to obstruction of ureter N13.1 Acute on chronic renal failure N17.9; N18.9 Acute renal failure type: unspecified Chronic kidney disease stage: unspecified stage Complicated UTI (urinary tract infection) N39.0 (1) Acute on chronic renal failure Acute renal failure type: unspecified Chronic kidney disease stage: unspecified stage Qualified Code(s): N17.9 - Acute kidney failure, unspecified; N18.9 - Chronic kidney disease, unspecified
[2021-05-29] MEDS: MONTELUKAST SODIUM 10 MG TABLET PO SCH (08:32)
[2021-05-29] MEDS: DOCUSATE SODIUM 100 MG CAP PO SCH ×2 (08:32→21:36)
[2021-05-29] MEDS: LORATADINE 10 MG TAB PO SCH (08:32)
[2021-05-29] MEDS: TAMSULOSIN HCL 0.4 MG CAP PO SCH (08:32)
[2021-05-29] MEDS: ATORVASTATIN 20 MG TAB PO SCH (08:32)
[2021-05-29] MEDS: SERTRALINE HCL 50 MG TABLET PO SCH (08:32)
[2021-05-29] MEDS: DOXYCYCLINE HYCLATE 100 MG CAP PO SCH ×2 (08:32→21:36)
[2021-05-29] MEDS: PSYLLIUM 58.6% POWDER PACKET PO SCH (08:32)
[2021-05-29] MEDS: ATENOLOL 50 MG TABLET PO SCH (08:32)
[2021-05-29] MEDS: FLUTICASONE PROPIONATE NA SPR 16 GM BTL SCH (08:33)
[2021-05-29] MEDS: allopurinoL 100 MG TAB PO SCH (08:33)
[2021-05-29] MEDS: ASPIRIN 81 MG ECTAB PO SCH (08:33)
[2021-05-29] MEDS: CYANOCOBALAMIN (B-12) 500 MCG TABLET PO SCH (08:33)
--- NOTE | 2021-05-29 08:35 | Orthopedic Consultation ---
Date of Consultation May 29, 2021 Assessment & Plan (1) Hyperextension injury: I reviewed the films and case with Dr. Burgess. We both agree that an MRI of the thoracic spine would be helpful in terms of determining the acuity of any possible injury that had occurred. I have ordered this study and will follow up once the MRI is complete to make further recommendations. In the interim maintain his bedrest with logrolling side to side for skin care. History of Present Illness Attending Physician: Isaac Keating MD History of Present Illness Patient is an 80-year-old male who was admitted from [facility] through the emergency room due to worsening renal function. He has an extensive renal history. During his work-up he had a CT scan of the abdomen pelvis which indicated there is widening in the anterior to space at T9-10 which may represent a hyperextension injury. Were consulted to determine the stability of this injury. Patient was seen bedside in room 286. He answers and simple one- word replies. He is arousable. Per the patient he has no pain at this time. He is not having any pain going down his legs. He denies any recent falls. Sh ould be noted the patient is a bit of a poor historian however. He denies any other numbness, tingling, paresthesias. Allergies Allergy/AdvReac Type Severity Reaction Status Date / Time wheat Allergy Mild SINUS Verified 09/29/06 13:06 PROBLEMS bretylium Allergy Unknown Verified 05/28/21 11:40 pollen extracts Allergy Unknown Verified 05/28/21 11:40 oxycodone AdvReac Mild CONFUSION,"FEELS Verified 05/02/09 02:33 LIKE I'M DRUNK" CONTRASTMEDIA Allergy Intermediate HIVES, Uncoded 05/28/21 11:41 TACHYCARIDA Home Medications Medication Instructions Recorded Confirmed Type acetaminophen 325 mg tablet 650 mg PO Q4 PRN 05/28/21 05/28/21 History (Tylenol) allopurinol 100 mg tablet 200 mg PO DAILY 05/28/21 05/28/21 History aspirin 81 mg tablet,delayed 81 mg PO DAILY 05/28/21 05/28/21 History release atenolol 50 mg tablet 50 mg PO DAILY 05/28/21 05/28/21 History atorvastatin 20 mg tablet 20 mg PO DAILY 05/28/21 05/28/21 History cefdinir 300 mg capsule 300 mg PO DAILY 05/28/21 05/28/21 History cholecalciferol (vitamin D3) 25 25 mcg PO DAILY 05/28/21 05/28/21 History mcg (1,000 unit) tablet (Vitamin D3) collagenase clostridium histo. 250 1 applic TOPICAL DAILY 05/28/21 05/28/21 History unit/gram topical ointment (Santyl) cyanocobalamin (vitamin B-12) 1,000 mcg PO DAILY 05/28/21 05/28/21 History 1,000 mcg tablet (Vitamin B-12) docusate sodium 100 mg tablet 100 mg PO BID 05/28/21 05/28/21 History enoxaparin 30 mg/0.3 mL 30 mg SUBCUT DAILY 05/28/21 05/28/21 History subcutaneous solution fluticasone propionate 50 2 spray INTRANASAL DAILY 05/28/21 05/28/21 History mcg/actuation nasal spray,suspension loratadine 10 mg tablet 10 mg PO DAILY 05/28/21 05/28/21 History losartan 25 mg tablet 25 mg PO QPM 05/28/21 05/28/21 History montelukast 10 mg tablet 10 mg PO DAILY 05/28/21 05/28/21 History omeprazole 20 mg capsule,delayed 20 mg PO DAILY 05/28/21 05/28/21 History release pantoprazole 40 mg tablet,delayed 40 mg PO HS 05/28/21 05/28/21 History release polyethylene glycol 3350 17 gram 17 g PO .DAILY @LUNCH PRN 05/28/21 05/28/21 History oral powder packet (Miralax) psyllium 3.4 gram/5.8 gram oral 3.4 g PO DAILY 05/28/21 05/28/21 History powder sennosides 8.6 mg-docusate sodium 1 tab-cap PO .DAILY @ LUNCH PRN 05/28/21 05/28/21 History 50 mg tablet (Senokot-S) sertraline 50 mg tablet 50 mg PO DAILY 05/28/21 05/28/21 History tamsulosin 0.4 mg capsule 0.4 mg PO DAILY 05/28/21 05/28/21 History tolterodine 2 mg tablet 4 mg PO DAILY 05/28/21 05/28/21 History Patient History Medical History (Updated 05/28/21 @ 21:16 by Abhilash Arreguin MD) Abdominal aortic aneurysm Aneurysm, 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 Bilateral renal masses BPH (benign prostatic hyperplasia) Complicated UTI (urinary tract infection) HLD (hyperlipidemia) HTN (hypertension) Pressure ulcer sacrum, unstageable 05/21/21 PVD (peripheral vascular disease) Renal oncocytoma Surgical History History of cystoscopy 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 History of partial nephrectomy History of right hip replacement History of total knee replacement (TKR) Hx of hemorrhoidectomy Family History Mother , 85 Parkinson disease Father COPD (chronic obstructive pulmonary disease) CHF (congestive heart failure) Social History Smoking Status: Never smoker Second Hand Exposure: No; Hx Alcohol Use: No Hx Substance Use: No Preferred Language: Amharic Communication Ability: Effective Airline Operations Agent Required: No Beliefs That Will Affect Care: None marital status: Single Current Living Situation: Rehab Current Living Situation Comment: pt was at [facility] prior to ER admission Feels Safe at Home: Yes Assistive Devices: Walker Physical Exam Physical Exam: On exam the patient is alert, he is oriented to person. He is nontender with logrolling. He has full motion the hips and knees. Is able to resist dorsiflexion and plantarflexion. He is able to raise his heels off the bed his sensation is intact distally his abdomen soft and nontender. His calves are supple nontender. Results & Data ([facility]) Vital Signs (Past 12 Hours) Vital Signs Temp Pulse Pulse Pulse Resp BP Pulse Ox 05/29/21 07:39 36.8 C 69 18 132/82 93 05/29/21 07:19 36.8 C 69 20 143/82 H 93 05/29/21 03:30 37.1 C 68 20 146/77 H 95 05/28/21 22:33 37.2 C 68 18 147/87 H 95 05/28/21 22:[address] scan of the abdomen pelvis reveals mild anterior disc space widening at T9- 10. Is is not dedicated spine study is difficult to tell whether or not there is any extension or displacement in the middle or posterior columns.
[2021-05-29] MEDS ORDERED: CONSULT PHARMACY STA (08:47)
[2021-05-29] MEDS ORDERED: NON-FORMULARY MEDICATION (Omeprazole 20 mg capsule,delayed release(DR/EC)) PO SCH (09:00)
[2021-05-29] MEDS ORDERED: TOLTERODINE TARTRATE LA 4 MG CAPCR PO SCH (09:00)
[2021-05-29] MEDS ORDERED: CEFEPIME 1,000 MG in SYRINGE 0 ML IV SCH (09:15)
--- NOTE | 2021-05-29 10:43 | Nephrology Progress Note ---
Date of Service May 29, 2021 Assessment & Plan (1) Acute worsening of stage 3 chronic kidney disease: Plan: obstructive uropathy with recurrent ELIE, here nonoliguric stage 3 and w/ still borderline high potassium this AM. May have other components of ELIE as well > urine difficult to interpret with rosas/stent. baseline creatinine one year ago was 1.3-1.5; after peak 2.4 during [facility] stay, improved to 1.7 by hospital d/c w/ normal K. in the space of 24 hrs, creat up to 2.9>4.3 3/2 and 5.3 3/4 w/ hyperkalemia. -has ongoing NAGMA versus respiratory alkalosis > had it last hospital stay too; observe/consider blood gas if worsening -no indication for urgent dialysis but cannot rule out need this admission -renal diet to continue -no fluid limit for now -cont to hold losartan -give lasix 40 mg IV prn resp distress only -no IVF for now > pt may have post obstructive diuresis though, so STRICT I/O -daily bmp, phos, mag -ordered mag po today -check uric acid level tomorrow (ordered) -will need hospital d/c appt with nephrology at d/c (2) Anasarca associated with disorder of kidney: Plan: body wall and extremity edema and BL pleural effusions; hypoalbuminemia > may be from recent hospital stay/ IVF -f/u pending TTE -unable to meaningfully assess (upper tract) proteinuria here -nutrition consult for wound healing > pt w/ 2 sores and hypoalbuminemia (3) Complicated UTI (urinary tract infection): Plan: recurrent UTI w/ MDR pseudomonas, 2 types on last cx; f/u pending cxs -agree w/ cefepime >urine cx is NGTD; blood pending -infectious diseases consultation pending (4) Right ureteral calculus: Plan: stone disease is new for him (apart from distant hx in he stated resolved w/ allopurinol; given his urine pH on presentation though unlikely this current stone was uric acid > s/p 3/3 R ureteral stent with purulent drainage >high risk nephrolithiasis will need OP stone work up w/ nephrology (5) Angiomyolipoma of right kidney: Plan: stable x yrs but relatively large size noted (6) Bilateral renal masses: Plan: 7.7 cm R complex renal cyst in addition to AML (radiology viewer not available for me currently); 3 cm indeterminate L renal lesion > follows w/ Dr Gonzalez [facility] [place] [place]; will need close in f/u Admission and Anticipated Discharge Date Admission Date: May 28, 2021 Physical Exam Constitutional: well developed, well nourished, + morbidly obese and cooperative; no acute distress Eyes: EOM intact bilaterally ENMT: Ears: no external ear abnormality Nose: no external nose abnormality Mouth: + dry oral mucous membranes Neck: no nuchal rigidity Respiratory: + labored breathing (mild) and + tachypneic Auscultation: + diminished lung sounds Cardiovascular: Rate/Rhythm: regular rate and regular rhythm Extremities: + edema (erna bL arms > legs in unna boots) Gastrointestinal (Abdomen): Inspection/Auscultation: normal bowel sounds Percussion/Palpation: abdomen soft; abdomen nontender Musculoskeletal: Extremities: strength 5/5 throughout Skin: no rashes, warm and dry Psychiatric: Orientation: oriented x 3 Results & Data ([facility]) Vital Signs (Past 12 Hours) Vital Signs Temp Pulse Pulse Resp BP Pulse Ox 05/29/21 07:39 36.8 C 69 18 132/82 93 05/29/21 07:19 36.8 C 69 20 143/82 H 93 05/29/21 03:30 37.1 C 68 20 146/77 H 95 Laboratory Results 05/29/21 06:45 05/29/21 06:45
[2021-05-29] MEDS: MAGNESIUM OXIDE 400 MG TAB PO SCH ×2 (12:12→21:36)
--- NOTE | 2021-05-29 15:32 | Magnetic Resonance Report ---
MR thoracic spine wo con CLINICAL HISTORY: T9-T10 disc space widening. Status post fall with back pain. Patient reports open sore on the back. COMPARISON: CT of the abdomen and pelvis from 05/28/2021 TECHNIQUE: Multiplanar multisequence images of the Thoracic Spine were performed without contrast. FINDINGS: Bones: There is no evidence for acute vertebral body fracture. The heights of the thoracic vertebral bodies are maintained. There is evidence for an old anterior wedge deformity of L1. An exaggerated ky photic curvature is seen at this level. The thoracic vertebral bodies are in anatomic alignment. Homo geneous marrow signal is seen without evidence for marrow edema or marrow replacement. Disc spaces: As seen on the CT, there is widening of the T9-T10 disc space level anteriorly. However, this appears chronic in nature with no edematous changes present. There is disc/osteophyte complex p resent projecting into the spinal canal anteriorly. This does decreased amount of CSF surrounding the spinal cord producing mild central canal stenosis at this level. There are no focal disc protrusions or herniations identified. There is no other evidence for spinal canal stenosis or neural foraminal narrowing present. Soft tissues: The thoracic spinal cord appears normal. There are no paraspinal fluid collections or s oft tissue masses identified. No soft tissue wounds are identified. IMPRESSION: 1. No evidence for thoracic compression fracture or marrow edema. 2. Widening of the T9-T10 disc space level anteriorly which appears chronic in nature with no edemato us changes present. There is disc/osteophyte complex present posteriorly at this level with mild cent ral canal stenosis present. 3. There is no evidence for cord compression. 4. Evidence for old anterior wedge deformity of L1. ACT 112: Negative or not required by law. Electronically signed by: Vladimir Toney M.D. 05/29/2021 3:30 PM
--- NOTE | 2021-05-29 17:34 | Hospitalist Progress Note ---
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 Recent hospitalization [facility]06-05/08 for left ureteral stent exchange. Rehospitalized [facility] 05/22-05/26 secondary to fall, weakness, acute on chronic CKD, complicated UTI, rhabdomyolysis. Sent to [facility] for rehab. Acute worsening of stage III kidney disease Right ureteral calculus Moderate hydronephrosis of right kidney Marked left renal atrophy with chronic left ureteral stent in place secondary to stricture in setting of partial nephrectomy due to history of renal oncocytoma Anasarca Admit to telemetry Baseline creatinine 1.6-1.7 BUN/creatinine [address] a/p: 7 mm right ureteropelvic ejection calculus results in moderate right hydronephrosis with perinephric stranding. Urology consulted -discussed with Jessie Cleveland at bedside, patient is going to OR for emergent stent placement Continue Rosas catheter Empiric IV cefepime for presumed UTI Daily weights, strict I's and O's Consult nephrology due to worsening renal function and anasarca hold losartan, and avoid nephrotoxic agents 05/29/2021 05/28/2021: Status post right ureteral stent placement Creatinine only slightly improved from 5.2-5.0 Urine output is good Nephrology on board Continue to monitor closely Use Lasix only if patient has respiratory distress Right pyelonephritis, complicated UTI Recent hospitalization urine culture grew multidrug-resistant Pseudomonas, sensitive to cefepime Did not complete full course of treatment and was transitioned on oral Omnicef Repeat urine and blood cultures are pending Empirically started on IV cefepime also empirically start pt on doxcycline due to elevated Procal and CXR concern for ? PNA - pt denies resp sx, may be 2/2 to volume overload 05/29/2021 Afebrile Urine culture: Pending Continue cefepime IV Recent fall Back pain CT of abdomen pelvis revealed concern for hyperextension injury of T9-T10 Consult Dr. Burgess with orthopedic spine bed rest for now until seen by Dr. Burgess 05/29/2021 Thoracic MRI: No compression fracture Sacral wound ulcer Will need imaging of the lumbar/sacral spine Continue daily wound care Hypomagnesemia replace cautiously in setting of ELIE 4 cm infrarenal abdominal aortic aneurysm Aneurysmal dilatation of bilateral common iliac arteries and right internal iliac artery continue asa/statin pt follows with [facility] vascular for yearly follow up, next 02/23/22 HTN continue atenolol, bp stable HLD continue statin BPH rosas cath in place, placed by [facility] to monitor I/O, no urinary retention per pt on flomax Gout continue allopurinol, but renally dose Dvt ppx: Heparin subcu twice daily Position: Pending PT and OT evaluation Admission and Anticipated Discharge Date Admission Date: May 28, 2021 Subjective Follow-up for ureteral stone, acute renal failure, pyelonephritis, etc. Seen resting in bed, awake, alert, in good spirits States he feels improved compared to yesterday Still feels very tired No shortness of breath, chest pain, palpitations abdominal pain, nausea vomiting, fevers or chills Rosas catheter in place, draining at least 2 L of urine, yellow Has some lower back pain over the wound is located No leg weakness or numbness No other symptoms Review of Systems Review of Systems: all noted and negative except for above Physical Exam Physical Exam: General- oriented x 3, not in distress, speaks in sentences with no effort or accessory muscle use Head- atraumatic Eyes- PERRL, EOMI, anicteric ENT- oropharynx clear Neck- supple, no JVD, no adenopathy, no thyromegaly; carotids +2/2, no bruits appreciated Lungs-decreased breath sounds at the bases, no crackles or wheezing Heart- normal rate, regular rhythm; no murmur, no gallop, no rub appreciated Abdomen- normal bowel sounds, nondistended, soft, nontender, no masses or hepatosplenomegaly Rosas catheter in place: Yellow urine Extremities-positive generalized edema of the arms and legs No erythema/tenderness/warmth on the lower legs Neuro- alert, oriented x 3; CN 2-12 grossly intact; motor 5/5 bilaterally;sensation 100% on all extremities; no other gross focal neurologic deficits Skin- warm & dry Results & Data Results & Data ([facility]) Vital Signs (Past 12 Hours) Vital Signs Temp Pulse Pulse Pulse Resp BP Pulse Ox 05/29/21 16:00 68 05/29/21 15:00 37.0 C 81 20 124/72 91 05/29/21 10:52 36.7 C 78 18 128/74 92 05/29/21 08:00 68 05/29/21 07:39 36.8 C 69 18 132/82 93 05/29/21 07:19 36.8 C 69 20 143/82 H 93 all noted and reviewed including below
--- NOTE | 2021-05-29 18:58 | Electrocardiogram Report ---
Test Reason : Blood Pressure : / mmHG Vent. Rate : 072 BPM Atrial Rate : 072 BPM P-R Int : 324 ms QRS Dur : 088 ms QT Int : 394 ms P-R-T Axes : 090 -44 041 degrees QTc Int : 431 ms Sinus rhythm with 1st degree A-V block Left axis deviation Low voltage QRS Abnormal ECG When compared with ECG of 28-MAY-2021 12:00, T wave inversion no longer evident in Anterior leads Confirmed by Guy Curran ([id number]) on 05/29/2021 6:58:05 PM Referred By: [facility] Confirmed By:Franky Curran
[2021-05-29] MEDS: HEPARIN SOD 5,000 UNIT/0.5 ML VIAL SQ SCH (21:36)
[2021-05-29] MEDS: PANTOprazole 40 MG TAB PO SCH (21:36)
[2021-05-30 07:54] LABS: Basophils # (auto) 0.02 K/uL (0-0.2); Basophils % (auto) 0.2 %; Eosinophils # (auto) 0.39 K/uL (0-0.5); Eosinophils % (auto) 4.4 %; Hematocrit (blood only) 32.2 % (42-52); Hemoglobin 10.2 g/dL (14.0-18.0); Immature Granulocytes # (auto) 0.09 K/uL (0.00-0.02); Lymphocytes # (auto) 1.91 K/uL (1.2-3.4); Lymphocytes % (auto) 21.5 %; Mean Corpuscular Hemoglobin 30.9 pg (25-34); Mean Corpuscular Hgb Conc 31.7 g/dL (32-36); Mean Corpuscular Volume 97.6 fL (80-100); Mean Platelet Volume 9.6 fL (7.4-10.4); Monocytes # (auto) 0.85 K/uL (0.11-0.59); Monocytes % (auto) 9.6 %; Neutrophils # (auto) 5.63 K/uL (1.4-6.5); Neutrophils % (auto) 63.3 %; Platelet Count 304 K/uL (130-400); RDW Coefficient of Variation 15.7 % (11.5-14.5); RDW Standard Deviation 55.2 fL (36.4-46.3); White Blood Count 8.89 K/uL (4.8-10.8)
[2021-05-30] MEDS: CEFEPIME 500 MG in SYRINGE 0 ML IV SCH (08:01)
[2021-05-30] MEDS: MAGNESIUM OXIDE 400 MG TAB PO SCH ×2 (08:02→20:03)
[2021-05-30] MEDS: LORATADINE 10 MG TAB PO SCH (08:03)
[2021-05-30] MEDS: SERTRALINE HCL 50 MG TABLET PO SCH (08:03)
[2021-05-30] MEDS: PSYLLIUM 58.6% POWDER PACKET PO SCH (08:03)
[2021-05-30] MEDS: ATENOLOL 50 MG TABLET PO SCH (08:03)
[2021-05-30] MEDS: MONTELUKAST SODIUM 10 MG TABLET PO SCH (08:03)
[2021-05-30] MEDS: CYANOCOBALAMIN (B-12) 500 MCG TABLET PO SCH (08:03)
[2021-05-30] MEDS: ATORVASTATIN 20 MG TAB PO SCH (08:03)
[2021-05-30] MEDS: allopurinoL 100 MG TAB PO SCH (08:03)
[2021-05-30] MEDS: ASPIRIN 81 MG ECTAB PO SCH (08:03)
[2021-05-30] MEDS: TAMSULOSIN HCL 0.4 MG CAP PO SCH (08:03)
[2021-05-30] MEDS: DOCUSATE SODIUM 100 MG CAP PO SCH ×2 (08:03→20:11)
[2021-05-30] MEDS: FLUTICASONE PROPIONATE NA SPR 16 GM BTL SCH (08:04)
[2021-05-30] MEDS: HEPARIN SOD 5,000 UNIT/0.5 ML VIAL SQ SCH ×2 (08:04→20:11)
[2021-05-30 08:21] LABS: BUN Creatinine Ratio 19.9 (10-20); Calcium 7.7 mg/dl (8.5-10.1); Est GFR (African American) 15.1 ml/min; Est GFR (Non-African American) 13.1 ml/min; Magnesium 1.4 mg/dl (1.7-2.4); Potassium 4.5 mmol/L (3.5-5.1)
--- NOTE | 2021-05-30 09:06 | Nephrology Progress Note ---
Date of Service May 30, 2021 Assessment & Plan (1) Acute worsening of stage 3 chronic kidney disease: Plan: obstructive uropathy with recurrent ELIE, here nonoliguric stage 3 . May have other components of ELIE as well > urine difficult to interpret with rosas/stent. baseline creatinine one year ago was 1.3-1.5; after peak 2.4 during [facility] stay, improved to 1.7 by hospital d/c w/ normal K. in the space of 24 hrs, creat up to 2.9>4.3 3/2 and 5.3 3/4 w/ hyperkalemia. -no indication for urgent dialysis and will yessenia not need it as his renal has improved, he is polyuric but his sodium is wnl and does not appear to be volume depleted,no need for IV fluids for now, Encourage Oral intake. -renal diet to continue -no fluid limit for now -cont to hold losartan -give lasix 40 mg IV prn resp distress only -daily bmp, phos, mag, and replace if necessary. -will need hospital d/c appt with nephrology at d/c (2) Anasarca associated with disorder of kidney: Plan: body wall and extremity edema and BL pleural effusions; hypoalbuminemia > may be from recent hospital stay/ IVF -f/u pending TTE -unable to meaningfully assess (upper tract) proteinuria here -nutrition consult for wound healing > pt w/ 2 sores and hypoalbuminemia (3) Complicated UTI (urinary tract infection): Plan: recurrent UTI w/ MDR pseudomonas, 2 types on last cx; f/u pending cxs -agree w/ cefepime >urine cx is NGTD; blood pending -infectious diseases consultation pending (4) Right ureteral calculus: Plan: stone disease is new for him (apart from distant hx in he stated resolved w/ allopurinol; given his urine pH on presentation though unlikely this current stone was uric acid > s/p 3/3 R ureteral stent with purulent drainage >high risk nephrolithiasis will need OP stone work up w/ nephrology (5) Angiomyolipoma of right kidney: Plan: stable x yrs but relatively large size noted (6) Bilateral renal masses: Plan: 7.7 cm R complex renal cyst in addition to AML (radiology viewer not available for me currently); 3 cm indeterminate L renal lesion > follows w/ Dr Gonzalez [facility]; will need close in f/u Admission and Anticipated Discharge Date Admission Date: May 28, 2021 Subjective Follow-up for ureteral stone, acute renal failure, pyelonephritis, etc. Seen resting in bed, awake, alert, in good spirits No shortness of breath, Review of Systems Review of Systems: All systems reviewed & are unremarkable except as noted in HPI & below Physical Exam Physical Exam: General- oriented x 3, not in distress, speaks in sentences with no effort or accessory muscle use Neck- supple, no JVD, no adenopathy, no thyromegaly Lungs-decreased breath sounds at the bases, no crackles or wheezing Heart- normal rate, regular rhythm; no murmur, no gallop, no rub appreciated Abdomen- normal bowel sounds, nondistended, soft, nontender, no masses or hepatosplenomegaly Extremities-positive generalized edema of the arms and legs, better No erythema/tenderness/warmth on the lower legs Neuro- alert, oriented x 3 Results & Data ([facility]) Vital Signs (Past 12 Hours) Vital Signs Temp Pulse Pulse Resp BP Pulse Ox 05/30/21 07:45 37.0 C 73 19 146/82 H 92 05/30/21 03:40 36.4 C L 71 20 134/77 94 05/29/21 22:20 78 05/29/21 22:15 36.9 C 75 20 121/71 92 Laboratory Results 05/30/21 06:58 05/30/21 06:58
--- NOTE | 2021-05-30 09:07 | Urology Progress Note ---
Date of Service May 30, 2021 Assessment & Plan (1) Acute on chronic renal failure: (2) Complicated UTI (urinary tract infection): (3) Bilateral renal masses: Plan: Noted to have right-sided angiomyolipoma. Indeterminate 3 cm left-sided renal lesion. He should follow-up with his outside urologist for further evaluation/management. Plan: He is currently tolerating bilateral ureteral stents without any trouble. Urinary tract is maximally drained with Ortiz catheter in the stents, and his creatinine is starting to improve. He follows with an outside urologist and is planning to follow-up with them. Most recent urine culture without growth, Argues that the gas within the left collecting system is likely related to the ureteral stent. would be reasonable to de-escalate antibiotics empirically from the urinary tract perspective, however if he redevelops fever would need to re- culture and broaden antibiotics again. Okay to remove Ortiz catheter at the discretion of the primary team. Urology will sign off for now. Please call us if there are any questions or concerns. Admission and Anticipated Discharge Date Admission Date: May 28, 2021 Subjective Patient is feeling well Denies any stent discomfort, denies any fevers or chills, nausea or vomiting. Tolerating Ortiz catheter well, draining clear yellow urine with no issues. Reports that he still feels edematous. Review of Systems Review of Systems: 14 point review of systems negative except for otherwise indicated. Physical Exam Constitutional: well developed and well nourished; no acute distress Eyes: + anicteric sclerae; pupils not irregular Respiratory: normal respiratory effort; no respiratory distress, does not use accessory muscles and no cough Cardiovascular: well perfused Gastrointestinal (Abdomen): Inspection/Auscultation: abdomen normal to inspection; abdomen not distended Musculoskeletal: Extremities: extremities normal to inspection Skin: normal turgor; no rashes and no lesions Neurologic: moves all extremities and awake Psychiatric: Orientation: alert and oriented x 3 Results & Data ([facility]) Vital Signs (Past 12 Hours) Vital Signs Temp Pulse Pulse Resp BP Pulse Ox 05/30/21 07:45 37.0 C 73 19 146/82 H 92 05/30/21 03:40 36.4 C L 71 20 134/77 94 05/29/21 22:20 78 05/29/21 22:15 36.9 C 75 20 121/71 92 PG Care Time/CCT Total # of Minutes Spent Total Time Spent with Patient: Total time spent is greater than 50% in coordination of care (as documented) at patient's floor/unit and/or counseling patient: Coding Level of Care Code 45849 Subseq Hosp Care Lvl 2 Diagnoses Acute on chronic renal failure N17.9; N18.9 Acute renal failure type: unspecified Chronic kidney disease stage: unspecified stage Complicated UTI (urinary tract infection) N39.0 Bilateral renal masses N28.89 (1) Acute on chronic renal failure Acute renal failure type: unspecified Chronic kidney disease stage: unspecified stage Qualified Code(s): N17.9 - Acute kidney failure, unspecified; N18.9 - Chronic kidney disease, unspecified
--- NOTE | 2021-05-30 09:29 | XRay Report ---
XR sacrum coccyx min 2V, XR lumbar spine 2-3V CLINICAL HISTORY: chronic wound, r/o fracture, osteomyelitis TECHNIQUE: 2 views of the sacrococcygeal spine and 3 views of the lumbar spine were obtained. Comparison: None available at the time of this dictation. FINDINGS: No fractures or subluxations are identified. Degenerative changes are seen. Vascular calcifications a nd bilateral nephroureteral stents are seen. There is a right total hip arthroplasty. No focal osteop enia is seen to suggest osteomyelitis. IMPRESSION: No focal osteopenia is seen to suggest osteomyelitis. No acute fracture. Extensive degenerative roman es are seen. ACT 112: Negative or not required by law. Electronically signed by: Goyo Cabezas M.D. 05/30/2021 9:28 AM
[2021-05-30] MEDS: ADVANCED PROBIOTIC 1250 MG CAPSULE PO SCH (09:53)
[2021-05-30] MEDS: DOXYCYCLINE HYCLATE 100 MG CAP PO SCH (09:53)
--- NOTE | 2021-05-30 14:01 | Hospitalist Progress Note ---
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 Recent hospitalization [facility] [place] for left ureteral stent exchange. Rehospitalized [facility] 05/22-05/26 secondary to fall, weakness, acute on chronic CKD, complicated UTI, rhabdomyolysis. Sent to [facility] for rehab. Sepsis in setting of right ureteral stone and UTI causing elie and SOFA score of 4 treated with Cysto, IV Cefepime Acute on CKD 3 Right ureteral calculus Moderate hydronephrosis of right kidney Marked left renal atrophy with chronic left ureteral stent in place secondary to stricture in setting of partial nephrectomy due to history of renal oncocytoma Anasarca Admit to telemetry Baseline creatinine 1.6-1.7 BUN/creatinine [address] a/p: 7 mm right ureteropelvic ejection calculus results in moderate right hydronephrosis with perinephric stranding. Urology consulted -discussed with Jessie Cleveland at bedside, patient is going to OR for emergent stent placement Continue Rosas catheter Empiric IV cefepime for presumed UTI Daily weights, strict I's and O's Consult nephrology due to worsening renal function and anasarca hold losartan, and avoid nephrotoxic agents 05/28/2021: Status post right ureteral stent placement Creatinine improving from 5.2 to 4.0 continues to have good urine output Nephrology on board Continue to monitor closely Use Lasix only if patient has respiratory distress Right pyelonephritis, complicated UTI Recent hospitalization urine culture grew multidrug-resistant Pseudomonas, sensitive to cefepime Did not complete full course of treatment and was transitioned on oral Omnicef Repeat urine and blood cultures are pending Empirically started on IV cefepime also empirically start pt on doxcycline due to elevated Procal and CXR concern for ? PNA - pt denies resp sx, may be 2/2 to volume overload 05/30/2021 Afebrile Urine culture: Negative so far Blood culture: Negative so far Continue cefepime IV Recent fall Back pain Thoracic MRI: 1. No evidence for thoracic compression fracture or marrow edema. 2. Widening of the T9-T10 disc space level anteriorly which appears chronic in nature with no edematous changes present. There is disc/osteophyte complex present posteriorly at this level with mild central canal stenosis present. 3. There is no evidence for cord compression. 4. Evidence for old anterior wedge deformity of L1. Lumbar Spine xray: No focal osteopenia is seen to suggest osteomyelitis. No acu te fracture. Extensive degenerative changes are seen. Sacral xray: No focal osteopenia is seen to suggest osteomyelitis. No acute fracture. Extensive degenerative changes are seen. 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 continue asa/statin pt follows with [facility] vascular for yearly follow up, next 02/23/22 HTN continue atenolol, bp stable HLD continue statin BPH rosas cath in place, placed by [facility] to monitor I/O, no urinary retention per pt on flomax Gout continue allopurinol, but renally dose Dvt ppx: Heparin subcu twice daily Position: Pending PT and OT evaluation Admission and Anticipated Discharge Date Admission Date: May 28, 2021 Subjective ff up for ureteral stone, acute renal failure, etc seen resting in bed, comfortable having lunch states he feels improved today strength improving no dyspnea, chest pain, palpitations, dizziness no abdominal pain has mild lower back pain no leg pain no other symptoms Review of Systems Review of Systems: all noted and negative except for above Physical Exam Physical Exam: General- oriented x 3, not in distress, speaks in sentences with no effort or accessory muscle use Eyes- anicteric Neck- no JVD Lungs- clear breath sounds bilaterally, no crackles Heart- normal rate, regular rhythm; no murmurs Abdomen- normal bowel sounds, nondistended, soft, nontender Extremities- (+) edema of upper and lower ext: improving Neuro- alert, oriented x 3; no gross focal neurologic deficits Skin- warm & dry Results & Data Results & Data ([facility]) Vital Signs (Past 12 Hours) Vital Signs Temp Pulse Resp BP Pulse Ox 05/30/21 11:24 36.9 C 71 18 124/74 93 05/30/21 07:45 37.0 C 73 19 146/82 H 92 05/30/21 03:40 36.4 C L 71 20 134/77 94 all noted and reviewed including below
[2021-05-30] MEDS ORDERED: TOLTERODINE TARTRATE LA 4 MG CAPCR PO STA (19:35)
[2021-05-30] MEDS: PANTOprazole 40 MG TAB PO SCH (20:03)
[2021-05-30] MEDS ORDERED: MoRPHine SULFATE 4 MG/ML 1 ML CARP\\VIAL IV STA (21:41)
[2021-05-30] MEDS ORDERED: HYOSCYAMINE SULFATE 0.125 MG TAB PO STA (22:44)
[2021-05-31] MEDS ORDERED: HYDROmorphone INJ 0.5 MG/0.5 ML SYR IV STA (01:26)
[2021-05-31] MEDS ORDERED: PHENAZOPYRIDINE HCL 200 MG TAB PO STA (01:26)
[2021-05-31 07:34] LABS: BUN Creatinine Ratio 21.5 (10-20); Calcium 7.8 mg/dl (8.5-10.1); Creatinine Clr Calc Pharmacy 15.4 ml/min; Est GFR (African American) 13.5 ml/min; Est GFR (Non-African American) 11.7 ml/min; Potassium 5.2 mmol/L (3.5-5.1)
[2021-05-31] MEDS: SERTRALINE HCL 50 MG TABLET PO SCH (07:48)
[2021-05-31] MEDS: TAMSULOSIN HCL 0.4 MG CAP PO SCH (07:48)
[2021-05-31] MEDS: MAGNESIUM OXIDE 400 MG TAB PO SCH ×2 (07:48→21:08)
[2021-05-31] MEDS: ATENOLOL 50 MG TABLET PO SCH (07:48)
[2021-05-31] MEDS: ASPIRIN 81 MG ECTAB PO SCH (07:48)
[2021-05-31] MEDS: ATORVASTATIN 20 MG TAB PO SCH (07:49)
[2021-05-31] MEDS: MONTELUKAST SODIUM 10 MG TABLET PO SCH (07:49)
[2021-05-31] MEDS: LORATADINE 10 MG TAB PO SCH (07:49)
[2021-05-31] MEDS: PSYLLIUM 58.6% POWDER PACKET PO SCH (07:49)
[2021-05-31] MEDS: ADVANCED PROBIOTIC 1250 MG CAPSULE PO SCH (07:49)
[2021-05-31] MEDS: CEFEPIME 500 MG in SYRINGE 0 ML IV SCH (08:49)
[2021-05-31] MEDS: FLUTICASONE PROPIONATE NA SPR 16 GM BTL SCH (08:49)
[2021-05-31] MEDS: CYANOCOBALAMIN (B-12) 500 MCG TABLET PO SCH (08:49)
[2021-05-31] MEDS: allopurinoL 100 MG TAB PO SCH (08:49)
[2021-05-31] MEDS: DOCUSATE SODIUM 100 MG CAP PO SCH ×2 (08:50→21:09)
[2021-05-31] MEDS: HEPARIN SOD 5,000 UNIT/0.5 ML VIAL SQ SCH ×2 (08:50→21:09)
--- NOTE | 2021-05-31 11:31 | Nephrology Progress Note ---
Date of Service May 31, 2021 Assessment & Plan (1) Acute worsening of stage 3 chronic kidney disease: Plan: obstructive uropathy with recurrent ELIE, here nonoliguric stage 3 . May have other components of ELIE as well > urine difficult to interpret with rosas/stent. baseline creatinine one year ago was 1.3-1.5; after peak 2.4 during [facility] stay, improved to 1.7 by hospital d/c w/ normal K. in the space of 24 hrs, creat up to 2.9>4.3 3/2 and 5.3 3/4 w/ hyperkalemia. -His renal functions got a little worse with creatinine of 4.4, however was obstructed as nursing staff reported of clots. After irrigation this has cleaned up, I expect his urine output and renal functions to improve. No need for IV fluids. -Unlikely will need dialysis, we will continue with daily assessment -renal diet to continue -no fluid limit for now -cont to hold losartan -give lasix 40 mg IV prn resp distress only -daily bmp, phos, mag, and replace if necessary. -will need hospital d/c appt with nephrology at d/c (2) Anasarca associated with disorder of kidney: Plan: body wall and extremity edema and BL pleural effusions; hypoalbuminemia > may be from recent hospital stay/ IVF -Managed by primary (3) Complicated UTI (urinary tract infection): Plan: recurrent UTI w/ MDR pseudomonas, 2 types on last cx; f/u pending cxs -agree w/ cefepime >urine cx is NGTD; blood pending -infectious diseases consultation pending (4) Right ureteral calculus: Plan: stone disease is new for him (apart from distant hx in he stated resolved w/ allopurinol; given his urine pH on presentation though unlikely this current stone was uric acid > s/p 3/3 R ureteral stent with purulent drainage >high risk nephrolithiasis will need OP stone work up w/ nephrology (5) Angiomyolipoma of right kidney: Plan: stable x yrs but relatively large size noted (6) Bilateral renal masses: Plan: 7.7 cm R complex renal cyst in addition to AML (radiology viewer not available for me currently); 3 cm indeterminate L renal lesion > follows w/ Dr Gonzalez [facility] [place]; will need close in f/u Admission and Anticipated Discharge Date Admission Date: May 28, 2021 Subjective ff up for ureteral stone, acute renal failure, etc Resting on bed comfortable and pleasant. Lateral pedal edema which has been stable Renal output-was decreased overnight, nursing staff reported as passing's clots cleared up after irrigation. Bladder scan revealed 600 mils of urine. No clots seen on exam when seen in the morning Review of Systems Review of Systems: All systems reviewed & are unremarkable except as noted in HPI & below Physical Exam Physical Exam: General- oriented x 3, not in distress, speaks in sentences with no effort or accessory muscle use Neck- supple, no JVD, no adenopathy, no thyromegaly Lungs-decreased breath sounds at the bases, no crackles or wheezing Heart- normal rate, regular rhythm; no murmur, no gallop, no rub appreciated Abdomen- normal bowel sounds, nondistended, soft, nontender, no masses or hepatosplenomegaly Extremities-positive generalized edema of the arms and legs, better No erythema/tenderness/warmth on the lower legs Neuro- alert, oriented x 3 Results & Data ([facility]) Vital Signs (Past 12 Hours) Vital Signs Temp Pulse Resp BP Pulse Ox 05/31/21 07:37 36.6 C 79 16 149/83 H 92 05/31/21 02:50 37.0 C 81 20 127/82 91 Laboratory Results 05/30/21 06:58 05/31/21 07:00
--- NOTE | 2021-05-31 14:29 | Hospitalist Progress Note ---
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 rehab due to abnormal labs. Recent hospitalization [facility] [place] 05/06-05/08 for left ureteral stent exchange. Rehospitalized [facility] 05/22-05/26 secondary to fall, weakness, acute on chronic CKD, complicated UTI, rhabdomyolysis. Sent to [facility] for rehab. Sepsis in setting of right ureteral stone and UTI causing elie and SOFA score of 4 treated with Cysto, IV Cefepime Acute on CKD 3 Right ureteral calculus Moderate hydronephrosis of right kidney Marked left renal atrophy with chronic left ureteral stent in place secondary to stricture in setting of partial nephrectomy due to history of renal oncocytoma Anasarca Admit to telemetry Baseline creatinine 1.6-1.7 BUN/creatinine [address] a/p: 7 mm right ureteropelvic ejection calculus results in moderate right hydronephrosis with perinephric stranding. Urology consulted -discussed with Jessie Cleveland at bedside, patient is going to OR for emergent stent placement Continue Rosas catheter Empiric IV cefepime for presumed UTI Daily weights, strict I's and O's Consult nephrology due to worsening renal function and anasarca hold losartan, and avoid nephrotoxic agents 05/28/2021: Status post right ureteral stent placement Creatinine 5.2 to 4.0 to 4.2 urine output less yesterday Nephrology on board Continue to monitor closely for now Use Lasix only if patient has respiratory distress Right pyelonephritis, complicated UTI Recent hospitalization urine culture grew multidrug-resistant Pseudomonas, sensitive to cefepime Did not complete full course of treatment and was transitioned on oral Omnicef Repeat urine and blood cultures are pending Empirically started on IV cefepime also empirically start pt on doxcycline due to elevated Procal and CXR concern for ? PNA - pt denies resp sx, may be 2/2 to volume overload 05/31/2021 Afebrile Urine culture: gram negative bacilli Blood culture: Negative so far Continue cefepime IV Recent fall Back pain Thoracic MRI: 1. No evidence for thoracic compression fracture or marrow edema. 2. Widening of the T9-T10 disc space level anteriorly which appears chronic in nature with no edematous changes present. There is disc/osteophyte complex present posteriorly at this level with mild central canal stenosis present. 3. There is no evidence for cord compression. 4. Evidence for old anterior wedge deformity of L1. Lumbar Spine xray: No focal osteopenia is seen to suggest osteomyelitis. No acute fracture. Extensive degenerative changes are seen. Sacral xray: No focal osteopenia is seen to suggest osteomyelitis. No acute fracture. Extensive degenerative changes are seen. 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, next 02/23/22 HTN continue atenolol, bp stable HLD continue statin BPH rosas cath in place, placed by [facility] to monitor I/O, no urinary retention per pt on flomax Gout continue allopurinol, but renally dose Dvt ppx: Heparin subcu twice daily Position: Pending PT and OT evaluation Admission and Anticipated Discharge Date Admission Date: May 28, 2021 Subjective ff up for acute renal failure, UTI, R ureteral stone, etc had bladder spasms overnight passed some blood clots thru rosas seen resting in bed, comfortable states he feels better today no back, bladder, abdominal pain no chest pain, dyspnea, palpitations, dizziness no fever/chills no other symptoms Review of Systems Review of Systems: all noted and negative except for above Physical Exam Physical Exam: General- oriented x 3, not in distress, speaks in sentences with no effort or accessory muscle use Eyes- anicteric Neck- no JVD Lungs- clear BS BL no rales/wheezing Heart- normal rate, regular rhythm; no murmurs Abdomen- normal bowel sounds, nondistended, soft, nontender Extremities- (+) upper and lower ext edema- moderate, improving Rosas cath: dark yellow urine Neuro- alert, oriented x 3; no gross focal neurologic deficits Skin- warm & dry Results & Data Results & Data ([facility]) Vital Signs (Past 12 Hours) Vital Signs Temp Pulse Resp BP Pulse Ox 05/31/21 11:32 37.2 C 74 18 126/82 91 05/31/21 07:37 36.6 C 79 16 149/83 H 92 05/31/21 02:50 37.0 C 81 20 127/82 91 all noted and reviewed including below
[2021-05-31] MEDS: PANTOprazole 40 MG TAB PO SCH (21:08)
[2021-06-01 08:38] LABS: BUN Creatinine Ratio 23.2 (10-20); Calcium 7.8 mg/dl (8.5-10.1); Creatinine Clr Calc Pharmacy 13.6 ml/min; Est GFR (African American) 11.7 ml/min; Est GFR (Non-African American) 10.1 ml/min; Potassium 5.3 mmol/L (3.5-5.1)
[2021-06-01] MEDS: MAGNESIUM OXIDE 400 MG TAB PO SCH ×2 (08:50→21:46)
[2021-06-01] MEDS: ATORVASTATIN 20 MG TAB PO SCH (08:50)
[2021-06-01] MEDS: CYANOCOBALAMIN (B-12) 500 MCG TABLET PO SCH (08:50)
[2021-06-01] MEDS: MONTELUKAST SODIUM 10 MG TABLET PO SCH (08:50)
[2021-06-01] MEDS: LORATADINE 10 MG TAB PO SCH (08:51)
[2021-06-01] MEDS: ATENOLOL 50 MG TABLET PO SCH (08:51)
[2021-06-01] MEDS: allopurinoL 100 MG TAB PO SCH (08:51)
[2021-06-01] MEDS: TAMSULOSIN HCL 0.4 MG CAP PO SCH (08:51)
[2021-06-01] MEDS: ADVANCED PROBIOTIC 1250 MG CAPSULE PO SCH (08:51)
[2021-06-01] MEDS: DOCUSATE SODIUM 100 MG CAP PO SCH ×2 (08:51→21:45)
[2021-06-01] MEDS: SERTRALINE HCL 50 MG TABLET PO SCH (08:51)
[2021-06-01] MEDS: ASPIRIN 81 MG ECTAB PO SCH (08:51)
[2021-06-01] MEDS: FLUTICASONE PROPIONATE NA SPR 16 GM BTL SCH (08:52)
[2021-06-01] MEDS: CEFEPIME 500 MG in SYRINGE 0 ML IV SCH (08:52)
[2021-06-01] MEDS: HEPARIN SOD 5,000 UNIT/0.5 ML VIAL SQ SCH ×2 (08:52→21:47)
[2021-06-01] MEDS: PSYLLIUM 58.6% POWDER PACKET PO SCH (08:52)
--- NOTE | 2021-06-01 09:51 | Nephrology Progress Note ---
Date of Service June 01, 2021 Assessment & Plan Admission and Anticipated Discharge Date Admission Date: May 28, 2021 Subjective Assessment & Plan (1) Acute worsening of stage 3 chronic kidney disease: Plan: obstructive uropathy with recurrent ELIE.But also had Component of ATN and had Post ATN/Obstructive Diuresis. baseline creatinine one year ago was 1.3-1.5; after peak 2.4 during [facility] stay, improved to 1.7 by hospital d/c w/ normal K. in the space of 24 hrs, creat up to 2.9>4.3 3/2 and 5.3 3/4 w/ hyperkalemia. -His renal functions got a little worse. No need for IV fluids as he still has e/o fluid overload. -Could still need dialysis but not today -renal diet to continue -no fluid limit for now -cont to hold losartan No lasix today (2) Anasarca associated with disorder of kidney: Plan: body wall and extremity edema and BL pleural effusions; hypoalbuminemia > may be from recent hospital stay/ IVF -Managed by primary (3) Complicated UTI (urinary tract infection): Plan: recurrent UTI w/ MDR pseudomonas, 2 types on last cx; f/u pending cxs -agree w/ cefepime >urine cx is NGTD; blood pending -infectious diseases consultation pending (4) Right ureteral calculus: Plan: stone disease is new for him (apart from distant hx in he stated resolved w/ allopurinol; given his urine pH on presentation though unlikely this current stone was uric acid > s/p 3/3 R ureteral stent with purulent drainage >high risk nephrolithiasis will need OP stone work up w/ nephrology (5) Angiomyolipoma of right kidney: Plan: stable x yrs but relatively large size noted (6) Bilateral renal masses: Plan: 7.7 cm R complex renal cyst in addition to AML (radiology viewer not available for me currently); 3 cm indeterminate L renal lesion > follows w/ Dr Gonzalez [facility]; will need close in f/u Admission and Anticipated Discharge Date Admission Date: May 28, 2021 Subjective ff up for ureteral stone, acute renal failure, etc Resting on bed comfortable and pleasant. Lateral pedal edema which has been stable Renal output-was decreased overnight, nursing staff reported as passing's clots cleared up after irrigation. Bladder scan revealed 600 mils of urine. No clots seen on exam when seen in the morning Review of Systems Review of Systems: All systems reviewed & are unremarkable except as noted in HPI & below Physical Exam Physical Exam: General- oriented x 3, not in distress, speaks in sentences with no effort or accessory muscle use Neck- supple, no JVD, no adenopathy, no thyromegaly Lungs-decreased breath sounds at the bases, no crackles or wheezing Heart- normal rate, regular rhythm; no murmur, no gallop, no rub appreciated Abdomen- normal bowel sounds, nondistended, soft, nontender, no masses or hepatosplenomegaly Extremities-positive generalized edema of the arms and legs, better No erythema/tenderness/warmth on the lower legs Neuro- alert, oriented x 3 Results & Data ([facility]) Vital Signs (Past 12 Hours) Vital Signs Temp Pulse Pulse Resp BP Pulse Ox 06/01/21 07:33 36.9 C 72 19 147/93 H 93 06/01/21 05:01 37.2 C 73 18 141/89 H 91 06/01/21 02:02 75 05/31/21 23:25 36.9 C 75 20 137/78 92
--- NOTE | 2021-06-01 09:54 | Hospitalist Progress Note ---
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 [place] [facility] [place]teral stent exchange. Rehospitalized [facility] 05/22-05/26 secondary to fall, weakness, acute on chronic CKD, complicated UTI, rhabdomyolysis. Sent to [facility] for rehab. Sepsis in setting of right ureteral stone and UTI causing elie and SOFA score of 4 treated with Cysto, IV Cefepime Acute on CKD 3 Right ureteral calculus Moderate hydronephrosis of right kidney Marked left renal atrophy with chronic left ureteral stent in place secondary to stricture in setting of partial nephrectomy due to history of renal oncocytoma Anasarca Admit to telemetry Baseline creatinine 1.6-1.7 BUN/creatinine [address] a/p:7 mm right ureteropelvic ejection calculus results in moderate right hydronephrosis with perinephric stranding. Urology consulted -discussed with Jessie Cleveland at bedside, patient is going to OR for emergent stent placement Continue Rosas catheter Empiric IV cefepime for presumed UTI Daily weights, strict I's and O's Consult nephrology due to worsening renal function and anasarca hold losartan, and avoid nephrotoxic agents 05/28/2021: Status post right ureteral stent placement Creatinine 5.2 to 4.0 to 4.2 to 4.9 urine output also less Nephrology on board Continue to monitor closely for now Use Lasix only if patient has respiratory distress Right pyelonephritis, complicated UTI Recent hospitalization urine culture grew multidrug-resistant Pseudomonas, sensitive to cefepime Did not complete full course of treatment and was transitioned on oral Omnicef Repeat urine and blood cultures are pending Empirically started on IV cefepime also empirically start pt on doxcycline due to elevated Procal and CXR concern for ? PNA - pt denies resp sx, may be 2/2 to volume overload 06/01/2021 Afebrile Urine culture: gram negative bacilli Blood culture: Negative so far Continue cefepime IV Recent fall Back pain Thoracic MRI: 1. No evidence for thoracic compression fracture or marrow edema. 2. Widening of the T9-T10 disc space level anteriorly which appears chronic in nature with no edematous changes present. There is disc/osteophyte complex present posteriorly at this level with mild central canal stenosis present. 3. There is no evidence for cord compression. 4. Evidence for old anterior wedge deformity of L1. Lumbar Spine xray:No focal osteopenia is seen to suggest osteomyelitis. No acute fracture. Extensive degenerative changes are seen. Sacral xray: No focal osteopenia is seen to suggest osteomyelitis. No acute fracture. Extensive degenerative changes are seen. 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 continue asa/statin pt follows with [facility] vascular for yearly follow up, next 02/23/22 HTN continue atenolol, bp stable HLD continue statin BPH rosas cath in place, placed by [facility] to monitor I/O, no urinary retention per pt on flomax Gout continue allopurinol, but renally dose Dvt ppx: Heparin subcu twice daily Position: Pending PT and OT evaluation Admission and Anticipated Discharge Date Admission Date: May 28, 2021 Subjective ff up for acute renal failure, UVJ stone, etc Seen resting in bed, sitting up, not in distress Comfortable States she feels fine today Had a good night sleep Abdominal/right flank pain resolved No fevers or chills, denies shortness of breath, chest pain, palpitations, dizziness No other symptom Review of Systems Review of Systems: all noted and negative except for above Physical Exam Physical Exam: General- oriented x 3, not in distress, speaks in sentences with no effort or accessory muscle use Eyes- anicteric Neck- no JVD Lungs- clear breath sounds, no crackles or wheezing auscultated bilaterally Heart- normal rate, regular rhythm; no murmurs Abdomen- normal bowel sounds, nondistended, soft, nontender Extremities-positive edema of bilateral upper and lower extremities No erythema/warmth/tenderness Neuro- alert, oriented x 3; no gross focal neurologic deficits Skin- warm & dry Results & Data Results & Data ([facility]) Vital Signs (Past 12 Hours) Vital Signs Temp Pulse Pulse Resp BP Pulse Ox 06/01/21 07:33 36.9 C 72 19 147/93 H 93 06/01/21 05:01 37.2 C 73 18 141/89 H 91 06/01/21 02:02 75 05/31/21 23:25 36.9 C 75 20 137/78 92 all noted and reviewed including below (1) Acute on chronic renal failure Acute renal failure type: unspecified Chronic kidney disease stage: unspecified stage Qualified Code(s): N17.9 - Acute kidney failure, unspecified; N18.9 - Chronic kidney disease, unspecified
[2021-06-01] MEDS: PANTOprazole 40 MG TAB PO SCH (21:45)
[2021-06-01] MEDS: CEFEPIME 1,000 MG in SYRINGE 0 ML IV SCH (21:52)
[2021-06-02 08:27] LABS: BUN Creatinine Ratio 26.2 (10-20); Calcium 7.4 mg/dl (8.5-10.1); Creatinine Clr Calc Pharmacy 14.7 ml/min; Est GFR (African American) 12.8 ml/min; Est GFR (Non-African American) 11.1 ml/min; Potassium 4.5 mmol/L (3.5-5.1)
[2021-06-02] MEDS: ADVANCED PROBIOTIC 1250 MG CAPSULE PO SCH (08:43)
[2021-06-02] MEDS: LORATADINE 10 MG TAB PO SCH (08:44)
[2021-06-02] MEDS: ASPIRIN 81 MG ECTAB PO SCH (08:44)
[2021-06-02] MEDS: allopurinoL 100 MG TAB PO SCH (08:44)
[2021-06-02] MEDS: MONTELUKAST SODIUM 10 MG TABLET PO SCH (08:44)
[2021-06-02] MEDS: ATORVASTATIN 20 MG TAB PO SCH (08:45)
[2021-06-02] MEDS: CYANOCOBALAMIN (B-12) 500 MCG TABLET PO SCH (08:45)
[2021-06-02] MEDS: MAGNESIUM OXIDE 400 MG TAB PO SCH ×2 (08:45→20:36)
[2021-06-02] MEDS: TAMSULOSIN HCL 0.4 MG CAP PO SCH (08:46)
[2021-06-02] MEDS: SERTRALINE HCL 50 MG TABLET PO SCH (08:46)
[2021-06-02] MEDS: ATENOLOL 50 MG TABLET PO SCH (08:46)
[2021-06-02] MEDS: FLUTICASONE PROPIONATE NA SPR 16 GM BTL SCH (08:47)
[2021-06-02] MEDS: PSYLLIUM 58.6% POWDER PACKET PO SCH (08:47)
[2021-06-02] MEDS: HEPARIN SOD 5,000 UNIT/0.5 ML VIAL SQ SCH ×2 (08:47→20:35)
[2021-06-02] MEDS: DOCUSATE SODIUM 100 MG CAP PO SCH ×2 (08:47→20:36)
--- NOTE | 2021-06-02 08:52 | Nephrology Progress Note ---
Date of Service June 02, 2021 Assessment & Plan Admission and Anticipated Discharge Date Admission Date: May 28, 2021 Subjective Assessment & Plan (1) Acute worsening of stage 3 chronic kidney disease: Plan: obstructive uropathy with recurrent ELIE.But also had Component of ATN and had Post ATN/Obstructive Diuresis. baseline creatinine one year ago was 1.3-1.5; after peak 2.4 during [facility] stay, improved to 1.7 by hospital d/c w/ normal K. in the space of 24 hrs, creat up -His renal functions slightly better- BUN worse creat better. made 3.5 liter urine without lasix so auto diuresing will not need it today No need for IV fluids as he still has e/o fluid overload. -Could still need dialysis but not today -renal diet to continue -no fluid limit for now -cont to hold losartan No lasix or iv fluid today (2) Anasarca associated with disorder of kidney: Plan: body wall and extremity edema and BL pleural effusions; hypoalbuminemia > may be from recent hospital stay/ IVF Given auto diuresis likely will improve (3) Complicated UTI (urinary tract infection): Plan: recurrent UTI w/ MDR pseudomonas, 2 types on last cx; f/u pending cxs -agree w/ cefepime >urine cx is NGTD; blood Culture ngtd. -infectious diseases consultation pending (4) Right ureteral calculus: Plan: stone disease is new for him (apart from distant hx in he stated resolved w/ allopurinol; given his urine pH on presentation though unlikely this current stone was uric acid > s/p 3/3 R ureteral stent with purulent drainage >high risk nephrolithiasis will need OP stone work up w/ nephrology (5) Angiomyolipoma of right kidney: Plan: stable x yrs but relatively large size noted (6) Bilateral renal masses: Plan: 7.7 cm R complex renal cyst in addition to AML (radiology viewer not available for me currently); 3 cm indeterminate L renal lesion > follows w/ Dr Gonzalez [facility] [place]; will need close in f/u Subjective Lot of urine. NO new issues. Resting on bed comfortable and pleasant. pedal edema which has been stable Review of Systems Review of Systems: All systems reviewed & are unremarkable except as noted in HPI & below Physical Exam Physical Exam: General- oriented x 3, not in distress, speaks in sentences with no effort or accessory muscle use Neck- supple, no JVD, no adenopathy, no thyromegaly Lungs-decreased breath sounds at the bases, no crackles or wheezing Heart- normal rate, regular rhythm; no murmur, no gallop, no rub appreciated Abdomen- normal bowel sounds, nondistended, soft, nontender, no masses or hepatosplenomegaly Extremities-positive generalized edema of the arms and legs, better No erythema/tenderness/warmth on the lower legs Neuro- alert, oriented x 3 Results & Data ([facility]) Vital Signs (Past 12 Hours) Vital Signs Temp Pulse Pulse Resp BP Pulse Ox 06/02/21 08:14 36.6 C 68 19 122/73 93 06/02/21 07:19 62 06/02/21 04:41 36.8 C 65 18 137/70 93 06/01/21 23:20 37.1 C 70 20 128/68 92 06/01/21 22:16 70
--- NOTE | 2021-06-02 13:52 | Hospitalist Progress Note ---
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 Recent hospitalization [facility] [place] 05/06-05/08 for left ureteral stent exchange. Rehospitalized [facility] 05/22-05/26 secondary to fall, weakness, acute on chronic CKD, complicated UTI, rhabdomyolysis. Sent to [facility] for rehab. Sepsis in setting of right ureteral stone and UTI causing miguel angel and SOFA score of 4 treated with Cysto, IV Cefepime Acute on CKD 3 Right ureteral calculus Moderate hydronephrosis of right kidney Marked left renal atrophy with chronic left ureteral stent in place secondary to stricture in setting of partial nephrectomy due to history of renal oncocytoma Anasarca Baseline creatinine 1.6-1.7 BUN/creatinine 76 [address] 5[address] a/p:7 mm right ureteropelvic ejection calculus results in moderate right hydronephrosis with perinephric stranding. 05/28/2021: Status post right ureteral stent placement Creatinine improved initially, but increasing again 5.2 to 4.0 to 4.2 to 4.6 has good urine output Nephrology on board Continue to monitor closely for now Use Lasix only if patient has respiratory distress Right pyelonephritis, complicated UTI Recent hospitalization urine culture grew multidrug-resistant Pseudomonas, sensitive to cefepime Did not complete full course of treatment and was transitioned on oral Omnicef Repeat urine and blood cultures are pending Empirically started on IV cefepime also empirically start pt on doxcycline due to elevated Procal and CXR concern for ? PNA - pt denies resp sx, may be 2/2 to volume overload 06/02/2021 Afebrile Urine culture: gram negative bacilli Blood culture: Negative so far Continue cefepime IV Recent fall Back pain Thoracic MRI: 1. No evidence for thoracic compression fracture or marrow edema. 2. Widening of the T9-T10 disc space level anteriorly which appears chronic in nature with no edematous changes present. There is disc/osteophyte complex present posteriorly at this level with mild central canal stenosis present. 3. There is no evidence for cord compression. 4. Evidence for old anterior wedge deformity of L1. Lumbar Spine xray:No focal osteopenia is seen to suggest osteomyelitis. No acute fracture. Extensive degenerative changes are seen. Sacral xray: No focal osteopenia is seen to suggest osteomyelitis. No acute fracture. Extensive degenerative changes are seen. 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 continue asa/statin pt follows with [facility] for yearly follow up, next 02/23/22 HTN continue atenolol, bp stable HLD continue statin BPH rosas cath in place, placed by [facility] to monitor I/O, no urinary retention per pt on flomax Gout continue allopurinol, but renally dose Dvt ppx: Heparin subcu twice daily Position: Pending PT and OT evaluation lives at home by himself Admission and Anticipated Discharge Date Admission Date: May 28, 2021 Subjective ff up for acute renal failure on CKD, etc seen resting in bed, comfortable states he feels ok overall no dyspnea, chest pain no fever/chills, back pain, nausea no other symptoms Review of Systems Review of Systems: all noted and negative except for above Physical Exam Physical Exam: General- oriented x 3, not in distress, speaks in sentences with no effort or accessory muscle use Eyes- anicteric Neck- no JVD Lungs- clear BS BL Heart- normal rate, regular rhythm; no murmurs Abdomen- normal bowel sounds, nondistended, soft, nontender Extremities- mild edema of extremities, no calf tenderness Neuro- alert, oriented x 3; no gross focal neurologic deficits Skin- warm & dry Results & Data Results & Data ([facility]) Vital Signs (Past 12 Hours) Vital Signs Temp Pulse Pulse Resp BP BP Pulse Ox 06/02/21 11:06 36.6 C 67 19 113/60 94 06/02/21 08:14 36.6 C 68 19 122/73 93 06/02/21 07:19 62 06/02/21 04:41 36.8 C 65 18 137/70 93 all noted and reviewed including below (1) Acute on chronic renal failure Acute renal failure type: unspecified Chronic kidney disease stage: unspecified stage Qualified Code(s): N17.9 - Acute kidney failure, unspecified; N18.9 - Chronic kidney disease, unspecified
[2021-06-02] MEDS: PANTOprazole 40 MG TAB PO SCH (20:36)
[2021-06-02] MEDS: CEFEPIME 1,000 MG in SYRINGE 0 ML IV SCH (20:36)
[2021-06-03] MEDS: FLUTICASONE PROPIONATE NA SPR 16 GM BTL SCH (08:15)
[2021-06-03] MEDS: MAGNESIUM OXIDE 400 MG TAB PO SCH ×2 (08:15→20:48)
[2021-06-03] MEDS: ATORVASTATIN 20 MG TAB PO SCH (08:15)
[2021-06-03] MEDS: CYANOCOBALAMIN (B-12) 500 MCG TABLET PO SCH (08:15)
[2021-06-03] MEDS: allopurinoL 100 MG TAB PO SCH (08:15)
[2021-06-03] MEDS: HEPARIN SOD 5,000 UNIT/0.5 ML VIAL SQ SCH ×2 (08:15→20:48)
[2021-06-03] MEDS: PSYLLIUM 58.6% POWDER PACKET PO SCH (08:16)
[2021-06-03] MEDS: SERTRALINE HCL 50 MG TABLET PO SCH (08:16)
[2021-06-03] MEDS: TAMSULOSIN HCL 0.4 MG CAP PO SCH (08:16)
[2021-06-03] MEDS: ATENOLOL 50 MG TABLET PO SCH (08:16)
[2021-06-03] MEDS: ASPIRIN 81 MG ECTAB PO SCH (08:16)
[2021-06-03] MEDS: MONTELUKAST SODIUM 10 MG TABLET PO SCH (08:16)
[2021-06-03] MEDS: LORATADINE 10 MG TAB PO SCH (08:16)
[2021-06-03] MEDS: ADVANCED PROBIOTIC 1250 MG CAPSULE PO SCH (08:16)
[2021-06-03] MEDS: DOCUSATE SODIUM 100 MG CAP PO SCH ×2 (08:22→20:48)
[2021-06-03 08:23] LABS: BUN Creatinine Ratio 35.1 (10-20); Calcium 7.5 mg/dl (8.5-10.1); Creatinine Clr Calc Pharmacy 20.2 ml/min; Est GFR (Non-African American) 16.4 ml/min; Potassium 4.2 mmol/L (3.5-5.1)
--- NOTE | 2021-06-03 09:55 | Nephrology Progress Note ---
Date of Service June 03, 2021 Assessment & Plan Admission and Anticipated Discharge Date Admission Date: May 28, 2021 Subjective Subjective Assessment & Plan (1) Acute worsening of stage 3 chronic kidney disease: Plan: obstructive uropathy with recurrent ELIE.But also had Component of ATN and had Post ATN/Obstructive Diuresis. baseline creatinine one year ago was 1.3-1.5; after peak 2.4 during [facility] stay, improved to 1.7 by hospital d/c w/ normal K. in the space of 24 hrs, creat up -His renal functions slightly better- BUN worse creat better. made 4.7 liter urine without lasix so auto diuresing will not need lasix today More hopeful that he will not need dialysis -renal diet to continue -no fluid limit for now -cont to hold losartan No lasix or iv fluid today (2) Anasarca associated with disorder of kidney: Plan: body wall and extremity edema and BL pleural effusions; hypoalbuminemia > may be from recent hospital stay/ IVF Given auto diuresis likely will improve (3) Complicated UTI (urinary tract infection): Plan: recurrent UTI w/ MDR pseudomonas, 2 types on last cx; f/u pending cxs -agree w/ cefepime (4) Right ureteral calculus: Plan: stone disease is new for him (apart from distant hx in he stated resolved w/ allopurinol; given his urine pH on presentation though unlikely this current stone was uric acid > s/p 3/3 R ureteral stent with purulent drainage >high risk nephrolithiasis will need OP stone work up w/ nephrology (5) Angiomyolipoma of right kidney: Plan: stable x yrs but relatively large size noted (6) Bilateral renal masses: Plan: 7.7 cm R complex renal cyst in addition to AML (radiology viewer not available for me currently); 3 cm indeterminate L renal lesion > follows w/ Dr Gonzalez [facility] [place] will need close in f/u Subjective Lot of urine. NO new issues. Resting on bed comfortable and pleasant. pedal edema which has been stable Review of Systems Review of Systems: All systems reviewed & are unremarkable except as noted in HPI & below Physical Exam Physical Exam: General- oriented x 3, not in distress, speaks in sentences with no effort or accessory muscle use Neck- supple, no JVD, no adenopathy, no thyromegaly Lungs-decreased breath sounds at the bases, no crackles or wheezing Heart- normal rate, regular rhythm; no murmur, no gallop, no rub appreciated Abdomen- normal bowel sounds, nondistended, soft, nontender, no masses or hepatosplenomegaly Extremities-positive generalized edema of the arms and legs, better No erythema/tenderness/warmth on the lower legs Neuro- alert, oriented x 3 Results & Data ([facility]) Vital Signs (Past 12 Hours) Vital Signs Temp Pulse Pulse Resp BP BP Pulse Ox 06/03/21 08:58 66 06/03/21 07:29 36.7 C 69 18 128/71 94 06/03/21 03:17 36.8 C 66 18 118/70 93 06/03/21 00:24 65 06/02/21 22:55 37.1 C 70 18 114/66 93
--- NOTE | 2021-06-03 14:15 | Hospitalist Progress Note ---
Date of Service June 03, 2021 Assessment & Plan (1) Acute on chronic renal failure: (2) Ureteral stone with hydronephrosis: Plan: Patient is an 80 yr male with H/O Left renal oncocytoma S/P left partial nephrectomy with residual chronic left ureteral stricture requiring chronic left ureteral stent, HTN, HLD, gout, common and internal iliac aneurysm, BPH, history of complicated UTI, depression who presents to ED from [facility] rehab due to abnormal labs. Recent hospitalization [facility] [place] 05/06-05/08 for left ureteral stent exchange. Rehospitalized [facility] 05/22-05/26 secondary to fall, weakness, acute on chronic CKD, complicated UTI, rhabdomyolysis. Sepsis Obstructive uropathy secondary to right ureteral stone Acute Kidney Injury on CKD III Moderate hydronephrosis of right kidney Marked left renal atrophy with chronic left ureteral stent in place secondary to stricture in setting of partial nephrectomy due to history of renal oncocytoma Anasarca Baseline creatinine 1.6-1.7 CT ABD:7 mm right ureteropelvic ejection calculus results in moderate right hydronephrosis with perinephric stranding. S/P Right ureteral stent placement on 05/28/2021 Cr:5.46>4.9>3.33 Appreciate Nephrology/Urology help Diuresing well Avoid nephrotoxic agents as able Monitor renal function Right pyelonephritis, complicated UTI Recent hospitalization urine culture grew multidrug-resistant Pseudomonas, sensitive to cefepime Did not complete full course of treatment and was transitioned on oral Omnicef Repeat urine Cx: pending Blood cultures: No growth Continue IV cefepime Recent fall Back pain --Thoracic MRI:. No evidence for thoracic compression fracture or marrow edema. Widening of the T9-T10 disc space level anteriorly which appears chronic in nature with no edematous changes present. There is disc/osteophyte complex p resent posteriorly at this level with mild central canal stenosis present. There is no evidence for cord compression. Evidence for old anterior wedge deformity of L1. --Lumbar Spine x ray:No focal osteopenia is seen to suggest osteomyelitis. No acute fracture. Extensive degenerative changes are seen. --Sacral x ray: No focal osteopenia is seen to suggest osteomyelitis. No acute fracture. Extensive degenerative changes are seen. 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 continue asa/statin Follows with [facility] yearly follow up, next 02/23/22 HTN continue atenolol HLD continue statin BPH rosas cath in place, placed by [facility] to monitor I/O on Flomax Gout continue allopurinol--renally adjusted DVT Px: Heparin SQ Admission and Anticipated Discharge Date Admission Date: May 28, 2021 Subjective Patient is seen and examined at bedside Diuresing well Discussed with nephrology Renal function slowly improving Denies any chest pain, shortness of breath, dizziness, nausea, abdominal pain Offers no other complaints Review of Systems Review of Systems: All systems reviewed & are unremarkable except as noted in Subjective Physical Exam Physical Exam: Physical Exam: Vitals signs as noted above General Appearance:Morbidly Obese, no apparent distress, Chronic ill appearing Head: normocephalic, Atraumatic Eyes: normal inspection, EOMI Neck: supple, Trachea midline Respiratory/Chest: Normal breath sounds, CTA, No accessory muscle use Cardiovascular: S1, S2, No murmur Abdomen/GI:Soft, Non tender, Bowel sounds present Extremities/Musculoskeletal:normal inspection, B/L LE edema 2+ Neurologic/Psych:AAOX3, grossly no focal neurological deficits Skin: normal color, warm Results & Data Results & Data ([facility]) Vital Signs (Past 12 Hours) Vital Signs Temp Pulse Pulse Resp BP BP Pulse Ox 06/03/21 10:44 36.7 C 75 18 116/70 93 06/03/21 08:58 66 06/03/21 07:29 36.7 C 69 18 128/71 94 06/03/21 03:17 36.8 C 66 18 118/70 93 Laboratory Results [facility] 06/03/21 07:33 Sodium 140 Potassium 4.2 Chloride 111 H Carbon Dioxide 23 BUN 117 H Creatinine 3.33 H D Glucose 102 H Calcium 7.5 L (1) Acute on chronic renal failure Acute renal failure type: unspecified Chronic kidney disease stage: unspecified stage Qualified Code(s): N17.9 - Acute kidney failure, unspecified; N18.9 - Chronic kidney disease, unspecified
[2021-06-03] MEDS: PANTOprazole 40 MG TAB PO SCH (20:48)
[2021-06-03] MEDS: CEFEPIME 1,000 MG in SYRINGE 0 ML IV SCH (20:52)
[2021-06-04 07:52] LABS: Hematocrit (blood only) 31.2 % (42-52); Hemoglobin 9.9 g/dL (14.0-18.0); Mean Corpuscular Hemoglobin 31.1 pg (25-34); Mean Corpuscular Hgb Conc 31.7 g/dL (32-36); Mean Corpuscular Volume 98.1 fL (80-100); Mean Platelet Volume 9.3 fL (7.4-10.4); Platelet Count 353 K/uL (130-400); RDW Coefficient of Variation 15.6 % (11.5-14.5); RDW Standard Deviation 56.2 fL (36.4-46.3); Red Blood Count 3.18 M/uL (4.7-6.1); White Blood Count 7.58 K/uL (4.8-10.8)
[2021-06-04] MEDS: ASPIRIN 81 MG ECTAB PO SCH (08:31)
[2021-06-04 08:32] LABS: BUN Creatinine Ratio 44.2 (10-20); Calcium 7.6 mg/dl (8.5-10.1); Creatinine Clr Calc Pharmacy 26.2 ml/min; Est GFR (Non-African American) 23.3 ml/min; Potassium 4.1 mmol/L (3.5-5.1)
[2021-06-04] MEDS: SERTRALINE HCL 50 MG TABLET PO SCH (08:32)
[2021-06-04] MEDS: allopurinoL 100 MG TAB PO SCH (08:32)
[2021-06-04] MEDS: CYANOCOBALAMIN (B-12) 500 MCG TABLET PO SCH (08:32)
[2021-06-04] MEDS: MONTELUKAST SODIUM 10 MG TABLET PO SCH (08:32)
[2021-06-04] MEDS: TAMSULOSIN HCL 0.4 MG CAP PO SCH (08:33)
[2021-06-04] MEDS: LORATADINE 10 MG TAB PO SCH (08:33)
[2021-06-04] MEDS: ATENOLOL 50 MG TABLET PO SCH (08:33)
[2021-06-04] MEDS: MAGNESIUM OXIDE 400 MG TAB PO SCH ×2 (08:33→20:40)
[2021-06-04] MEDS: DOCUSATE SODIUM 100 MG CAP PO SCH ×2 (08:34→20:40)
[2021-06-04] MEDS: ADVANCED PROBIOTIC 1250 MG CAPSULE PO SCH (08:34)
[2021-06-04] MEDS: ATORVASTATIN 20 MG TAB PO SCH (08:34)
[2021-06-04] MEDS: FLUTICASONE PROPIONATE NA SPR 16 GM BTL SCH (08:34)
[2021-06-04] MEDS: HEPARIN SOD 5,000 UNIT/0.5 ML VIAL SQ SCH ×2 (08:35→20:39)
[2021-06-04] MEDS: PSYLLIUM 58.6% POWDER PACKET PO SCH (08:35)
--- NOTE | 2021-06-04 09:08 | Nephrology Progress Note ---
Date of Service June 04, 2021 Assessment & Plan Admission and Anticipated Discharge Date Admission Date: May 28, 2021 Subjective Subjective Assessment & Plan (1) Acute worsening of stage 3 chronic kidney disease: Plan: obstructive uropathy with recurrent ELIE.But also had Component of ATN and had Post ATN/Obstructive Diuresis. baseline creatinine one year ago was 1.3-1.5; after peak 2.4 during [facility] stay, improved to 1.7 by hospital d/c w/ normal K. in the space of 24 hrs, creat up -His renal functions better- BUN and creat better. made 4.6 liter urine without lasix so auto diuresing will not need lasix today He will not need dialysis -renal diet to continue -no fluid limit for now -cont to hold losartan No lasix or iv fluid today (2) Anasarca associated with disorder of kidney: Plan: body wall and extremity edema and BL pleural effusions; hypoalbuminemia > may be from recent hospital stay/ IVF Given auto diuresis likely will improve and has improved a lot making 4.6 liters urine daily (3) Complicated UTI (urinary tract infection): Plan: recurrent UTI w/ MDR pseudomonas, 2 types on last cx; f/u pending cxs -agree w/ cefepime (4) Right ureteral calculus: Plan: stone disease is new for him (apart from distant hx in he stated resolved w/ allopurinol; given his urine pH on presentation though unlikely this current stone was uric acid > s/p 3/3 R ureteral stent with purulent drainage >high risk nephrolithiasis will need OP stone work up w/ nephrology (5) Angiomyolipoma of right kidney: Plan: stable x yrs but relatively large size noted (6) Bilateral renal masses: Plan: 7.7 cm R complex renal cyst in addition to AML (radiology viewer not available for me currently); 3 cm indeterminate L renal lesion > follows w/ Dr Gonzalez [facility] [place]; will need close in f/u Subjective Lot of urine. No new issues. Resting on bed comfortable and pleasant. pedal edema which has improved a lot Review of Systems Review of Systems: All systems reviewed & are unremarkable except as noted in HPI & below Physical Exam Physical Exam: General- oriented x 3, not in distress, speaks in sentences with no effort or accessory muscle use Neck- supple, no JVD, no adenopathy, no thyromegaly Lungs-decreased breath sounds at the bases, no crackles or wheezing Heart- normal rate, regular rhythm; no murmur, no gallop, no rub appreciated Abdomen- normal bowel sounds, nondistended, soft, nontender, no masses or hepatosplenomegaly Extremities-less edema now No erythema/tenderness/warmth on the lower legs Neuro- alert, oriented x 3 Results & Data ([facility]) Vital Signs (Past 12 Hours) Vital Signs Temp Pulse Pulse Resp BP BP Pulse Ox 06/04/21 08:54 68 06/04/21 07:00 36.8 C 65 20 120/73 93 06/04/21 04:55 36.7 C 67 20 121/74 93 06/04/21 01:39 76 06/03/21 23:09 36.6 C 79 20 120/76 90
--- NOTE | 2021-06-04 16:36 | Hospitalist Progress Note ---
Date of Service June 04, 2021 Assessment & Plan (1) Acute on chronic renal failure: (2) Ureteral stone with hydronephrosis: Plan: Patient is an 80 yr male with H/O Left renal oncocytoma S/P left partial nephrectomy with residual chronic left ureteral stricture requiring chronic left ureteral stent, HTN, HLD, gout, common and internal iliac aneurysm, BPH, history of complicated UTI, depression who presents to ED from [facility] rehab due to abnormal labs. Recent hospitalization [facility] [place]05[place]08 for left ureteral stent exchange. Rehospitalized [facility] 05/22-05/26 secondary to fall, weakness, acute on chronic CKD, complicated UTI, rhabdomyolysis. Sepsis Obstructive uropathy secondary to right ureteral stone Acute Kidney Injury on CKD III Moderate hydronephrosis of right kidney Marked left renal atrophy with chronic left ureteral stent in place secondary to stricture in setting of partial nephrectomy due to history of renal oncocytoma Anasarca Baseline creatinine 1.6-1.7 CT ABD:7 mm right ureteropelvic ejection calculus results in moderate right hydronephrosis with perinephric stranding. S/P Right ureteral stent placement on 05/28/2021 Cr:5.46>4.9>3.33>2.49 Appreciate Nephrology/Urology help Diuresing well Avoid nephrotoxic agents as able Monitor renal function Continue current management Patient requesting to get lithotripsy done while hospitalized. Will contact urology Right pyelonephritis, complicated UTI Recent hospitalization urine culture grew multidrug-resistant Pseudomonas, sensitive to cefepime Did not complete full course of treatment and was transitioned on oral Omnicef Repeat urine Cx: pending Blood cultures: No growth Continue IV cefepime Recent fall Back pain --Thoracic MRI:. No evidence for thoracic compression fracture or marrow edema. Widening of the T9-T10 disc space level anteriorly which appears chronic in nature with no edematous changes present. There is disc/osteophyte complex present posteriorly at this level with mild central canal stenosis present. There is no evidence for cord compression. Evidence for old anterior wedge deformity of L1. --Lumbar Spine x ray:No focal osteopenia is seen to suggest osteomyelitis. No acute fracture. Extensive degenerative changes are seen. --Sacral x ray: No focal osteopenia is seen to suggest osteomyelitis. No acute fracture. Extensive degenerative changes are seen. 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 continue asa/statin [facility], next 02/23/22 HTN continue atenolol HLD continue statin BPH rosas cath in place, placed by [facility] to monitor I/O on Flomax Gout continue allopurinol--renally adjusted DVT Px: Heparin SQ Admission and Anticipated Discharge Date Admission Date: May 28, 2021 Subjective Patient is seen and examined at bedside No new complaints Leg swelling slowly improving Renal function continues to improvie Denies any chest pain, shortness of breath, dizziness, nausea, abdominal pain Offers no other complaints Review of Systems Review of Systems: All systems reviewed & are unremarkable except as noted in Subjective Physical Exam Physical Exam: Physical Exam: Vitals signs as noted above General Appearance:Morbidly Obese, no apparent distress, Chronic ill appearing Head: normocephalic, Atraumatic Eyes: normal inspection, EOMI Neck: supple, Trachea midline Respiratory/Chest: Normal breath sounds, CTA, No accessory muscle use Cardiovascular: S1, S2, No murmur Abdomen/GI:Soft, Non tender, Bowel sounds present Extremities/Musculoskeletal:normal inspection, B/L LE edema 2+ Neurologic/Psych:AAOX3, grossly no focal neurological deficits Skin: normal color, warm Results & Data Results & Data ([facility]) Vital Signs (Past 12 Hours) Vital Signs Temp Pulse Pulse Resp BP BP Pulse Ox 06/04/21 15:00 36.7 C 69 20 117/71 93 06/04/21 11:00 37.0 C 74 20 95/60 L 90 06/04/21 08:54 68 06/04/21 07:00 36.8 C 65 20 120/73 93 06/04/21 04:55 36.7 C 67 20 121/74 93 Laboratory Results Short CBC 06/04/21 Range/Units 07:06 WBC 7.58 (4.8-10.8) K/uL Hgb 9.9 L (14.0-18.0) g/dL Hct 31.2 L (42-52) % Plt Count 353 (130-400) K/uL BMP 06/04/21 07:06 Sodium 140 Potassium 4.1 Chloride 111 H Carbon Dioxide 21 BUN 110 H Creatinine 2.49 H D Glucose 104 H Calcium 7.6 L (1) Acute on chronic renal failure Acute renal failure type: unspecified Chronic kidney disease stage: unspecified stage Qualified Code(s): N17.9 - Acute kidney failure, unspecified; N18.9 - Chronic kidney disease, unspecified
[2021-06-04] MEDS: PANTOprazole 40 MG TAB PO SCH (20:40)
[2021-06-04] MEDS: CEFEPIME 1,000 MG in SYRINGE 0 ML IV SCH (22:10)
[2021-06-05 07:19] LABS: Calcium 7.7 mg/dl (8.5-10.1); Creatinine Clr Calc Pharmacy 31.1 ml/min; Est GFR (African American) 33.2 ml/min; Est GFR (Non-African American) 28.7 ml/min
[2021-06-05] MEDS: ADVANCED PROBIOTIC 1250 MG CAPSULE PO SCH (08:01)
[2021-06-05] MEDS: TAMSULOSIN HCL 0.4 MG CAP PO SCH (08:01)
[2021-06-05] MEDS: HEPARIN SOD 5,000 UNIT/0.5 ML VIAL SQ SCH (08:01)
[2021-06-05] MEDS: CYANOCOBALAMIN (B-12) 500 MCG TABLET PO SCH (08:01)
[2021-06-05] MEDS: LORATADINE 10 MG TAB PO SCH (08:01)
[2021-06-05] MEDS: MONTELUKAST SODIUM 10 MG TABLET PO SCH (08:01)
[2021-06-05] MEDS: ATENOLOL 50 MG TABLET PO SCH (08:01)
[2021-06-05] MEDS: ASPIRIN 81 MG ECTAB PO SCH (08:01)
[2021-06-05] MEDS: ATORVASTATIN 20 MG TAB PO SCH (08:01)
[2021-06-05] MEDS: allopurinoL 100 MG TAB PO SCH (08:01)
[2021-06-05] MEDS: MAGNESIUM OXIDE 400 MG TAB PO SCH (08:01)
[2021-06-05] MEDS: PSYLLIUM 58.6% POWDER PACKET PO SCH (08:02)
[2021-06-05] MEDS: FLUTICASONE PROPIONATE NA SPR 16 GM BTL SCH (08:02)
[2021-06-05] MEDS: DOCUSATE SODIUM 100 MG CAP PO SCH (08:02)
[2021-06-05] MEDS: SERTRALINE HCL 50 MG TABLET PO SCH (08:02)
--- NOTE | 2021-06-05 09:04 | Nephrology Progress Note ---
Date of Service June 05, 2021 Assessment & Plan Admission and Anticipated Discharge Date Admission Date: May 28, 2021 Subjective Assessment & Plan (1) Acute worsening of stage 3 chronic kidney disease: Plan: obstructive uropathy with recurrent ELIE.But also had Component of ATN and had Post ATN/Obstructive Diuresis. baseline creatinine about mid 1's -His renal functions better- BUN and creat better and having auto diuresis. So will not need lasix -renal diet to continue -no fluid limit for now -cont to hold losartan --Continue same today. Stable from renal Standpoint but he still has not got out of bed. Keep rosas for another 1-2 days. (2) Anasarca associated with disorder of kidney: Plan: body wall and extremity edema and BL pleural effusions; hypoalbuminemia > may be from recent hospital stay/ IVF Given auto diuresis has improved a lot making 4.6 liters urine daily (3) Complicated UTI (urinary tract infection): Plan: recurrent UTI w/ MDR pseudomonas, 2 types on last cx; f/u pending cxs -agree w/ cefepime (4) Right ureteral calculus: Plan: stone disease is new for him (apart from distant hx in he stated resolved w/ allopurinol; given his urine pH on presentation though unlikely this current stone was uric acid > s/p 3/3 R ureteral stent with purulent drainage >high risk nephrolithiasis will need OP stone work up w/ nephrology (5) Angiomyolipoma of right kidney: (6) Bilateral renal masses: Plan: 7.7 cm R complex renal cyst in addition to AML --follows [place]/ [place] Gonzalez [facility] [place] Lot of urine. No new issues. Resting on bed comfortable and pleasant. pedal edema has improved a lot Review of Systems Review of Systems: All systems reviewed & are unremarkable except as noted in HPI & below Physical Exam Physical Exam: General- oriented x 3, not in distress, speaks in sentences with no effort or accessory muscle use Neck- supple, no JVD, no adenopathy, no thyromegaly Lungs-decreased breath sounds at the bases, no crackles or wheezing Heart- normal rate, regular rhythm; no murmur, no gallop, no rub appreciated Abdomen- normal bowel sounds, nondistended, soft, nontender, no masses or hepatosplenomegaly Extremities-less edema now Neuro- alert, oriented x 3 Results & Data ([facility]) Vital Signs (Past 12 Hours) Vital Signs Temp Pulse Pulse Resp BP BP Pulse Ox 06/05/21 07:51 36.9 C 64 19 127/72 93 06/05/21 05:34 67 06/05/21 02:55 36.9 C 64 18 107/67 93 06/04/21 23:02 36.8 C 68 20 107/63 94
--- NOTE | 2021-06-05 12:15 | Hospitalist Progress Note ---
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 Rehospitalized [facility] 05/22-05/26 secondary to fall, weakness, acute on chronic CKD, complicated UTI, rhabdomyolysis. Sepsis Obstructive uropathy secondary to right ureteral stone Acute Kidney Injury on CKD III Moderate hydronephrosis of right kidney Marked left renal atrophy with chronic left ureteral stent in place secondary to stricture in setting of partial nephrectomy due to history of renal oncocytoma Anasarca Baseline creatinine 1.6-1.7 CT ABD:7 mm right ureteropelvic ejection calculus results in moderate right hydronephrosis with perinephric stranding. S/P Right ureteral stent placement on 05/28/2021 Cr:5.46>4.9>3.33>2.49>2.1 Appreciate Nephrology/Urology help Diuresing well Avoid nephrotoxic agents as able Monitor renal function Plan to discontinue Losartan for now Needs follow-up with urology and nephrology upon discharge Right pyelonephritis, complicated UTI Recent hospitalization urine culture grew multidrug-resistant Pseudomonas, sensitive to cefepime Did not complete full course of treatment and was transitioned on oral Omnicef Repeat urine Cx: pending Blood cultures: No growth Continue IV cefepime for 5 more days to complete 2 week course Recent fall Back pain --Thoracic MRI:. No evidence for thoracic compression fracture or marrow edema. Widening of the T9-T10 disc space level anteriorly which appears chronic in nature with no edematous changes present. There is disc/osteophyte complex present posteriorly at this level with mild central canal stenosis present. There is no evidence for cord compression. Evidence for old anterior wedge deformity of L1. --Lumbar Spine x ray:No focal osteopenia is seen to suggest osteomyelitis. No acute fracture. Extensive degenerative changes are seen. --Sacral x ray: No focal osteopenia is seen to suggest osteomyelitis. No acute fracture. Extensive degenerative changes are seen. 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 continue asa/statin Follows with [facility] vascular yearly follow up, next 02/23/22 HTN continue atenolol HLD continue statin BPH rosas cath in place, placed by [facility] to monitor I/O on Flomax Gout continue allopurinol--renally adjusted DVT Px: Heparin SQ Disposition Rehab Admission and Anticipated Discharge Date Admission Date: May 28, 2021 Subjective Patient is seen and examined at bedside Diuresing well Discussed with Nephrology today Denies any chest pain, shortness of breath, dizziness, nausea, abdominal pain Offers no other complaints Plan to discharge to Rehab facility today Review of Systems Review of Systems: All systems reviewed & are unremarkable except as noted in Subjective Physical Exam Physical Exam: Physical Exam: Vitals signs as noted above General Appearance:Morbidly Obese, no apparent distress, Chronic ill appearing Head: normocephalic, Atraumatic Eyes: normal inspection, EOMI Neck: supple, Trachea midline Respiratory/Chest: Normal breath sounds, CTA, No accessory muscle use Cardiovascular: S1, S2, No murmur Abdomen/GI:Soft, Non tender, Bowel sounds present Extremities/Musculoskeletal:normal inspection, B/L LE edema 2+ Neurologic/Psych:AAOX3, grossly no focal neurological deficits Skin: normal color, warm Results & Data Results & Data ([facility]) Vital Signs (Past 12 Hours) Vital Signs Temp Pulse Pulse Resp BP BP Pulse Ox 06/05/21 11:19 36.8 C 74 20 115/73 93 06/05/21 07:51 36.9 C 64 19 127/72 93 06/05/21 05:34 67 06/05/21 02:55 36.9 C 64 18 107/67 93 Laboratory Results BMP 06/05/21 06:15 Sodium 140 Potassium 4.0 Chloride 111 H Carbon Dioxide 22 BUN 103 H Creatinine 2.10 H D Glucose 104 H Calcium 7.7 L
--- NOTE | 2021-06-05 12:47 | Discharge Summary ---
Date of Service June 05, 2021 Admission HPI Per Admitting Provider This is a 80-year-old male who has a significant past medical history of left renal oncocytoma status post left partial nephrectomy with residual chronic left ureteral stricture requiring chronic left ureteral stent, HTN, HLD, gout, common and internal iliac aneurysm, BPH, history of complicated UTI, depression who presents to ED from [facility] rehab due to abnormal labs. Of significance patient was recently hospitalized at [facility] on 05/06-05/08 for left ureteral stent exchange. He was then discharged to home and was subsequently admitted to [facility] on 05/22 after he fell at home and could not get up. He was found to have a mild ELIE, rhabdomyolysis and urinary tract infection. He continued to have back pain and weakness and was a candidate for acute rehab. He was initially started on IV cefepime, given IV fluids and transferred to rehab on oral cefdinir. His urine culture grew multidrug- resistant Pseudomonas only sensitive to IV cefepime. While at [facility] rehab he was doing well participating in therapy. Unfortunately patient continued to have a rise in his creatinine. On 05/27 a Rosas catheter was placed and he was started on 1 L of IV fluid. His creatinine continue to rise and was 5.3 today with an elevated potassium of 5.7. Patient complains of back pain that is nonradiating. This has been present since his fall. He feels it has been improving while at rehab and he has been having improvements in ambulating. He also complains of diffuse swelling of arms and legs which is much worse than baseline. He generally feels weak. He admits to having intermittent fevers while at [facility] with a high of 100. He denies any chills or sweats. He denies any lightheadedness dizziness, chest pain, shortness of breath, hemoptysis, cough, nausea, vomiting, abdominal pain. In ED patient remained hemodynamically stable. His lab work was significant for an ELIE with an elevation of BUN/creatinine to 76 and 5.46. He had mild hypomagnesemia 1.4. His potassium was 5.0. His VBG was WNL. He did have a mild elevation in leukocytosis at 14.20. His H&H was 10.0 and 31.2. Urinalysis consistent with infection and had elevated procalcitonin of 0.78.CT abdomen pelvis reveal 7 mm right ureteropelvic ejection calculus resulting in moderate right hydronephrosis and perinephritic stranding. There is evidence for volume overload and body wall edema. He was empirically started on IV cefepime. Urology was consulted emergently who was planning to take patient to the OR for stenting of right ureter. Admission Exam Per Admitting Provider Physical Exam Physical Exam: Constitutional: WD/WN, elderly, male, obese, vitals as above, NAD, sitting up in bed, pleasant, conversing easily Head: Normocephalic, Atraumatic Eyes: PERRL, conjunctivae normal, anicteric sclerae ENMT: external ear and nose normal, oropharynx normal Neck: trachea midline, no thyromegaly normal visual inspection Respiratory: Increased respiratory effort, poor inspiration due to poor visibility, lungs clear to auscultation, no wheeze, rales, rhonchi. Normal insp /exp effort, no accessory muscle use Cardiovascular: RRR, no murmur, diffuse anasarca of upper extremities and lower extremities Vessels: no JVD or carotid bruit Chest: normal inspection of chest Abdomen: normal bowel sounds, soft, nontender, no hepatosplenomegaly Musculoskeletal: no cyanosis or clubbing, active range of motion x4 Skin: no rashes, warm and dry normal turgor Neurologic: PERRL, EOMI, accommodation nl, no face palsy, no dysarthria CN's II-XI intact bilaterally and moves all extremities Psychiatric: A+Ox3, euthymic affect : Rosas catheter with yellow urine Principal Diagnosis Sepsis Obstructive uropathy secondary to right ureteral stone Acute Kidney Injury on CKD III Moderate hydronephrosis of right kidney Right pyelonephritis, complicated UTI Discharge Data Allergies Allergy/AdvReac Type Severity Reaction Status Date / Time Iodinated Contrast Media Allergy Severe HIVES, Verified 05/29/21 17:38 TACHYCARDIA bretylium Allergy Unknown Verified 05/28/21 11:40 pollen extracts Allergy Unknown Verified 05/28/21 11:40 oxycodone AdvReac Mild CONFUSION,"FEELS Verified 05/02/09 02:33 LIKE I'M DRUNK" Consultations 05/28/21 14:23 Consult Anesthesiology Routine 05/28/21 14:24 Consult Nephrology Routine Consult Urology Routine 05/28/21 14:50 ED Decision to Admit Stat 05/28/21 17:59 Consult Infectious Diseases Routine Consult Orthopedic Surgery Routine Procedures Performed Operation Date: 05/28/21 14:15 Actual Procedures p Cystoscopy, Retrograde Pyelogram, Right Ureteral Stent Placement(Right) - Jan Siegel MD Ordered Studies 05/28/21 11:33 CT abd pelvis wo con Stat 05/28/21 15:00 FL retrograde includes kub Routine 05/29/21 08:26 MR thoracic spine wo con Routine Hospital Course (1) Ureteral stone with hydronephrosis: Patient is an 80 yr male with 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 Rehospitalized [facility] 05/22-05/26 secondary to fall, weakness, acute on chronic CKD, complicated UTI, rhabdomyolysis. Sepsis Obstructive uropathy secondary to right ureteral stone Acute Kidney Injury on CKD III Moderate hydronephrosis of right kidney Marked left renal atrophy with chronic left ureteral stent in place secondary to stricture in setting of partial nephrectomy due to history of renal oncocytoma Anasarca Baseline creatinine 1.6-1.7 CT ABD:7 mm right ureteropelvic ejection calculus results in moderate right hydronephrosis with perinephric stranding. S/P Right ureteral stent placement on 05/28/2021 Cr:5.46>4.9>3.33>2.49>2.1 Appreciate Nephrology/Urology help Diuresing well Avoid nephrotoxic agents as able Monitor renal function Plan to discontinue Losartan for now Needs follow-up with urology and nephrology upon discharge Right pyelonephritis, complicated UTI Recent hospitalization urine culture grew multidrug-resistant Pseudomonas, sensitive to cefepime Did not complete full course of treatment and was transitioned on oral Omnicef Repeat urine Cx: pending Blood cultures: No growth Continue IV cefepime for 5 more days to complete 2 week course Recent fall Back pain --Thoracic MRI:. No evidence for thoracic compression fracture or marrow edema. Widening of the T9-T10 disc space level anteriorly which appears chronic in nature with no edematous changes present. There is disc/osteophyte complex present posteriorly at this level with mild central canal stenosis present. There is no evidence for cord compression. Evidence for old anterior wedge deformity of L1. --Lumbar Spine x ray:No focal osteopenia is seen to suggest osteomyelitis. No acute fracture. Extensive degenerative changes are seen. --Sacral x ray: No focal osteopenia is seen to suggest osteomyelitis. No acute fracture. Extensive degenerative changes are seen. 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 vascular yearly follow up, next 02/23/22 HTN continue atenolol HLD continue statin BPH rosas cath in place, placed by [facility] to monitor I/O on Flomax Gout continue allopurinol--renally adjusted DVT Px: Heparin SQ Disposition Rehab Total Time Total Time Spent Total Time Spent (In Minutes): 46 minutes Discharge Plan Discharge Items Patient Disposition: Transfer Inpatient Rehab Fac Reason For Visit: ELIE Discharge Diagnosis: Sepsis Obstructive uropathy secondary to right ureteral stone Acute Kidney Injury on CKD III Moderate hydronephrosis of right kidney Right pyelonephritis, complicated UTI Activity: Per Instructions section Exercise/Sports: Gradually increase as tolerated Non-emergency contact: Primary Care Provider, Change Release Manager and Urologist Call non-emergency contact if: you have any medication questions, your symptoms worsen, your pain is concerning for you and you have a fever [facility] - Diet: Dialysis Renal Addtl Attending Provider Instructions: Follow-up with your primary care physician in 1 week upon discharge from Rehab facility Follow up with your Urologist Dr.Pitts Calvert in 2 weeks for further management of your kidney stones Follow-up with your Change Release Manager in 1-2 weeks ---Continue Rosas Catheter for 2 more days and then can be removed as recommended by your Change Release Manager --Continue IV Cefepime 1000 mg daily for 5 more days --Your Losartan is discontinued as recommended by your Change Release Manager Seek immediate medical attention if your symptoms reoccur or worsen Please take all medications as instructed on discharge list below. Please call if you have any questions or problems. You can reach a [facility] hospitalist on duty at [facility] 24 hours a day by calling [phone] Pending Studies at Discharge: No Stand-Alone Forms: My [facility] Skilled Items Patient informed of condition?: Yes DNR: No Discharge Level of Care: Acute rehab Communicable Disease: No Discharge Prognosis: Stable Lines: Peripheral IV Urinary Catheter: Yes Medications and DC Order Prescriptions: New magnesium oxide 400 mg (241.3 mg magnesium) Tablet 400 mg PO BID Qty: 0 RF: 0 Advanced Probiotic 625 mg (10 billion cell) Capsule 2 cap PO DAILY Qty: 0 RF: 0 cefepime in dextrose 5 % 1 gram/50 mL piggyback 1 g IV DAILY Qty: 5 RF: 0 Continued acetaminophen [Tylenol] 325 mg Tablet 650 mg PO Q4 PRN (Reason: Pain) RF: 0 atorvastatin 20 mg tablet 20 mg PO DAILY RF: 0 polyethylene glycol 3350 [Miralax] 17 gram Powder In Packet 17 g PO .DAILY @LUNCH PRN (Reason: Constipation) RF: 0 sennosides-docusate sodium [Senokot-S] 8.6-50 mg Tablet 1 tab-cap PO .DAILY @ LUNCH PRN (Reason: Constipation) RF: 0 cyanocobalamin (vitamin B-12) [Vitamin B-12] 1,000 mcg Tablet 1,000 mcg PO DAILY RF: 0 allopurinol 100 mg Tablet 200 mg PO DAILY RF: 0 aspirin [Aspir-Low] 81 mg Tablet,Delayed Release (Dr/Ec) 81 mg PO DAILY RF: 0 tolterodine 2 mg Tablet 4 mg PO DAILY RF: 0 tamsulosin 0.4 mg capsule 0.4 mg PO DAILY RF: 0 pantoprazole 40 mg Tablet,Delayed Release (Dr/Ec) 40 mg PO HS RF: 0 omeprazole 20 mg capsule,delayed release(DR/EC) 20 mg PO DAILY RF: 0 montelukast 10 mg tablet 10 mg PO DAILY RF: 0 Santyl 250 unit/gram Ointment 1 applic TOPICAL DAILY RF: 0 fluticasone propionate 50 mcg/actuation spray,suspension 2 spray INTRANASAL DAILY RF: 0 sertraline 50 mg tablet 50 mg PO DAILY RF: 0 atenolol 50 mg tablet 50 mg PO DAILY RF: 0 docusate sodium 100 mg Tablet 100 mg PO BID RF: 0 loratadine 10 mg Tablet 10 mg PO DAILY RF: 0 psyllium 3.4 gram/5.8 gram Powder 3.4 g PO DAILY RF: 0 cholecalciferol (vitamin D3) [Vitamin D3] 25 mcg (1,000 unit) Tablet 25 mcg PO DAILY RF: 0 Discontinued enoxaparin 30 mg/0.3 mL Solution 30 mg SUBCUT DAILY RF: 0 losartan 25 mg tablet 25 mg PO QPM RF: 0 cefdinir 300 mg capsule 300 mg PO DAILY RF: 0 Discharge Orders: Discharge Order (Routine); Ordered 06/05/21 Ordered By: Js Pedroza/Other Patient Handouts: Detrol LA 24 HR Extended Release Oral Capsule 2 mg, Levsin Oral Tablet 0.125 mg Admission Data Admit Date/Time: 05/28/21 14:22 Attending Provider: Js Davis Admit Provider: Js Davis Primary Care Provider: [facility] Other Providers: Js Davis ; Shelly Us ; Moises Burgess ; Tulio Mack ; Gracia Churchill ; Gerardo Johnson I. ; David Delgadillo II ; Maura Girard. ; Luis Felipe Booker ; Michael Larson ; Jan Siegel. ; Delta Urbano ; [facility]
[2021-06-05] MEDS ORDERED: CEFEPIME 1,000 MG in SYRINGE 0 ML IV SCH (15:00)
--- NOTE | 2021-06-10 10:03 | Coding Query ---
PRESENT ON ADMISSION QUERY To promote full compliance with coding requirements relating to pateint care, physician participation is requested in all cases of facilities clerk uncertainty. Please assist us with the question(s) below: Please place an X within the parenthesis (x). The following diagnosis listed in this patient's medical record require physician assistance to determine if they were present on admission (POA) or not. Please advise for each diagnosis whether it was present on admission, not present on admission, or if it was clinically undetermined. 1. SEPSIS - (documentation begins on 05/30/21 Progress Note through Discharge Summary) (x ) Present On Admission ( ) Not Present On Admission ( ) Clinically Undetermined Thank you Nafisa Laguerre *Definition of the present on admission (POA)-Present on admission is defined as present at the time the order for inpatient admission occurs. Conditions that develop during an outpatient encounter prior to a written order for inpatient admission (including emergency department, observation, or outpatient surgery) are considered present on admission. MTDD
== END 2021-06-05 15:09 | DRG 853 ==
LOC: ED 11:07 → SUATTDRO 14:22 → 2N 14:22